=== PATIENT | female | born 2000 | race Caucasian/White ===

== ENCOUNTER 2024-07-24 11:12 | Emergency (ER) | payer BC, SELFPAY ==
[2024-07-24 11:20] VITALS: BP 109/66; PULSE 70; TEMP 36.5; O2SAT 100; BMI 24.6
--- NOTE | 2024-07-24 11:30 | US_ITS ---
[address] [address] Patient Name: RONALDO SANCHEZ MRN: [id number] date: 2000 Sex: F Assigned Patient Location: ER Current Patient Location: ER Accession/Order Number: [id number] Exam Date: 07/24/2024 11:31 Report Date: 07/24/2024 12:40 At the request of: ANGELITA DOVE Procedure: US OB transvaginal EXAMINATION: US OB transvaginal HISTORY: cramping, bleeding COMPARISON: No relevant comparison available. FINDINGS: The gestational sac measures 6.2 mm, irregularly-shaped with fluid around the amniotic brain CRL: 3.73 cm, 10 weeks 4 days Yolk sac: 5.3 mm Heart rate: Not observed Cervix: 4.1 cm, fluid within the endocervical canal measuring up to 3.1 mm The uterus is normal, anteverted The ovaries are not visualized Clinical age: Unknown Ultrasound age: 10 weeks 4 days Ultrasound LUZ ELENA: 02/15/2025 US/US OB transvaginal IMPRESSION: No cardiac activity observed consistent with demise Electronically authenticated by: SAKINA HERNANDEZ Date: 07/24/2024 12:40
[2024-07-24 11:41] LABS: Bilirubin Urine NEGATIVE (NEGATIVE); Blood Urine MODERATE (NEGATIVE); Clarity Urine CLEAR (CLEAR); Color Urine LT. YELLOW (YELLOW); Glucose Urine UA NEGATIVE (NEGATIVE); Ketones Urine NEGATIVE (NEGATIVE); Leukocyte Esterase Urine NEGATIVE (NEGATIVE); Nitrite Urine NEGATIVE (NEGATIVE); Protein Urine NEGATIVE (NEG/TRACE); Specific Gravity Urine 1.025 (1.005-1.025); Urobilinogen Urine 0.2 EU/dL (0.2-1.0); pH Urine 6.5 (5.0-9.0)
[2024-07-24 11:44] LABS: HCG Qualitative Urine* POSITIVE (NEGATIVE)
[2024-07-24 11:45] LABS: Internal Control Within Normal Limits
--- NOTE | 2024-07-24 11:45 | ED_ITS ---
HPI HPI - General Adult General Chief complaint: Urogenital-Female Stated complaint: BLOOD IN URINE Time Seen by Provider: 07/24/24 11:27 Source: patient and family Mode of arrival: walk-in Limitations: no limitations History of Present Illness HPI narrative: Patient presented to the emergency department for evaluation of vaginal bleeding. Patient states that she is currently approximately 6 weeks , based on when they started having, states she has not had a period in approximately 3 months, she has PCOS. Last menstrual period was in March. Has irregular periods. States that she has had multiple tests that became positive at home. Patient states that starting last night she noted some pelvic discomfort, show Sonali Little bit of cramping this morning. States that on her underwear yesterday there was some brown discharge, and this morning it was more bright, showed a bright spot of red in the toilet bowl, a small little pool, and she noted some blood on her underwear today and then again in the bathroom when she went to go urinate. Is having mild cramping intermittently, not current. G1, P0. Related Data Previous Rx's ?Medication ?Instructions ?Recorded cephalexin 500 mg capsule 500 mg PO Q8H 7 days #21 caps 07/24/24 Allergies Allergy/AdvReac Type Severity Reaction Status Date / Time No Known Drug Allergies Allergy Verified 07/24/24 11:23 Opioid HPI Opioid Management Most Recent Opioid Data: No Data to Display Review of Systems ROS Narrative Negative unless otherwise stated in the HPI PFSH PFSH Social History Little interest or pleasure in doing things: not at all Feeling down, depressed, or hopeless: not at all Exam Narrative Exam Narrative: General: NAD, AAOx3, no distress Respiratory: respiratory effort normal, speaks in full sentences, no tripod position, no accessory muscle use. Lungs clear to auscultation without rhonchi, wheezes, rales Cardiac: Regular rate and rhythm, no edema, regular s1/s2, no m/g/r Abdomen: Soft, ND/NT. No evidence of fluid wave. No pulsatile masses on exam, rebound tenderness, Mcbride sign or pain over Mcburney's point. Constitutional Vital Signs, click to edit/add: Last Vital Signs Temp 98.1 F 07/24/24 13:08 Pulse 73 07/24/24 13:08 Resp 16 07/24/24 13:08 BP 102/66 07/24/24 13:08 Pulse Ox 99 07/24/24 13:08 O2 Del Method Room Air 07/24/24 13:08 Course Vital Signs Vital signs: Vital Signs Temperature 97.7 F 07/24/24 11:20 Pulse Rate 70 07/24/24 11:20 Respiratory Rate 16 07/24/24 11:20 Blood Pressure 109/66 07/24/24 11:20 Pulse Oximetry 100 07/24/24 11:20 Oxygen Delivery Method Room Air 07/24/24 11:20 Temperature 98.1 F 07/24/24 13:08 Pulse Rate 73 07/24/24 13:08 Respiratory Rate 16 07/24/24 13:08 Blood Pressure 102/66 07/24/24 13:08 Pulse Oximetry 99 07/24/24 13:08 Oxygen Delivery Method Room Air 07/24/24 13:08 Medical Decision Making MDM Narrative Medical decision making narrative: MDM Patient with history as above presented with vaginal bleeding, cramping. History obtained from patient. Patient was nontoxic, stable. Ambulatory. Exam as above. EKG reviewed. Labs reviewed. Independently reviewed imaging. Reviewed external records. Differential diagnosis considered. Overall presentation is consistent with threatened miscarriage 1412 patient was seen and evaluated for above-stated complaint. Labs show no specific abnormalities. Ultrasound was done showing 10-week 2 days, no heart tones. Likely threatened miscarriage incomplete miscarriage. Has OB to follow-up with, appointment is not until the . Advanced guidance has been given. Vss, pex is benign at this time. Pt to fu with pcp 1-2 days for reeval, rter should sx worsen, persist or become worrysome in any way. All incidental laboratory studies, EKG, radiologic findings have been noted and discussed with patient. Patient was reevaluated with a benign exam at this time. Pt expressed understanding and agreement with plan of care at this time. Will fu as planned. Pt stable for discharge. Lab Data Labs: Lab Results 07/24/24 07/24/24 Range/Units 11:31 11:44 WBC 6.0 (4.0-11.0) 10^3/uL RBC 4.01 L (4.20-5.40) 10^6/uL Hgb 12.5 (12.0-16.0) g/dL Hct 37.2 (36.0-48.0) % MCV 92.8 (81.0-99.0) fL MCH 31.2 (26.7-34.0) pg MCHC 33.6 (29.9-35.2) g/dL RDW 12.8 (11.0-15.0) % Plt Count 238 (150-450) 10^3/uL MPV 10.3 (9.5-13.5) fL Neut % (Auto) 70.2 (43.0-75.0) % Lymph % (Auto) 22.2 (20.5-60.0) % [place] % (Auto) 5.5 (1.7-12.0) % Eos % (Auto) 1.8 (0.9-7.0) % Baso % (Auto) 0.3 (0.2-2.0) % Neut # (Auto) 4.2 (1.4-6.5) 10^3/uL Lymph # (Auto) 1.3 (1.2-3.8) 10^3/uL [place] # (Auto) 0.3 (0.3-0.8) 10^3/uL Eos # (Auto) 0.1 (0.0-0.7) 10^3/uL Baso # (Auto) 0.0 (0.0-0.1) 10^3/uL Abs Immat Gran (auto) 0.00 (0.00-0.03) 10^3/uL Imm/Tot Granulo (auto) 0.0 (0.0-0.5) % Sodium 135 L (136-145) mmol/L Potassium 3.7 (3.5-5.1) mmol/L Chloride 100 (98-107) mmol/L Carbon Dioxide 24.0 (21.0-32.0) mmol/L Anion Gap 14.7 BUN 8.0 (7.0-18.0) mg/dL Creatinine 0.68 (0.55-1.02) mg/dL Est GFR ( Amer) >60 (>=60 mL/min/1.73m^2) Est GFR (Non-Af Amer) >60 (>=60 mL/min/1.73m^2) BUN/Creatinine Ratio 11.8 Glucose 87 (74-106) mg/dL Calcium 9.3 (8.5-10.1) mg/dL HCG, Quant 4047 mIU/mL Urine Color Lt. yellow (YELLOW) Urine Clarity Clear (CLEAR) Urine pH 6.5 (5.0-9.0) Ur Specific [place] 1.025 (1.005-1.025) Urine Protein Negative (NEG/TRACE) mg/dL Urine Glucose (UA) Negative (NEGATIVE) mg/dL Urine Ketones Negative (NEGATIVE) mg/dL Urine Occult Blood Moderate A (NEGATIVE) Urine Nitrite Negative (NEGATIVE) Urine Bilirubin Negative (NEGATIVE) Urine Urobilinogen 0.2 (0.2-1.0) EU/dL Ur Leukocyte Esterase Negative (NEGATIVE) Urine RBC 2-5 A (0-2) #/HPF Urine WBC 2-5 A (NONE SEEN) #/HPF Ur Squamous Epith Cells Few A (NONE/RARE) #/LPF Urine Crystals None seen (None Seen) #/HPF Urine Bacteria Small A (NONE SEEN) #/HPF Urine Casts None seen (NONE SEEN) #/LPF Urine Mucus Moderate A (NONE SEEN) Ur Culture Indicated? Yes Urine HCG, Qual Positive A (NEGATIVE) Blood Type A Positive Antibody Screen Negative Discharge Plan Discharge Chief Complaint: Urogenital-Female Clinical Impression: Threatened miscarriage in early Patient Disposition: Home, Self-Care Time of Disposition Decision: 14:10 Prescriptions / Home Meds: New cephalexin 500 mg capsule 500 mg PO Q8H 7 Days Qty: 21 0RF Print Language: Scottish Instructions: Threatened Miscarriage (ED) Additional Instructions: Call your OB office today Referrals: Hamilton Monaco MD [Primary Care Provider] - 1 week
[2024-07-24 11:46] LABS: Urine Microscopic Indicated YES
[2024-07-24 11:49] LABS: Basophils Percent Auto 0.3 % (0.2-2.0); Eosinophils Absolute Auto 0.1 10^3/uL (0.0-0.7); Eosinophils Percent Auto 1.8 % (0.9-7.0); Hematocrit 37.2 % (36.0-48.0); Hemoglobin 12.5 g/dL (12.0-16.0); Lymphocytes Absolute Auto 1.3 10^3/uL (1.2-3.8); Lymphocytes Percent Auto 22.2 % (20.5-60.0); Mean Corpuscular HGB Conc 33.6 g/dL (29.9-35.2); Mean Corpuscular Hemoglobin 31.2 pg (26.7-34.0); Mean Corpuscular Volume 92.8 fL (81.0-99.0); Mean Platelet Volume 10.3 fL (9.5-13.5); Monocytes Absolute Auto 0.3 10^3/uL (0.3-0.8); Monocytes Percent Auto 5.5 % (1.7-12.0); Neutrophils Absolute Auto 4.2 10^3/uL (1.4-6.5); Neutrophils Percent Auto 70.2 % (43.0-75.0); Platelet Count 238 10^3/uL (150-450); Red Blood Count 4.01 10^6/uL (4.20-5.40); Red Cell Distribution Width 12.8 % (11.0-15.0)
[2024-07-24 11:59] LABS: Bacteria Urine SMALL #/HPF (NONE SEEN); Crystals Seen? None Seen #/HPF (None Seen); Mucus Urine MODERATE (NONE SEEN); Squamous Epithelial Cell Urine FEW #/LPF (NONE/RARE)
[2024-07-24 12:00] LABS: Cast Seen? NONE SEEN #/LPF (NONE SEEN); Urine Culture Indicated YES
[2024-07-24 12:33] LABS: Anion Gap 14.7; BUN Creatinine Ratio 11.8; Calcium 9.3 mg/dL (8.5-10.1); Chloride 100 mmol/L (98-107); Estimated GFR (African America >60 (>=60 mL/min/1.73m^2); Estimated GFR (Non-African Ame >60 (>=60 mL/min/1.73m^2); Glucose 87 mg/dL (74-106); Potassium 3.7 mmol/L (3.5-5.1); Sodium 135 mmol/L (136-145)
[2024-07-24 12:36] LABS: HCG Quantitative 4047 mIU/mL
[2024-07-24 13:08] VITALS: BP 102/66; PULSE 73; TEMP 36.7; O2SAT 99
== END 2024-07-24 14:26 | disposition home or self-care (01) ==
PROVIDERS: Emergency Provider Emergency Medicine; PCP Family Medicine
DX: O20.0 Threatened abortion (principal); O99.281 Endocrine, nutritional and metabolic diseases complicating pregnancy, first trimester; E28.2 Polycystic ovarian syndrome; Z3A.01 Less than 8 weeks gestation of pregnancy
CPT/HCPCS: 36415; 76817; 80048; 81001; 84702; 84703; 85025; 86850; 86900; 86901; 87086; 99284

== ENCOUNTER 2024-07-26 01:07 | Emergency (ER) | payer BC, SELFPAY ==
[2024-07-26 01:12] VITALS: BP 130/79; PULSE 85; TEMP 36.8; O2SAT 99; BMI 24.6
--- NOTE | 2024-07-26 01:16 | ED_ITS ---
HPI - Female Genitourinary General Chief complaint: OB/Uterine Contractions Stated complaint: miscarriage 10 weeks Time Seen by Provider: 07/26/24 01:13 Source: patient Mode of arrival: walk-in Limitations: no limitations History of Present Illness HPI Narrative: This 23-year-old female G1, P0 who is approximately 10 weeks and had an ultrasound done on 07/24/2024 that showed demise with a 10-week gestational fetus with no heart rate presents for evaluation after she passed the fetus at home and is having abdominal cramping and vaginal bleeding. She states that approximately 1 hour prior to arrival while she was sleeping she woke up with some lower abdominal cramping. She went to the bathroom to change her pad at which time the fetus was present on her pad. Since that time she has had moderate vaginal bleeding. Her notes that she bled through her underwear while sitting in the lobby waiting to come back. She denies any chest pain or shortness of breath. She denies any dizziness. She has not had a fever. She has a small fetus, consistent with a 10-week gestation in a Ziploc bag Her SENIOR QA ENGINEER is Dr. Joya Her blood type is A positive. Related Data Previous Rx's ?Medication ?Instructions ?Recorded cephalexin 500 mg capsule 500 mg PO Q8H 7 days #21 caps 07/24/24 Allergies Allergy/AdvReac Type Severity Reaction Status Date / Time No Known Drug Allergies Allergy Verified 07/26/24 01:14 Review of Systems ROS Status of ROS 10 or more systems reviewed and unremark able except as noted in history and below PFSH PFSH Social History Little interest or pleasure in doing things: not at all Feeling down, depressed, or hopeless: not at all Exam Narrative Exam Narrative: Vital signs and Nursing Notes reviewed: Patient is afebrile with a normal pulse, normal blood pressure, she is not hypoxic with pulse ox of 99% on room air General: Tearful alert female, no respiratory distress HEENT: Normocephalic atraumatic, mucous membranes are moist and pink, eyes are clear, normal conjunctiva, vision is grossly intact Chest: Lungs are clear to auscultation with good air entry, there is no wheezing rhonchi or rales appreciated no accessory muscle use, patient is speaking in complete sentences-no chest wall tenderness to palpation CVS: Regular rate and rhythm S1-S2, no murmurs rubs or gallops, pulses are brisk and equal bilaterally ABD: Soft, flat, mild lower abdominal tenderness with no rebound guarding or rigidity : There is a moderate size clot at the vaginal introitus. Pelvic exam was performed with RN at bedside. The gestational sac was gently removed with Alison forceps. It appears that I was able to remove the entire gestational sac intact. Pelvic exam was performed again after the gestational sac was removed and there is mild bleeding but no excessive hemorrhage Extremities: Moving all extremities, no lower extremity tenderness or swelling noted, negative Homans' sign, pulses are brisk and equal bilaterally Skin: Normal in appearance without rash,pallor, petechiae or purpura Neuro: No focal deficits Constitutional Vital Signs, click to edit/add: Last Vital Signs Temp 98.3 F 07/26/24 01:12 Pulse 85 07/26/24 01:12 Resp 18 07/26/24 01:12 BP 130/79 07/26/24 01:12 Pulse Ox 99 07/26/24 01:12 O2 Del Method Room Air 07/26/24 01:12 Course Vital Signs Vital signs: Vital Signs Temperature 98.3 F 07/26/24 01:12 Pulse Rate 85 07/26/24 01:12 Respiratory Rate 18 07/26/24 01:12 Blood Pressure 130/79 07/26/24 01:12 Pulse Oximetry 99 07/26/24 01:12 Oxygen Delivery Method Room Air 07/26/24 01:12 Temperature 98.3 F 07/26/24 01:12 Pulse Rate 85 07/26/24 01:12 Respiratory Rate 18 07/26/24 01:12 Blood Pressure 130/79 07/26/24 01:12 Pulse Oximetry 99 07/26/24 01:12 Oxygen Delivery Method Room Air 07/26/24 01:12 MDM - Female Genitourinary MDM Narrative Medical decision making narrative: This 23-year-old female presents for evaluation after she passed a 10-week fetus at home. She was seen here 2 days ago after having some abdominal cramping and vaginal bleeding and an ultrasound was performed that showed a 10-week fetus with no heart tones consistent with demise. She was sent home and has a follow-up later today with her SENIOR QA ENGINEER however during the night she started having some abdominal cramping and vaginal bleeding and passed the fetus at home. She brought the fetus to the emergency department with her. It was easily identifiable as a fetus. A pelvic exam was performed as she was having vaginal bleeding. There was a moderate size clot at the vaginal introitus and the gestational sac was gently removed with jesse forceps. Repeat pelvic exam after removal of the gestational sac did not reveal any excessive bleeding but some mild bleeding. Routine labs were ordered. She has a normal white count and hemoglobin is stable from 2 days ago. Electrolytes are normal. The fetus and gestational sac and large blood clot was sent to the lab. The patient does not wish to have genetic testing performed. She was reevaluated after being treated with morphine and Zofran and remains hemodynamically stable. She had some burning epigastric discomfort and was given a dose of toradol and some water which resolved her symptoms. She has not had any recurrent heavy vaginal bleeding. She was encouraged to keep her appointment with Dr Joya later today. Medical Records Attestation: I reviewed the patient's medical records. Medical records narrative: [place] [address] Ultrasound Report Signed Patient: RONALDO SANCHEZ MR#: [id number] : 2000 Acct:[id number] Age/Sex: 23 / F ADM Date: 07/24/24 Loc: ER Attending Dr: Ordering Physician: Angelita Aragon M.D. Date of Service: 07/24/24 Procedure(s): US OB transvaginal Accession Number(s): [id number] cc: Angelita Aragon M.D.; Hamilton Monaco M.D.~ [facility] [place] [id number] Patient Name: RONALDO SANCHEZ MRN: [id number] date: 2000 Sex: F Assigned Patient Location: ER Current Patient Location: ER Accession/Order Number: [id number] Exam Date: 07/24/2024 11:31 Report Date: 07/24/2024 12:40 At the request of: ANGELITA ARAGON Procedure: US OB transvaginal EXAMINATION: US OB transvaginal HISTORY: cramping, bleeding COMPARISON: No relevant comparison available. FINDINGS: The gestational sac measures 6.2 mm, irregularly-shaped with fluid around the amniotic brain CRL: 3.73 cm, 10 weeks 4 days Yolk sac: 5.3 mm Heart rate: Not observed Cervix: 4.1 cm, fluid within the endocervical canal measuring up to 3.1 mm The uterus is normal, anteverted The ovaries are not visualized Clinical age: Unknown Ultrasound age: 10 weeks 4 days Ultrasound LUZ ELENA: 02/15/2025 US/US OB transvaginal IMPRESSION: No cardiac activity observed consistent with demise Electronically authenticated by: SAKINA HERNANDEZ Date: 07/24/2024 12:40 Lab Data Labs: Lab Results 07/26/24 Range/Units 01:30 WBC 7.7 (4.0-11.0) 10^3/uL RBC 4.05 L (4.20-5.40) 10^6/uL Hgb 12.8 (12.0-16.0) g/dL Hct 37.5 (36.0-48.0) % MCV 92.6 (81.0-99.0) fL MCH 31.6 (26.7-34.0) pg MCHC 34.1 (29.9-35.2) g/dL RDW 12.7 (11.0-15.0) % Plt Count 231 (150-450) 10^3/uL MPV 10.2 (9.5-13.5) fL Neut % (Auto) 66.5 (43.0-75.0) % Lymph % (Auto) 24.4 (20.5-60.0) % [place] % (Auto) 6.1 (1.7-12.0) % Eos % (Auto) 2.6 (0.9-7.0) % Baso % (Auto) 0.3 (0.2-2.0) % Neut # (Auto) 5.1 (1.4-6.5) 10^3/uL Lymph # (Auto) 1.9 (1.2-3.8) 10^3/uL [place] # (Auto) 0.5 (0.3-0.8) 10^3/uL Eos # (Auto) 0.2 (0.0-0.7) 10^3/uL Baso # (Auto) 0.0 (0.0-0.1) 10^3/uL Abs Immat Gran (auto) 0.01 (0.00-0.03) 10^3/uL Imm/Tot Granulo (auto) 0.1 (0.0-0.5) % PT 10.2 (9.0-11.6) sec INR 0.96 Sodium 135 L (136-145) mmol/L Potassium 3.6 (3.5-5.1) mmol/L Chloride 101 (98-107) mmol/L Carbon Dioxide 20.0 L (21.0-32.0) mmol/L Anion Gap 17.6 BUN 8.0 (7.0-18.0) mg/dL Creatinine 0.69 (0.55-1.02) mg/dL Est GFR ( Amer) >60 (>=60 mL/min/1.73m^2) Est GFR (Non-Af Amer) >60 (>=60 mL/min/1.73m^2) BUN/Creatinine Ratio 11.6 Glucose 95 (74-106) mg/dL Calcium 9.6 (8.5-10.1) mg/dL Total Bilirubin 0.7 (0.2-1.0) mg/dL AST 15 (15-37) U/L ALT 11 L (14-59) U/L Alkaline Phosphatase 76 (46-116) U/L Total Protein 7.2 (6.4-8.2) g/dL Albumin 3.4 (3.4-5.0) g/dL Globulin 3.8 g/dL Albumin/Globulin Ratio 0.9 Discharge Plan Discharge Chief Complaint: OB/Uterine Contractions Clinical Impression: Complete miscarriage Patient Disposition: Home, Self-Care Prescriptions / Home Meds: No Action cephalexin 500 mg capsule 500 mg PO Q8H 7 Days Qty: 21 0RF Print Language: [place] Citizen Referrals: Hamilton Monaco MD [Primary Care Provider] - 1 week
[2024-07-26] MEDS: ONDANSETRON PF 4 MG/2 ML VIAL IV (01:37)
[2024-07-26 01:38] LABS: Basophils Percent Auto 0.3 % (0.2-2.0); Eosinophils Absolute Auto 0.2 10^3/uL (0.0-0.7); Eosinophils Percent Auto 2.6 % (0.9-7.0); Hematocrit 37.5 % (36.0-48.0); Hemoglobin 12.8 g/dL (12.0-16.0); Immature Granulocytes Abs Auto 0.01 10^3/uL (0.00-0.03); Immature Granulocytes Pct Auto 0.1 % (0.0-0.5); Lymphocytes Absolute Auto 1.9 10^3/uL (1.2-3.8); Lymphocytes Percent Auto 24.4 % (20.5-60.0); Mean Corpuscular HGB Conc 34.1 g/dL (29.9-35.2); Mean Corpuscular Hemoglobin 31.6 pg (26.7-34.0); Mean Corpuscular Volume 92.6 fL (81.0-99.0); Mean Platelet Volume 10.2 fL (9.5-13.5); Monocytes Absolute Auto 0.5 10^3/uL (0.3-0.8); Monocytes Percent Auto 6.1 % (1.7-12.0); Neutrophils Absolute Auto 5.1 10^3/uL (1.4-6.5); Neutrophils Percent Auto 66.5 % (43.0-75.0); Platelet Count 231 10^3/uL (150-450); Red Blood Count 4.05 10^6/uL (4.20-5.40); Red Cell Distribution Width 12.7 % (11.0-15.0); White Blood Count 7.7 10^3/uL (4.0-11.0)
[2024-07-26] MEDS: MORPHINE SULFATE 4 MG/ML VIAL IV (01:40)
[2024-07-26 01:51] LABS: Alanine Aminotransferase 11 U/L (14-59); Albumin Globulin Ratio 0.9; Albumin Level 3.4 g/dL (3.4-5.0); Alkaline Phosphatase 76 U/L (46-116); Anion Gap 17.6; Aspartate Amino Transferase 15 U/L (15-37); BUN Creatinine Ratio 11.6; Bilirubin Total 0.7 mg/dL (0.2-1.0); Calcium 9.6 mg/dL (8.5-10.1); Chloride 101 mmol/L (98-107); Estimated GFR (African America >60 (>=60 mL/min/1.73m^2); Estimated GFR (Non-African Ame >60 (>=60 mL/min/1.73m^2); Globulin 3.8 g/dL; Glucose 95 mg/dL (74-106); INR 0.96; Potassium 3.6 mmol/L (3.5-5.1); Prothrombin Time 10.2 sec (9.0-11.6); Sodium 135 mmol/L (136-145); Total Protein 7.2 g/dL (6.4-8.2)
[2024-07-26] MEDS: KETOROLAC TROMETHAMINE 30 MG/ML VIAL IVP (03:02)
[2024-07-26 03:37] VITALS: BP 128/72; PULSE 80; O2SAT 100
== END 2024-07-26 03:37 | disposition home or self-care (01) ==
PROVIDERS: Emergency Provider Emergency Medicine; PCP Family Medicine
DX: O03.9 Complete or unspecified spontaneous abortion without complication (principal)
CPT/HCPCS: 36415; 80053; 85025; 85610; 96374; 96375; 99284; J1885; J2270; J2405

== ENCOUNTER 2024-07-31 12:55 | Outpatient (OUT) | payer BC, SELFPAY ==
[2024-07-31 13:38] LABS: HCG Quantitative 176 mIU/mL
== END 2024-07-31 12:56 | disposition home or self-care (01) ==
LOC: LAB 12:56
PROVIDERS: PCP Family Medicine; Visit Provider Physician Assistant
DX: O36.80X0 Pregnancy with inconclusive fetal viability, not applicable or unspecified (principal)
CPT/HCPCS: 36415; 84702

== ENCOUNTER 2024-08-02 14:33 | Outpatient (OUT) | payer BC, SELFPAY ==
--- NOTE | 2024-08-02 14:35 | US_ITS ---
The [address] [address] Patient Name: RONALDO SANCHEZ MRN: [id number] date: 2000 Sex: F Assigned Patient Location: [facility] Current Patient Location: Accession/Order Number: [id number] Exam Date: 08/02/2024 14:36 Report Date: 08/04/2024 07:21 At the request of: PRINCE ISABEL Procedure: US pelvis transvaginal EXAMINATION: US pelvis transvaginal HISTORY: POST MISCARRIAGE COMPARISON: No relevant comparison available. FINDINGS: The uterus is prominent in size measuring 11.1 x 4.7 x 7.0 cm. No focal myometrial mass. The uterus is anteverted, anteflexed. The endometrium measures 5 mm, normal. Noted in the cervix is a 9.4 x 3.3 x 6.6 mm area of soft tissue echotexture, indeterminate The right ovary is normal measuring 2.5 x 1.8 x 3.3 cm. Normal color and Doppler flow The left ovary is normal measuring 3.5 x 0.7 x 1.8 cm. Normal color and Doppler flow No free fluid US/US pelvis transvaginal IMPRESSION: 9.4 mm soft tissue lesion in the cervix without color flow, nonspecific Electronically authenticated by: SAKINA HERNANDEZ Date: 08/04/2024 07:21
--- OUTSIDE RECORDS SUMMARY | 2024-08-02 14:36 | XMS_ITS | CCD ---
Author Organization [facility] Care Team Providers Care A&P Technician Name Role Phone Ventura, Natasha Unavailable MD Hamilton Motta Primary Care Provider [phone] ANASTACIO Ventura Attending Provider [phone] PAY ., DR DURAND Admitting Unavailable PAY ., DR DURAND Consulting Unavailable PAY ., DR DURAND Attending Unavailable ÁNGELA, DR HAMILTON Nicholson Primary Care Unavailable KAYCE ., CED Consulting Unavailable Hamilton Motta MD Primary Care Provider [phone] DO Sarah Choi Attending Provider Sarah Choi Attending Unavailable Steph, Sarah Lynch Admitting Unavailable KHRIS KIM Attending Unavailable AIDE ISABEL Attending Unavailable HAMILTON MOTTA Attending Unavailable Medications Current Medications Medication Drug Class(es) Dates Sig (Normalized) Sig (Original) azithromycin 250 mg oral tablet (3 sources) Macrolide Antimicrobial Start: 09-29-2023 End: 07-26-2024 azithromycin (Zithromax Z-Dayton) 250 MG tablet Indications: Dysuria Take 2 tablets (500 mg) on Day 1, followed by 1 tablet (250 mg) once daily on Days 2 through 5. 6 tablet 09/29/2023 07/26/2024 Discontinued cephalexin 500 mg oral capsule (2 sources) Cephalosporin Antibacterial Start: 07-24-2024 take 1 capsule by mouth every eight hours cephalexin (Keflex) 500 MG capsule Take 500 mg by mouth every 8 (eight) hours 07/24/2024 Active Ethinyl Estradiol / norgestimate (5 sources) Progestin, Estrogen Start: 02-22-2024 End: 07-26-2024 take 1 tablet by mouth once daily norgestimate-ethin yl estradiol (Tri-Linyah) 0.18/0.215/0.25 MG-35 MCG tablet Indications: Family planning Take 1 tablet by mouth Daily 28 tablet 5 02/22/2024 07/26/2024 Discontinued Start: 02-22-2024 End: 02-21-2025 take 1 tablet by mouth once daily norgestimate-ethinyl estradiol (Tri-Linyah) 0.18/0.215/0.25 MG-35 MCG tablet Indications: Family planning Take 1 tablet by mouth Daily 28 tablet 5 02/22/2024 02/21/2025 Active take 1 tablet by kannan once daily Tri-Linyah 0.18/0.215/0.25 MG-35 MCG TAKE 1 TABLET BY MOUTH DAILY Oral for 28 Days Active nitrofurantoin, macrocrystals 25 mg / nitrofurantoin, monohydrate 75 mg oral capsule (3 sources) Nitrofuran Antibacterial Start: 02-14-2023 take 1 capsule by mouth every twelve hours Macrobid 100 MG 1 capsule with food Orally every 12 hrs for 5 days February, Active Problems Problem Classification Problem Date Documented Da te Episodic/Chronic Genitourinary symptoms and ill-defined conditions (8 sources) Dysuria; Translations: [Dysuria] Onset: 02-19-2023 Episodic Other nervous system disorders (2 sources) Chronic pain; Translations: [Other chronic pain] Chronic Spontaneous (2 sources) Miscarriage; Translations: [Complete or unspecified spontaneous without complication] 07-26-2024 Episodic Urinary tract infections (1 source) Acute cystitis with hematuria Episodic Results Test Name Value Interpretation Reference Range Facil itelliott Arnoldo 07-26-2024 L Specimen: [id number] Received: 07/26/24 Status: MORGAN Londnoo Num: [id number] Spec Type: Surgical Subm Dr: Sarah Choi DO Tissues: A Products of Conception - Spontaneous or Missed (POD) Procedures: HE/6, Gross/Micro L4 Age/ Patient Sex Location Account Attending Physician Natasha Sanchez 23/F [place] [id number] Sarah Choi DO SPEC NUM: [id number] RECD: 07/26/24 STATUS: MORGAN LONDONO NUM: [id number] KIMBERLYN: 07/26/24- SUBM DR: Sarah Choi DO ENTERED: 07/26/24-1320 [facility] DR: [place],Lab SPEC TYPE: Surgical DEPT: HOA MCKEON ENTERED BY: [id number] RECV BY: [id number] ORDERED: HE, Gross/Micro L4 ORDERED: , Gross/Micro L4 Pathological Diagnosis Tissue labeled as products of conception: -Immature late first trimester placenta with severe degeneration of the decidual layer of the membrane and basal plate, including patchy fibrinoid, occasional necrotizing, and mild inflammatory type degenerations with patchy superimposed chronic deciduitis and the occasionally admixed plasma cells, consistent with degenerated POC and the miscarriage -Focal disruption of the disc with a large hemorrhagic clot with associated foci of PMN response of surrounding parenchyma, consistent with focal placental abruption, likely per cause of the IUFD in this case -Incidental slightly macerated male fetus baby for gross only examination Clinical Information Miscarriage approximate 10 weeks Gross Description The specimen is received in formalin with the patient's name and POD the specimen consists of a 4.0 g male fetus. The attached skin is wade-brown and smooth. The ears and eyelids are not developed. The lips and nares are not fully developed. There is a tongue and hard palate. The internal organs are macerated. The anus is not patent. Intercanthus 0.5 cm Outer canthus 1.0 cm Specimen: [id number] Received: 07/26/24 Status: MORGAN Bry Num: [id number] Spec Type: Surgical Subm Dr: Sarah Choi DO Tissues: A Products of Conception - Spontaneous or Missed (POD) Procedures: , Gross/Micro L4 Patient: GriffinNatasha [id number] (Continued) Specimen: [id number] Received: 07/26/24 (Continued) Gross Description (Continued) Signed (signature on file) Kerline Stevens MD 07/29/24 1152 Specimen: [id number] Received: 07/26/24 Status: MORGAN Londono Num: [id number] Spec Type: Surgical Subm Dr: Sarah Choi DO Tissues: A Products of Conception - Spontaneous or Missed (POD) Procedures: AFSANEH/Jose Guadalupe Gilbert/Juan L4 Patient: GriffinNatasha [id number] (Continued) Specimen: [id number] Received: 07/26/24 (Continued) Gross Description (Continued) Head circumference 4.1 cm Chest circumference 3.7 cm Abdomen circumference 4.0 cm Attached umbilical cord 3.5 cm in length with a diameter of 0.2 cm Right hand 0.3 cm Left hand 0.4 cm Right foot 0.4 cm Left foot 0.3 cm Cactus to rump 5.5 cm Cactus to heel 6.5 cm Received in the same container is a 65 g 11.0 x 8.0 x 1.5 cm ovoid placenta. The surface is pink-wade with underdeveloped vascular structures. The umbilical cord and insertion point is not identified. The membranes are wade-brown, thickened and inserted at the margin. The maternal surface is wade-pink with underdeveloped,cotyl edons. Greenhouse Grower sections are as follows: A1 membranes A2-A5 full-thickness sections A6 hemorrhagic region DM Microscopic Description Microscopic examinations are performed supporting the above interpretation CPT Codes 29238 [id number] Specimen: [id number] Received: 07/26/24 Status: MORGAN Londono Num: [id number] Spec Type: Surgical Subm Dr: Sarah Lynch Marker DO Tissues: A Products of Conception - Spontaneous or Missed (POD) Procedures: HE/6, Gross/Micro L4 Patient: Natasha Sanchez [id number] (Continued) Signed (signature on file) Kerline Paula (more content not included)... Normal [facility] URINE CULTURE, ROUTINEon Bacteria identified Cx Nom (U) Urine Culture, Routine [facility] Bacteria identified Cx Nom (U) Mixed urogenital ivania [facility] Bacteria identified Cx Nom (U) 50,000-100,000 colony forming units per mL [facility] Bacteria identified Cx Nom (U) Performed at: [facility] Bacteria identified Cx Nom (U) [address], [place] [id number] [facility] Bacteria identified Cx Nom (U) Isolation Washer: Junaid Bullard PhD, Phone: [phone] [facility] ER URINE PROFILEon 3 Bilirubin Ql (U) Negative Normal NEGATIVE The [facility] Comment on above: Performed By: #### GILL BLANCO #### [facility] [address] [place] [address] Dr. Honorio Stevens Clarity (U) CLEAR Normal CLEAR [facility] Comment on above: Performed By: #### E RUR, UMICRO #### [facility] [address] [place] [address] Dr. Honorio Stevens Color (U) DK. YELLOW Normal YELLOW [facility] Comment on above: Performed By: #### Yevgeniy PRITCHETT UMICRO #### [facility] [address] [place] [address] Dr. Honorio MCKEON A micrscopic examination will be performed if indicated. Normal [facility] Comment on above: Performed By: #### Yevgeniy PRITCHETT UMICRO #### [facility] [address] [place] [address] Dr. Honorio Stevens Glucose Ql (U) Negative Normal NEGATIVE The [facility] Comment on above: Performed By: #### Yevgeniy PRITCHETT UMICRO #### [facility] [address] [place] [address] Dr. Honorio Stevens Hemoglobin Ql (U) SMALL Abnormal NEGATIVE The [facility] Comment on above: Performed By: #### ERIC BLANCOICRO #### [facility] [address] [place] [address] Dr. Honorio Stevens Ketones Ql (U) Negative Normal NEGATIVE [facility] Comment on above: Performed By: #### JADIEL BLANCORO #### [facility] [address] [place] [address] Dr. Honorio Stevens LEUKOCYTES Negative Normal NEGATIVE [facility] Comment on above: Performed By: #### ERIC BLANCOICRO #### [facility] [address] [place] [address] Dr. Honorio Stevens Nitrite Ql (U) Negative Normal NEGATIVE The [facility] Comment on above: Performed By: #### Yevgeniy PRITCHETT UMICRO #### [facility] [address] [place] [address] Dr. Honorio Stevens pH (U) 6.5 [pH] Normal 5-9 [facility] Comment on above: Performed By: #### ERIC BLANCOICRO #### [facility] [address] [place] [address] Dr. Honorio Stevens SPEC GRAVITY 1.020 Normal 1.005-<=1.025 The [facility] Comment on above: Performed By: #### E RUR UMICRO #### [facility] [address] [place] [address] Dr. Honorio Stevens UA PROTEIN Negative Normal NEGATIVE/ TRACE [facility] Comment on above: Performed By: #### E RUR, UMICRO #### [facility] [address] [place] [address] Dr. Honorio Stevens UR MICRO IND INDICATED Normal [facility] Comment on above: Performed By: #### E RUR, UMICRO #### [facility] [address] [place] [address] Dr. Honorio Stevens Urobilinogen Qn (U) 0.2 {Jamaal'U}/dL Normal 0.2 - 1.0 [facility] Comment on above: Performed By: #### E RUR UMICRO #### [facility] [address] [place] [address] Dr. Honorio Stevens URon 02-19-2023 , QUAL Negative Normal NEGATIVE [facility] Comment on above: Performed By: #### P REGU #### [facility] [address] [place] [address] Dr. Honorio Stevens URINE MICROSCOPIC ONLYon BACTERIA NONE SEEN Normal NONE SEEN [facility] Comment on above: Performed By: #### E RUR UMICRO #### [facility] [address] [place] [address] Dr. Honorio Stevens Bacteria identified Cx Nom (U) NOT INDICATED Normal [facility] Comment on above: Performed By: #### E RUR, UMICRO #### [facility] [address] [place] [address] Dr. Honorio Stevens CAST SEEN Abnormal NONE SEEN [facility] Comment on above: Performed By: #### E RUR, UMICRO #### [facility] [address] [place] [address] Dr. Honorio Stevens Crystals LM Nom (Urine sed) NONE SEEN Normal NONE SEEN [facility] Comment on above: Performed By: #### E RUR, UMICRO #### [facility] [address] [address] [address] Honorio Stevens Epithelial cells LM Ql (Urine sed) FEW Abnormal NONE SEEN /RARE [facility] Comment on above: Performed By: #### E RUR, UMICRO #### [facility] [address] [address] [address] Honorio Stevens HYALINE CAST RARE Normal [facility] Comment on above: Performed By: #### E RUR, UMICRO #### [facility] [address] [address] [address] Honorio Stevens MUCOUS TRACE Abnormal NONE SEEN [facility] Comment on above: Performed By: #### E RUR, UMICRO #### [facility] [address] [place] [address] Dr. Honorio Stevens RBC 0-2 Normal 0-2 [facility] Comment on above: Performed By: #### E PRASHANTR, UMICRO #### [facility] [address] [address] [address] Honorio Stevens WBC NONE SEEN Normal NONE SEEN [facility] Comment on above: Performed By: #### E PRASHANTR, UMICRO #### [facility] [address] [place] [address] Dr. Honorio Stevens Urinalysis - AUTOMATEDon Appearance (U) clear [facility]iew Other Bilirubin Ql (U) Negative [employer] [facility] [employer] Other Color (U) orange [employer] Other Glucose Ql (U) Negative behaview Other Hemoglobin Ql (U) Negative [employer] [facility] [employer] Other Ketones Ql (U) Negative [facility]iew Other Leukocyte esterase Test strip Ql (U) trace [employer] Other Nitrite Ql (U) Positive [facility]iew Other pH (U) 8.5 [pH] [facility] [employer] Other Protein Ql (U) Negative [facility] [employer] Other Specific gravity (U) [Rel density] 1.020 [place] [employer] Other Urobilinogen (U) [Mass/Vol] 1.0 mg/dL [place] [employer] Other Urinalysis - AUTOMATED [facility] [employer] Other Vital Signs Date Time Vital Sign Value Performing Clinician Facility 07-26-2024 11:09-040 Body height 154.9 cm Aide HODGES Work Phone: [facility] 07-26-2024 11:09-0400 Body mass index (BMI) [Ratio] 24.75 kg/m2 Aide HODGES Work Phone: [facility] 07-26-2024 11:09-0400 Body weight 59.42 kg Aide HODGES Work Phone: [facility] 07-26-2024 11:09-0400 Diastolic blood pressure 72 mm[Hg] Aide HODGES Work Phone: [facility] 07-26-2024 11:09-0400 Systolic blood pressure 116 mm[Hg] Aide HODGES Work Phone: [facility] 02-14-2023 12:50-0400 Body height 154.94 cm Natasha Ventura Other [place] [employer] Other Encounters Encounter Date Encounter Type Care Provider Facility Start: 07-31-2024 End: 07-31-2024 ambulatory HAMILTON MOTTA Not Available Start: 07-26-2024 End: 07-26-2024 Office outpatient visit 15 minutes Aide HODGES Work Phone: [facility] Comment on above: Miscarriage Start: 07-26-2024 End: 07-26-2024 ambulatory AIDE ISABEL Not Available Start: 07-26-2024 End: 07-26-[address] [facility] Work Phone: Start: 07-26-2024 End: 07-26-2024 Departed Referred DO Sarah Choi Work Phone: [facility] Start: 07-24-2024 End: 07-25-2024 [facility] Result Encounter Generic External Data Provider [facility] External [facility] Unsolicited Start: 07-24-2024 End: 07-25-2024 [facility] Result Encounter Generic External Data Provider [facility] External [facility] Unsolicited Start: 09-27-2023 End: 09-27-2023 ambulatory KHRIS KIM Not Available Start: 02-19-2023 End: 02-19-[address] KIZZY LAINEZ . Facility: Start: 02-18-2023 End: 02-18-2023 ambulatory Natasha Ventura Other [employer] Other Start: 02-18-2023 Telephone encounter Natasha Ventura [facility] [address] Start: 02-14-2023 Office outpatient vi sit 15 minutes Natasha Ventura [facility] Start: 02-14-2023 End: 02-14-2023 ambulatory MD Hamilton Motta Work Phone: [employer] Other Start: 02-14-2023 End: 02-14-2023 Departed Referred MD Hamilton Motta Work Phone: [facility] [place] Work Phone: Procedures Date Procedure Procedure Detail Performing Clinician Start: 07-24-2024 Bacteria identified in Urine by Culture Generic External Data Provider Plan of Treatment Date Care Activity Detail Author Start: 07-26-2024 End: 07-26-2025 US for US PELVIS-TRANSVAG IF INDICATED Imaging Routine Miscarriage Expected: 07/26/2024 (Approximate), Expires: 07/26/2025 [facility] Work Phone: Comment on above: Expected: 07/26/2024 (Approximate), Expires: 07/26/2025 Start: 07-26-2024 End: 07-26-2024 Patient encounter procedure 07/26/2024 11:10 AM EDT Office Visit [facility] [address] [place] [address] Aide Isabel PA [address] [place] [address] [facility] Start: 06-18-2024 Influenza vaccination Influenza Vacc ine (#1) [facility] Start: 02-14-2023 Bacteria identified in Urine by Culture Urine Culture [facility] Payers Date Payer Category Payer Self-pay [id number] 2020 Unknown BCBS BCBS [id number] [id number] 2020-Present [phone] [address] [place] [address] [id number] 2000 Unknown [id number] 2000 Unknown [id number] 2000 Unknown [id number] 2000 Unknown [id number] 1959 [facility] [id number] Medicaid [place] [employer] [id number] 101 [id number] Unknown [id number] Social History Date Type Detail Facility Unknown if ever smoked [employer] Other Start: 09-27-2023 Sex Assigned At N [employer] Other Start: 2000 Sex Assigned At Female F [facility] Start: 04-30-2023 Tobacco smoking stat NHIS Never smoked tobacco [facility] Start: 04-30-2023 Tobacco use and exposure Smokeless tobacco non-user [facility] Start: 09-27-2023 End: 07-26-2024 Alcoholic beverage intake Lifetime non-drinker (finding) [facility] Start: 09-27-2023 History of [address] function [facility] Start: 2000 Sex assigned at Not on file N [facility] History of Present illness Narrative 07-26-2024 TRACIE Parry - 07/26/2024 11:10 AM EDT Note Date & Type Note Facility 07-26-2024 History of Presen t illness Narrative Reason for Appointment: Patient ID: Natasha Sanchez is a 23 y.o. female who presents for Miscarriage Patient presents today for miscarriage. MEDICATIONS Current Outpatient Medications Medication Instructions cephalexin (KEFLEX) 500 mg, Oral, Every 8 hours ALLERGIES No Known Allergies PROBLEMS Active Ambulatory Problems Diagnosis Date Noted No Active Ambulatory Problems Resolved Ambulatory Problems Diagnosis Date Noted No Resolved Ambulatory Problems No Additional Past Medical History HISTORY PAST MEDICAL HISTORY SOCIAL HISTORY History reviewed. No pertinent past medical history. Social History Tobacco Use Smoking status: Never Smokeless tobacco: Never Substance Use Topics Alcohol use: Never Drug use: Not on file FAMILY HISTORY No family history on file. SURGICAL HISTORY History reviewed. No pertinent surgical history. REVIEW OF SYSTEMS Review of Systems: Review of Systems Constitutional: Negative. HENT: Negative. Eyes: Negative. Respiratory: Negative. Cardiovascular: Negative. Gastrointestinal: Negative. Genitourinary: Negative. Musculoskeletal: Negative. Skin: Negative. Neurological: Negative. All other systems reviewed and are negative. Hematological: Negative. Endocrine: Negative. Allergic/Immunologic: Negative. OBJECTIVE Objective: Physical Exam Constitutional: Appearance: Normal appearance. She is normal weight. HENT: Head: Normocephalic. Cardiovascular: Rate and Rhythm: Normal rate. Pulses: Normal pulses. Pulmonary: Effort: Pulmonary effort is normal. Breath sounds: Normal breath sounds. Abdominal: Palpations: Abdomen is soft. Musculoskeletal: General: Normal range of motion. Neurological: General: No focal deficit present. Mental Status: She is alert and oriented to person, place, and time. Psychiatric: Mood and Affect: Mood normal. Behavior: Behavior normal. Thought Content: Thought content normal. Judgment: Judgment normal. Vitals and nursing note reviewed. Vitals: There is no height or weight on file to calculate BMI. BP: No LMP recorded. ASSESSMENT & PLAN ICD-10-CM 1. Miscarriage O03.9 Patient presents today to follow up after a recent miscarriage. I have discussed HCG lab levels and miscarriage with patient in detail. Patient was given an additional standing QUANT level lab order to have obtained and will continue to have labs drawn until value reads less than 5. She was also given an order for ultrasound. Patient has been advised to wait a full cycle until trying to conceive again, patient voiced understanding, and will call when so office can call in progesterone suppositories. Follow Up: Via telehealth with DR Joya. Documented by Kirsten Rader on behalf of: TRACIE Parry documented in this encounter [facility] Evaluation note 02-14-2023 Note Date & Type Note Facility 02-14-2023 Evaluation note Encounter Date Diagnosis Assessment Notes Jan, Dysuria (ICD-10 - R30.0) Jan, Acute cystitis with hematuria (ICD-10 - N30.01) Discussed diagnosis and dipstick findings with patient. Will treat patient for UTI. Instructed patient to take antibiotic as prescribed, take with food, complete entire course of therapy even if feeling better. Allergies and recent antibiotic use were reviewed with patient. Advised patient culture was sent today and we will call with her results in 2-5 days. Patient instructed to push fluids. May take Pyridium for discomfort as prescribed. Patient symptoms should improve in the next 48 hours, if symptoms persist follow up with PCP or UC. Immediate eval by ER if back or flank pain, fever, chills, N/V, or any other concerning symptoms arise. Patient verbalizes understanding and is agreeable to treatment plan. [employer] Other Evaluation note Note Date & Type Note Facility Evaluation note No assessment information availa [facility] Work Phone: Evaluation note Note Date & Type Note Facility Evaluation note No Information [facility] [employer] Other Evaluation note Note Date & Type Note Facility Evaluation note Diagnosis Miscarriage Unspecified spontaneous without mention of complication documented in this encounter [facility] Advance Directives No Advanced Directives Records Found Advance Directive Response Recorded Date/ Time Advance Directives No November 04, 2020 9:01pm Summary Purpose Family History No Family History Records FoundNo Family History Records FoundNo Family History Records Found Additional Source Comments REASON FOR VISIT (unrecogniz ed section and content) Reason Comments Miscarriage Care Teams (unrecognized sec tion and content) Team Status: Active Member Role Status Dates Hamilton Motta MD Primary Care Provider Active Team Status: Inactive Member Role Status Dates Hamilton Motta MD Primary Care Provider Active Natasha Ventura APRN Attending Provider Active A&P Technician Relationship Specialty Start Date End Date Hamilton Motta MD [address] [place] [address] PCP - General Family Medicine 06/28/24 Team Status: Inactive Member Role Status Dates Sarah Choi DO Attending Provider Active Start: July 26, 2024 End: July 26, 2024 A&P Technician Relationship Specialty Start Date End Date Hamilton Motta MD [address] [place] [id number] PCP - General Family Medicine 06/28/24 Goals (unrecognized section and content) Goals may be documented in a n alternate section INFORMATION SOURCE (unrecogn ized section and content) DATE CREATED AUTHOR 02/25/2023 [facility] pital DATE CREATED AUTHOR AUTHOR'S ORGANIZ ATION 07/31/[address] [facility] DATE CREATED AUTHOR AUTHOR'S ORGANIZ ATION 08/02/2024 [facility] d[facility] Specialists EPIC FOR RECORDS PERTAINING TO PATIENTS WHO ARE OR HAVE BEEN ENROLLED IN A CHEMICAL DEPENDENCY/SUBSTANCEABUSE PROGRAM, SOME INFORMATION MAY BE OMITTED. This clinical summary was aggregated from multiple sources. Caution should be exercised in using it in the provision of clinical care. This summary normalizes information from multiple sources, and as a consequence, information in this document may materially change the coding, format and clinical context of patient data. In addition, data may be omitted in some cases. CLINICAL DECISIONS SHOULD BE BASED ON THE PRIMARY CLINICAL RECORDS. [employer] [facility]. provides no warranty or guarantee of the accuracy or completeness of information in this document.
== END 2024-08-02 14:34 | disposition home or self-care (01) ==
LOC: NOMS 14:34
PROVIDERS: PCP Family Medicine; Visit Provider Physician Assistant
DX: O03.9 Complete or unspecified spontaneous abortion without complication (principal)
CPT/HCPCS: 76830

== ENCOUNTER 2024-08-22 08:16 | Outpatient (OUT) | payer BC, SELFPAY ==
[2024-08-22 11:22] LABS: HCG Quantitative 9 mIU/mL
== END 2024-08-22 08:17 | disposition home or self-care (01) ==
LOC: LAB 08:18
PROVIDERS: PCP Family Medicine; Visit Provider Physician Assistant
DX: O36.80X0 Pregnancy with inconclusive fetal viability, not applicable or unspecified (principal)
CPT/HCPCS: 36415; 84702

== ENCOUNTER 2025-05-14 14:48 | Outpatient (RCR) | payer BC, SELFPAY | END 2025-05-17 17:06 | disposition home or self-care (01) | LOC: LAB 14:48 | PROVIDERS: PCP Family Medicine; Visit Provider Obstetrics & Gynecology | DX: Z51.81 Encounter for therapeutic drug level monitoring (principal); Z32.01 Encounter for pregnancy test, result positive | CPT/HCPCS: 36415; 84702 ==

== ENCOUNTER 2025-06-27 16:18 | Outpatient (OUT) | payer BC, SELFPAY ==
--- OUTSIDE RECORDS SUMMARY | 2025-06-27 16:25 | XMS_ITS | Encounter Summary ---
Author Organization [facility] Address [address] [place] [address] Care Team Providers Care Clinical Studies Specialist Name Role Phone Hamilton Monaco MD Primary Care Provider Hamilton Monaco MD Primary Care Provider Hamilton Monaco MD Unavailable Miguel Olivera DO Unavailable [phone] Hamilton Monaco MD Unavailable Encounter Details Date Type Department Care Team (Late st Contact Info) Description 08/02/2024 Abstract [facility] [address] [place] [id number] Dimas Joya DO [address] [place] [address] Social History Tobacco Use Types Packs/Day Years Used Date Smoking Tobacco: Never Smokeless Tobacco: Never Alcohol Use Standard Drinks/Week Comments Never 0 (1 standard drink = 0.6 oz pur e alcohol) Comments No Sex and Gender Information Value Date Recorded Sex Assigned at Not on file Legal Sex Female 6:17 PM EDT Gender Identity Not on file Sexual Orientation Not on file documented as of this encounter Plan of Treatment Upcoming Encounters Date Type Department Care Team (Late st Contact Info) Description 07/02/2025 2:20 PM EDT Routine [facility] [address] [place] [phone] Dimas Joya DO [address] [facility] [place] [address] documented as of this encounter Visit Diagnoses Not on filedocumented in this encounter Care Teams Clinical Studies Specialist Relationship Specialty Start Date End Date Hamilton Monaco MD PCP - General Family Medicine 06/28/24 10/18/24 Hamilton Monaco MD PCP - General Family Medicine 10/19/24 Miguel Olivera DO [address] [facility] [address] [place] [address] PCP - [place] [employer] 06/18/2309/16 Hamilton Monaco MD [address] [place] [address] PCP - [employer] 09/17/24 Hamilton Monaco MD Family Medicine 10/19/24 documented as of this encounter
--- OUTSIDE RECORDS SUMMARY | 2025-06-27 16:25 | XMS_ITS | Encounter Summary ---
Author Organization [facility] Address [address] [place] [address] Care Team Providers Care Sand Bobber Name Role Phone Hamilton Monaco MD Primary Care Provider [phone] Hamilton Monaco MD Primary Care Provider [phone] Hamilton Monaco MD Unavailable Miguel Olivera DO Unavailable [phone] Hamilton Monaco MD Unavailable Encounter Details Date Type Department Care Team (Late st Contact Info) Description 08/04/2024 Clinisync Result Encounter [facility] External Department Unsolicited Provider, Generic External Data Social History Tobacco Use Types Packs/Day Years [...] Info) Description 07/02/2025 2:20 PM EDT Routine [facility] [address] [address] Dimas Joya DO [address] [place], [place] [id number] documented as of this encounter Procedures Procedure Name Priority Date/Time Associated Diagnosis Comments US PELVIS TRANSVAGINAL 08/04/2024 7:21 AM EDT documented in this encounter Results * US PELVIS TRANSVAGINAL (08/04/2024 7:21 AM EDT) Anatomical Region Laterality Modality Other 08/04/2024 7:21 AM EDT Narrative 08/04/2024 7:23 [place] [address] Ultrasound Report Signed Patient: NATASHA SANCHEZ MR#: [id number] : 2000 Acct:[id number] Age/Sex: 23 / F ADM Date: 08/02/24 Loc: [facility] Attending Dr: Aide Isabel Ordering Physician: Aide Isabel Date of Service: 08/02/24 Procedure(s): US pelvis transvaginal Accession Number(s): [id number] cc: Aide Isabel; Hamilton Monaco M.D. The [address] [address] Patient Name: NATASHA SANCHEZ MRN: [id number] date: 2000 Sex: F Assigned Patient Location: [facility] Current Patient Location: Accession/Order Number: [id number] Exam Date: 08/02/2024 14:36 Report Date: 08/04/2024 07:21 At the request of: AIDE ISABEL Procedure: US pelvis transvaginal EXAMINATION: US pelvis transvaginal HISTORY: POST MISCARRIAGE COMPARISON: No relevant comparison available. FINDINGS: The uterus is prominent in size measuring 11.1 x 4.7 x 7.0 cm. No focal myometrial mass. The uterus is anteverted, anteflexed. The endometrium measures 5 mm, normal. Noted in the cervix is a 9.4 x 3.3 x 6.6 mm area of soft tissue echotexture, indeterminate The right ovary is normal measuring 2.5 x 1.8 x 3.3 cm. Normal color and Doppler flow The left ovary is normal measuring 3.5 x 0.7 x 1.8 cm. Normal color and Doppler flow No free fluid US/US pelvis transvaginal IMPRESSION: 9.4 mm soft tissue lesion in the cervix without color flow, nonspecific Electronically authenticated by: SAKINA HERNANDEZ Date: 08/04/2024 07:21 Dictated By: Sakina Hernandez M.D. Signed By: 08/04/2423 DD/ 0 TD/TT: Vice President Financial: Procedure Note Radiology, Radiologist, MD - 08/04/2024 [place] [address] Ultrasound Report Signed Patient: NATASHA SANCHEZ RMR#: [id number] : 2000Acct:[id number] Age/Sex: 23 / FADM Date: 08/02/24 Loc: [facility] Attending Dr: Aide Isabel Ordering Physician: Aide Isabel Date of Service: 08/02/24 Procedure(s): US pelvis transvaginal Accession Number(s): [id number] cc: Aide Isabel; Hamilton Monaco M.D. The [place] [id number] Patient Name: NATASHA SANCHEZ MRN: [id number] date: 2000 Sex: F Assigned Patient Location: [facility] Current Patient Location: Accession/Order Number: [id number] Exam Date: 08/02/2024 14:36 Report Date: 08/04/2024 07:21 At the request of: AIDE ISABEL Procedure: US pelvis transvaginal EXAMINATION: US pelvis transvaginal HISTORY: POST MISCARRIAGE COMPARISON: No relevant comparison available. FINDINGS: The uterus is prominent in size measuring 11.1 x 4.7 x 7.0 cm. No focal myometrial mass. The uterus is anteverted, anteflexed. The endometrium measures 5 mm, normal. Noted in the cervix is a 9.4 x 3.3x 6.6 mm area of soft tissue echotexture, indeterminate The right ovary is normal measuring 2.5 x 1.8 x 3.3 cm. Normal color and Doppler flow The left ovary is normal measuring 3.5 x 0.7 x 1.8 cm. Normal color and Doppler flow No free fluid US/US pelvis transvaginal IMPRESSION: 9.4 mm soft tissue lesion in the cervix without color flow, nonspecific Electronically authenticated by: SAKINA HERNANDEZ Date: 08/04/2024 07:21 Dictated By: Sakina Hernandez M.D. Signed By:08/04/24722 DD/ 0 TD/TT: Vice President Financial: us Generic External Data Provider [facility] Final Result documented in this encounter Visit Diagnoses Not on filedocumented in this encounter Care Teams Sand Bobber Relationship Specialty Start Date End Date Hamilton Monaco MD PCP - General Family Medicine 06/28/24 10/18/24 Hamilton Monaco MD PCP - General Family Medicine 10/19/24 Miguel Olivera DO [address] [place] [address] PCP - [place] [employer] 06/18/2309/16 Hamilton Monaco MD [address] [place] [address] PCP - [place] [employer] 09/17/24 Hamilton Monaco MD Family Medicine 10/19/24 documented as of this encounter
--- OUTSIDE RECORDS SUMMARY | 2025-06-27 16:25 | XMS_ITS | Clinical Summary ---
Author Organization [facility] Healthcare Address [address] [place] [address] Care Team Providers Care Finishing Range Feeder Name Role Phone Hamilton Monaco MD Primary Care Provider [phone] Hamiltno Monaco MD Unavailable Allergies No known active allergies Medications Zafemy 150-35 MCG/24HR 09/28/20 24 Active cephalexin (Keflex) 500 MG capsule Take 500 mg by mouth every 8 (eight) hours 07/24/20 24 025 Discontinu ed(Therapy completed) Progesterone 200 MG suppositoryIndi cations:History of miscarriage Insert 200 mg into the vagina at bedtime Insert suppository vaginally every night at bedtime until 12 weeks gestation 30 suppository 3 05/14/20 25 025 cefuroxime (Ceftin) 250 MG tabletIndicatio ns:Acute bronchitis, unspecified organism 1 po bid until all taken. 14 tablet 10/19/19 25 025 Discontinu ed(Therapy completed) Active Problems Problem Noted Date Diagnosed Date H/O one miscarriage 08/02/2024 Miscarriage ([facility] 07/31/2024 Assessment & Plan (07/31/2024 3:13 PM EDT): Recent miscarriage and labs improving. Follow with OB. Feels like handling well and monitor for depression. Encounter for female family planning counseling 07/31/2024 Assessment & Plan (07/31/2024 3:13 PM EDT): Start patches. Estimated Date of Delivery Comme nts Yes 01/20/2026 Based on Ultraso und Encounters Date Type Department Care Team Description 05/31/2025 2:00 PM EDT [place] [address] GA: [id number] 05/31/2025 1:30 PM EDT Ancillary Procedure [facility] [place] [facility] [address] [place] [address] Missed menses; Positive urine test ([facility]) 05/16/2025 Clinisync Result Encounter [facility] External Department Unsolicited Provider, Generic External Data 05/15/2025 Telephone [facility] [place] [facility] [address] [place] [address] Dimas Joya DO 05/14/2025 Clinisync Result Encounter [facility] External Department Unsolicited Dimas Joya DO 05/14/2025 Telephone [facility] [place] [facility] [address] [place] [address] [place] [address] Dimas Joya DO from Last 3 Months Social History Tobacco Use Types Packs/Day Years Used Date Smoking Tobacco: Never Smokeless Tobacco: Never Tobacco Cessation:Counseling Given: Not Answered Alcohol Use Standard Drinks/Week Comments Never 0 (1 standard drink = 0.6 oz pur e alcohol) Estimated Date of Delivery Comme nts Yes 01/20/2026 Based on Ultraso und Sex and Gender Information Value Date Recorded Sex Assigned at Not on file Legal Sex Female 6:17 PM EDT Gender Identity Not on file Sexual Orientation Not on file Last Filed Vital Signs Vital Sign Reading Time Taken Comments Blood Pressure 110/70 05/31/2025 2:46 PM EDT Pulse 86 01/29/2025 6:29 PM EDT Temperature 36.7 C (98 F) 01/29/2025 6:29 PM EDT Respiratory Rate 20 07/31/2024 2:17 PM EDT Oxygen Saturation 99% 01/29/2025 6:29 PM EDT Inhaled Oxygen Concentration - - Weight 61.7 kg (136 lb) 05/31/2025 2:46 PM EDT Height 154.9 cm (5' 1 ) 07/31/2024 2:17 PM EDT Body Mass Index 25.7 07/31/2024 2:17 PM EDT Plan of Treatment Upcoming Encounters Date Type Department Care Team (Late st Contact Info) Description 07/02/2025 2:20 PM EDT Routine [facility] [address] [place] [address] ToanDimas sue DO [address] [facility] [place] [address] Health Maintenance Due Date Last Done Comments Influenza Vaccine (#1) 2025 Procedures Procedure Name Priority Date/Time Associated Diagnosis Comments POCT URINALYSIS DIPSTICK Routine 05/31/2025 2:46 PM EDT Missed menses Amenorrhea POCT , URINE Routine 05/31/2025 2:46 PM EDT Missed menses Amenorrhea OB TRANSVAGINAL Routine 05/31/2025 2: 02 PM EDT Missed menses Positive urine test ([facility]) [facility] PREG QUANT HCG Routine 05/16/2025 7: 12 AM EDT [facility] PREG QUANT HCG Routine 05/14/2025 3: 10 PM EDT from Last 3 Months Results * (ABNORMAL) POCT , urine manually resulted (05/31/2025 2:46 PM EDT) Preg Test, Ur Positive Negative Urine 05/31/2025 2:46 PM EDT us Dimas Joya DO POINT OF CARE TEST ENTER/EDIT OR DERABLES Final Result * (ABNORMAL) POCT urinalysis dipstick manually resulted (05/31/2025 2:46 PM EDT) Color, UA Yellow Clarity, UA Clear Glucose, UA Negative Negative - 2000(110) ++++ mg/dL Bilirubin, UA Negative Negative - 4(70) +++ mg/dL Ketones, UA Positive Negative - 160(16) ++++ mg/dL Spec Grav, UA 1.020 1 - 1.03 Blood, UA Negative Negative - 50 Murray/mcL pH, UA 6.0 5 - 9 Protein, UA Negative Negative - 2000(20) ++++ mg/dL Urobilinogen, UA 1.0 0.2 - 12 mg/dL Leukocytes, UA Negative Negative - 500+++ Bharat/mcL Nitrite, UA Negative Negative - Positive Urine 05/31/2025 2:46 PM EDT us Dimas Joya DO POINT OF CARE TEST ENTER/EDIT OR DERABLES Final Result * US OB transvaginal (05/31/2025 2:02 PM EDT) Anatomical Region Laterality Modality Body Ultrasound 06/04/2025 2:13 PM EDT Impressions 06/05/2025 8:34 AM EDT 1. Findings consistent with a live intrauterine gestation, current sonographic age of 6 weeks and 4 days resulting in an estimated date of delivery of January 20, 2026. 2. Probable intramural, fundal fibroid. TRANSCRIBED BY: ELECTRONICALLY SIGNED BY: Stephon Somers MD Narrative 06/05/2025 8:34 AM EDT FINDINGS: A single intrauterine gestational sac is present. No subchorionic hemorrhage. A single pole is present. Normal heart rate at 123 beats per minute. Yolk sac also is seen. Current sonographic age is 6 weeks and 4 days based on the crown-rump length measurement of 7mm. Based on this age, current estimated date of delivery is January 20, 2026. No pelvic fluid or adnexal mass present. Cervical length is 3.9cm. Hypoechogenic area posterior fundus 1.6 x 3.3 x 2.8 cm, probable intramural fibroid. Right ovarian hypoechogenic 1.5 x 2.2 cm structure, probable complex cyst. No pelvic fluid. Procedure Note Stephon Somers MD - 06/05/2025 FINDINGS: A single intrauterine gestational sac is present. No subchorionichemorrhage. A single pole is present. Normal heart rate at123 beats per minute. Yolk sac also is seen. Current sonographic age is6 weeks and 4 days based on the crown-rump length measurement of 7mm.Based on this age, current estimated date of delivery is January 20, 2026.No pelvic fluid or adnexal mass present. Cervical length is 3.9cm. Hypoechogenic area posterior fundus 1.6 x 3.3 x 2.8 cm, probableintramural fibroid. Right ovarian hypoechogenic 1.5 x 2.2 cm structure,probable complex cyst. No pelvic fluid. IMPRESSION: 1. Findings consistent with a live intrauterine gestation, currentsonographic age of 6 weeks and 4 days resulting in an estimated date ofdelivery of January 20, 2026. 2. Probable intramural, fundal fibroid. TRANSCRIBED BY: ELECTRONICALLY SIGNED BY: Stephon Somers MD us Dimas Toan DO IMG OB US PROCEDURES Final Resul t * [facility] PREG QUANT HCG (05/16/2025 7:12 AM EDT) Only the most recent of2 resultswithin the time period is included. HCG QUANTITATIVE 917 mIU/mL [facility] Comment: 5-50 0.2-1 WEEK 50-500 1-2 WEEKS 100-5,000 2-3 WEEKS 500-10,000 3-4 WEEKS 1,000-50,000 4-5 WEEKS 10,000-100,000 5-6 WEEKS 15,000-200,000 6-8 WEEKS 10,000-100,000 2-3 MONTHS 05/16/2025 7:12 AM EDT 05/16/2025 7:12 AM EDT Narrative [facility] - 05/16/2025 7:48 AM EDT us Dimas Toan DO [facility] Final Result [facility] from Last 3 Months Insurance [employer] Care Teams Finishing Range Feeder Relationship Specialty Start Date End Date Hamilton Monaco MD PCP - General Family Medicine 10/19/24 Hamilton Monaco MD Family Medicine 10/19/24
--- OUTSIDE RECORDS SUMMARY | 2025-06-27 16:25 | XMS_ITS | Encounter Summary ---
Author Organization [facility] Address [address] [place] [address] Care Team Providers Care Senior Applications Architect Name Role Phone Hamilton Monaco MD Primary Care Provider Hamilton Monaco MD Primary Care Provider Hamilton Monaco MD Unavailable Miguel Olivera DO Unavailable [phone] Hamilton Monaco MD Unavailable Encounter Details Date Type Department Care Team (Late st Contact Info) Description 07/26/2024 Orders Only [facility] [address] [place] [address] Hamilton Monaco MD [address] [place] [id number] Social History Tobacco Use Types Packs/Day Years [...] 07/02/2025 2:20 PM EDT Routine [facility] [place] [facility] [address] [place] [address] Dimas Joya, [address] [facility] [place] [address] documented as of this encounter Procedures Procedure Name Priority Date/Time Associated Diagnosis Comments US OB TRANSVAGINAL Routine 07/24/2024 10:27 AM EDT documented in this encounter Results * US OB transvaginal (07/24/2024 10:27 AM EDT) Anatomical Region Laterality Modality Body Ultrasound us Hamilton Monaco MD IMG OB US PROCEDURES Final Resul t documented in this encounter Visit Diagnoses Not on filedocumented in this encounter Care Teams Senior Applications Architect Relationship Specialty Start Date End Date Hamilton Monaco MD PCP - General Family Medicine 06/28/24 10/18/24 Hamilton Monaco MD PCP - General Family Medicine 10/19/24 Miguel Olivera DO [address] [facility] [address] [place] [address] PCP - [place] [employer] 06/18/2309/16 Hamilton Monaco MD [address] [place] [address] PCP - [place] [employer] 09/17/24 Hamilton Monaco MD Family Medicine 10/19/24 documented as of this encounter
[2025-06-27 17:04] LABS: Hematocrit 36.9 % (36.0-48.0); Hemoglobin 12.7 g/dL (12.0-16.0); Immature Granulocytes Abs Auto 0.00 10^3/uL (0.00-0.03); Immature Granulocytes Pct Auto 0.0 % (0.0-0.5); Lymphocytes Absolute Auto 1.4 10^3/uL (1.2-3.8); Mean Corpuscular HGB Conc 34.4 g/dL (29.9-35.2); Mean Corpuscular Hemoglobin 31.4 pg (26.7-34.0); Mean Corpuscular Volume 91.1 fL (81.0-99.0); Platelet Count 237 10^3/uL (150-450); Red Blood Count 4.05 10^6/uL (4.20-5.40); White Blood Count 5.8 10^3/uL (4.0-11.0)
--- OUTSIDE RECORDS SUMMARY | 2025-06-27 17:25 | XMS_ITS | CCD ---
Author Organization [facility] Care Team Providers Care [place] Name Role Phone Natasha Ventura Unavailable MD Hamilton Motta Primary Care Provider [phone] ANASTACIO Ventura Attending Provider [phone] PAY ., DR DURAND Admitting Unavailable PAY ., DR DURAND Consulting Unavailable PAY ., DR DURAND Attending Unavailable ÁNGELA, DR HAMILTON Nicholson Primary Care Unavailable KAYCE ., CED Consulting Unavailable Hamilton Motta MD Primary Care Provider [phone] DO Sarah Choi Attending Provider Sarah Choi Attending Unavailable Sarah hCoi Admitting Unavailable Hamilton Motta MD Primary Care Provider [phone] Hamilton Motta MD Unavailable Miguel Olivera DO Unavailable [phone] Hamilton Motta MD Unavailable ELIZABETH STROUD Attending Unavailable AIDE ISABEL Attending Unavailable HAMILTON MOTTA Attending Unavailable RYAN TRUONG Attending Unavailable Medications Current Medications Medication Drug Class(es) Dates Sig (Normalized) Sig (Original) azithromycin 250 mg oral tablet (3 sources) Macrolide Antimicrobial Start: 09-29-2023 End: 07-26-2024 azithromycin (Zithromax Z-Dayton) 250 MG tablet Indications: Dysuria Take 2 tablets (500 mg) on Day 1, followed by 1 tablet (250 mg) once daily on Days 2 through 5. 6 tablet 09/29/2023 07/26/2024 Discontinued Ethinyl Estradiol / norgestimate (5 sources) Progestin, [...] 02/22/2024 02/21/2025 Active take 1 tablet by [facility] once daily Tri-Linyah 0.18/0.215/0.25 MG-35 MCG TAKE 1 TABLET BY MOUTH DAILY Oral for 28 Days Active methylPREDNISolone (2 sources) Corticosteroid Start: 01-29-2025 End: 02-05-2025 methylPREDNISolone (Medrol Dospak) 4 MG tablets Indications: Posterior left knee pain , Tendinitis of left knee Follow schedule on package instructions 21 tablet 01/29/2025 02/05/2025 Active nitrofurantoin, macrocrystals 25 mg / nitrofurantoin, monohydrate 75 mg oral capsule (3 sources) Nitrofuran Antibacterial Start: 02-14-2023 take 1 capsule by mouth every twelve hours Macrobid 100 MG 1 capsule with food Orally every 12 hrs for 5 days February, Active Progesterone 200 MG suppository (3 sources) Start: 05-14-2025 End: 06-13-2025 Progesterone 200 MG suppository Indications: History of miscarriage Insert 200 mg into the vagina at bedtime Insert suppository vaginally every night at bedtime until 12 weeks gestation 30 suppository 3 05/14/2025 06/13/2025 Active Zafemy 150-35 MCG/24HR (7 sources) Start: 09-28-2024 Zafemy 150-35 MCG/24HR 09/28/2024 Active Start: 09-28-2024 Zafemy 150-35 MCG/24HR APPLY 1 patch EVERY WEEK FOR 3 WEEKS, then remove for 1 WEEK 09/28/2024 Active Completed/Discontinued Medications Medication Drug Class(es) Dates Sig (Normalized) Sig (Original) cefuroxime 250 mg oral tablet (7 sources) Cephalosporin Antibacterial Start: 10-19-2024 End: 05-31-2025 take 1 tablet by mouth twice daily cefuroxime (Ceftin) 250 MG tablet Indications: Acute bronchitis, unspecified organism 1 po bid until all taken. 14 tablet 10/19/2024 05/31/2025 Discontinued (Therapy completed) cephalexin 500 mg oral capsule (11 sources) Cephalosporin Antibacterial Start: 07-24-2024 End: 05-31-2025 take 1 capsule by mouth every eight hours cephalexin (Keflex) 500 MG capsule Take 500 mg by mouth every 8 (eight) hours 07/24/2024 05/31/2025 Discontinued (Therapy completed) 168 hr ethinyl estradiol 0.30627 mg/hr / norelgestromin 0.12688 mg/hr transdermal system (8 sources) Progestin, Estrogen Start: 07-31-2024 End: 07-31-2025 apply 1 dose transdermal route every week norelgestromin-et hinyl estradiol (Xulane) 150-35 MCG/24HR Indications: Encounter for female family planning counseling Apply 1 patch each week for 3 weeks, then remove for 1 week. 3 patch 12 07/31/2024 05/23/2025 Discontinued (Therapy completed) Problems Active Problems Problem Classification Problem Date Documented Date Episodic/Chronic Acute bronchitis (2 sources) Acute bronchitis; Translations: [Acute bronchitis, unspecified] 10-19-2024 Episodic Genitourinary symptoms and ill-defined conditions (8 sources) Dysuria; Translations: [Dysuria] Onset: 02-19-2023 Episodic Menstrual disorders (2 sources) Missed period; Translations: [Irregular menstruation, unspecified] 05-23-2025 Chronic Other connective tissue disease (2 sources) Tendinitis of left knee; Translations: [Other specified enthesopathies of left lower limb, excluding foot] 01-29-2025 Episodic Other nervous system disorders (2 sources) Chronic pain; Translations: [Other chronic pain] Chronic Other non-traumatic joint disorders (2 sources) Pain in left knee; Translations: [Pain in joint, lower leg] 01-29-2025 Episodic Other and delivery including normal (3 sources) Urine test positive; Translations: [Encounter for test, result positive] 05-23-2025 Episodic Residual codes; unclassified (1 source) Gestation period, 6 weeks; Translations: [Less than 8 weeks gestation of ] 05-31-2025 Episodic Urinary tract infections (1 source) Acute cystitis with hematuria Episodic Past or Other Problems Problem Classification Problem Date Documented Date Episodic/Chronic Contraceptive and procreative management (12 sources) Patient encounter status; Translations: [Encounter for other general counseling and advice on contraception] Onset: 07-31-2024 07-31-2024 Episodic Residual codes; unclassified (1 source) H/O: miscarriage; Translations: [Personal history of other complications of , childbirth and the puerperium] Onset: 08-02-2024 05-23-2025 Episodic Spontaneous (14 sources) Miscarriage; Translations: [Complete or unspecified spontaneous without complication] Onset: 07-31-2024 07-26-2024 Episodic Results Test Name Value Interpretation Reference Range Facility HCG ( test) Ql (U)o n 05-31-2025 Interpretation and review of laboratory results Abnormal [facility] Healthcare Preg Test, Ur Positive Negative [facility] TRANSV[facility]AL[facility] 025 US OB TRANSVAGINAL FINDINGS: A single intrauterine gestational sac is [...] structure, probable complex cyst. No pelvic fluid. IMPRESSION: 1. Findings consistent with a live intrauterine gestation, current sonographic age of 6 weeks and 4 days resulting in an estimated date of delivery of January 20, 2026. 2. Probable intramural, fundal fibroid. TRANSCRIBED BY: ELECTRONICALLY SIGNED BY: Stephon Somers MD Normal Not Available Comment on above: Order Comment: US OB TRANSVAGINAL No LMP recorded. Urinalysis macro (dipstick) panel (U)on 05-31-2025 Bilirubin, UA Negative Negative - 4(70) +++ mg/dL [facility] Blood, UA Negative Negative - 50 Murray/mcL [facility] Clarity, UA Clear Merged with [facility] re Color, UA Yellow [facility] Healthcar e Glucose, UA Negative Negative - 1999(110) ++++ mg/dL [facility] Interpretation and review of laboratory results Abnormal [facility] Ketones, UA Positive Negative - 160(16) ++++ mg/dL [facility] Leukocytes, UA Negative Negative - 500+++ Bharat/mcL [facility] Nitrite, UA Negative Negative - Positive [facility] pH, UA 6 5 - 9 [facility] e Protein, UA Negative Negative - 1999(20) ++++ mg/dL [facility] Spec Grav, UA 1.02 1 - 1.03 [facility] Urobilinogen, UA 1.0 0.2 - 12 mg/dL [facility] PREG QUANT HCGon 05-16- 025 HCG QUANTITATIVE 917 mIU/mL [facility] Comment on above: 5-50 0.2-1 WEEK 50-500 1-2 WEEKS 100-5,000 2-3 WEEKS 500-10,000 3-4 WEEKS 1,000-50,000 4-5 WEEKS 10,000-100,000 5-6 WEEKS 15,000-200,000 6-8 WEEKS 10,000-100,000 2-3 MONTHS [facility] e H PREG QUANT HCGon 05-14- 025 HCG QUANTITATIVE 507 mIU/mL [facility] Comment on above: 5-50 0.2-1 WEEK 50-500 1-2 WEEKS 100-5,000 2-3 WEEKS 500-10,000 3-4 WEEKS 1,000-50,000 4-5 WEEKS 10,000-100,000 5-6 WEEKS 15,000-200,000 6-8 WEEKS 10,000-100,000 2-3 MONTHS [facility] PREG QUANT HCGon 024 HCG QUANTITATIVE 9 mIU/mL [facility] Comment on above: 5-50 0.2-1 WEEK 50-500 1-2 WEEKS 100-5,000 2-3 WEEKS 500-10,000 3-4 WEEKS 1,000-50,000 4-5 WEEKS 10,000-100,000 5-6 WEEKS 15,000-200,000 6-8 WEEKS 10,000-100,000 2-3 MONTHS [facility] TBH PREG QUANT HCGon 024 HCG QUANTITATIVE 176 mIU/mL [facility] Comment on above: 5-50 0.2-1 WEEK 50-500 1-2 WEEKS 100-5,000 2-3 WEEKS 500-10,000 3-4 WEEKS 1,000-50,000 4-5 WEEKS 10,000-100,000 5-6 WEEKS 15,000-200,000 6-8 WEEKS 10,000-100,000 2-3 MONTHS [facility] Arnoldo 07-26-2024 L Specimen: [id number] Received: 07/26/24 Status: MORGAN Londono Num: [id number] Spec Type: Surgical Subm Dr: Sarah Choi DO Tissues: A Products of Conception - Spontaneous or Missed (POD) Procedures: HE/6, Gross/Micro L4 Age/ Patient Sex Location Account Attending Physician GriffinNatasha Rizzo 23/F LABELL [id number] Sarah Choi DO SPEC NUM: [id number] RECD: 07/26/24 STATUS: MORGAN LONDONO NUM: [id number] KIMBERLYN: 07/26/24- SUBM DR: Sarah Choi DO ENTERED: 07/26/24-[address]: [place],Lab SPEC TYPE: Surgical DEPT: HOA MCKEON ENTERED BY: [id number] RECV BY: [id number] ORDERED: HE/6, Gross/Micro L4 ORDERED: HE/6, Gross/Micro L4 Pathological Diagnosis Tissue labeled as [...] 0.5 cm Outer canthus 1.0 cm Specimen: [id number] Received: 07/26/24 Status: MORGAN Londono Num: [id number] Spec Type: Surgical Subm Dr: Sarah Lynch Marker DO Tissues: A Products of Conception - Spontaneous or Missed (POD) Procedures: /, Gross/Micro L4 Patient: Natasha Moya [id number] (Continued) Specimen: [id number] Received: 07/26/24 (Continued) Gross Description (Continued) Signed (signatur e on file) Kerline Stevens MD 07/29/24 1152 Specimen: [id number] Received: 07/26/24 Status: MORGAN Londono Num: [id number] Spec Type: Surgical Subm Dr: Sarah Choi DO Tissues: A Products of Conception - Spontaneous or Missed (POD) Procedures: /, Gross/Micro L4 Patient: Natasha Moya [id number] (Continued) Specimen: [id number] Received: 07/26/24 (Continued) Gross Description (Continued) Head circumference 4.1 cm Chest circumference 3.7 cm Abdomen circumference 4.0 cm Attached umbilical cord 3.5 cm in length with a diameter of 0.2 cm Right hand 0.3 cm Left hand 0.4 cm Right foot 0.4 cm Left foot 0.3 cm Julian to rump 5.5 cm Julian to heel 6.5 cm Received in the same container is a 65 g 11.0 x 8.0 x 1.5 cm ovoid placenta. The surface is pink-wade with underdeveloped vascular structures. The umbilical cord and insertion point is not identified. The membranes are wade-brown, thickened and inserted at the margin. The maternal surface is wade-pink with underdeveloped,varun ledons. Grooving Lathe Tender sections are as follows: A1 membranes A2-A5 full-thickness sections A6 hemorrhagic region DM Microscopic Description Microscopic examinations are performed supporting the above interpretation [facility] Codes [id number] Specimen: [id number] Received: 07/26/24 Status: MORGAN Londono Num: [id number] Spec Type: Surgical Subm Dr: Sarah Choi DO Tissues: A Products of Conception - Spontaneous or Missed (POD) Procedures: AFSANEH/Ofelia Gross/Micro L4 Patient: MoyaNatasha [id number] (Continued) Signed (signatur e on file) SalvatoreKamiBenson C (more content not included)... Normal [facility] Physician [facility] URINE CULTURE, ROUTINEon Bacteria identified Cx Nom (U) Urine Culture, Routine [facility] Bacteria identified Cx Nom (U) Mixed urogenital ivania [facility] Bacteria identified Cx Nom (U) 50,000-100,000 colony forming units per mL [facility] Bacteria identified Cx Nom (U) Performed at: [facility] Bacteria identified Cx Nom (U) [address] [place] [address] [id number] [facility] Bacteria identified Cx Nom (U) Membership Counselor: Junaid Bullard PhD, Phone: [phone] [facility] URINE PROFILEon 3 Bilirubin Ql (U) Negative Normal NEGATIVE [facility] Comment on above: Performed By: #### E YARELY UMICRO #### [facility] [address] [place] [address] Dr. Honorio Stevens Clarity (U) CLEAR Normal CLEAR [facility] Comment on above: Performed By: #### E RUSo, UMICRO #### [facility] [address] [place] [address] Dr. Honorio Stevens Color (U) DK. YELLOW Normal YELLOW [facility] Comment on above: Performed By: #### E RUR, UMICRO #### [facility] [address] [place] [address] Dr. Honorio Stevens ERUAHD A micrscopic examination will be performed if indicated. Normal [facility] Comment on above: Performed By: #### E RUR, UMICRO #### [facility] [address] [place] [address] Dr. Honorio Stevens Glucose Ql (U) Negative Normal NEGATIVE [facility] Comment on above: Performed By: #### E RUR, UMICRO #### [facility] [address] [place] [address] Dr. Honorio Stevens Hemoglobin Ql (U) SMALL Abnormal NEGATIVE [facility] Comment on above: Performed By: #### JADIEL BLANCORO #### [facility] [address] [place] [address] Dr. Honorio Stevens Ketones Ql (U) Negative Normal NEGATIVE [facility] Comment on above: Performed By: #### JADIEL BLANCORO #### [facility] [address] [place] [address] Dr. Honorio Stevens LEUKOCYTES Negative Normal NEGATIVE [facility] Comment on above: Performed By: #### JADIEL BLANCORO #### [facility] [address] [place] [address] Dr. Honorio Stevens Nitrite Ql (U) Negative Normal NEGATIVE [facility] Comment on above: Performed By: #### GILL BLANCO #### [facility] [address] [place] [address] Dr. Honorio Stevens pH (U) 6.5 [pH] Normal 5-9 [facility] Comment on above: Performed By: #### GILL BLANCO #### [facility] [address] [place] [address] Dr. Honorio Stevens SPEC GRAVITY 1.020 Normal 1.005-<=1.025 [facility] Comment on above: Performed By: #### JADIEL BLANCORO #### [facility] [address] [place] [address] Dr. Honorio Stevens UA PROTEIN Negative Normal NEGATIVE/ TRACE [facility] Comment on above: Performed By: #### JADIEL BLANCORO #### [facility] [address] [place] [address] Dr. Honorio Stevens UR MICRO IND INDICATED Normal [facility] Comment on above: Performed By: #### GILL BLANCO #### [facility] [address] [place] [address] Dr. Honorio Stevens Urobilinogen Qn (U) 0.2 {Jamaal'U}/dL Normal 0.2 - 1. 0 [facility] Comment on above: Performed By: #### E RUR UMICRO #### [facility] [address] [place] [address] Dr. Honorio Stevens URon 02-19-2023 , QUAL Negative Normal NEGATIVE [facility] Comment on above: Performed By: #### P REGU #### [facility] [address] [place] [address] Dr. Honorio Stevens URINE MICROSCOPIC ONLYon BACTERIA NONE SEEN Normal NONE SEEN [facility] Comment on above: Performed By: #### E RUR, UMICRO #### [facility] [address] [place] [address] Dr. Honorio Stevens Bacteria identified Cx Nom (U) NOT INDICATED Normal [facility] Comment on above: Performed By: #### E RUR, UMICRO #### [facility] [address] [place] [address] Dr. Honorio Stevens CAST SEEN Abnormal NONE SEEN [facility] Comment on above: Performed By: #### E RUR, UMICRO #### [facility] [address] [place] [address] Dr. Honorio Stevens Crystals LM Nom (Urine sed) NONE SEEN Normal NONE SEEN [facility] Comment on above: Performed By: #### E RUR, UMICRO #### [facility] [address] [place] [address] Dr. Honorio Stevens Epithelial cells LM Ql (Urine sed) FEW Abnormal NONE SEEN /RARE [facility] Comment on above: Performed By: #### E RUR, UMICRO #### [facility] [address] [place] [address] Dr. Honorio Stevens HYALINE CAST RARE Normal [facility] Comment on above: Performed By: #### E RUR, UMICRO #### [facility] [address] [place] [address] Dr. Honorio Stevens MUCOUS TRACE Abnormal NONE SEEN [facility] Comment on above: Performed By: #### E RUR, UMICRO #### [facility] [address] [address] [address] Honorio Stevens RBC 0-2 Normal 0-2 [facility] Comment on above: Performed By: #### GILL BLANCO #### [facility] [address] [address] [address] Honorio Stevens WBC NONE SEEN Normal NONE SEEN [facility] Comment on above: Performed By: #### GILL BLANCO #### [facility] [address] [address] [address] Honorio Stevens Urinalysis - AUTOMATEDon Appearance (U) clear [employer] Other Bilirubin Ql (U) Negative [employer] Other Color (U) orange [employer] Other Glucose Ql (U) Negative [employer] Other Hemoglobin Ql (U) Negative [employer] Other Ketones Ql (U) Negative [employer] Other Leukocyte esterase Test strip Ql (U) trace [employer] Other Nitrite Ql (U) Positive [employer] Other pH (U) 8.5 [pH] [employer] Other Protein Ql (U) Negative [employer] Other Specific gravity (U) [Rel density] 1.020 [employer] Other Urobilinogen (U) [Mass/Vol] 1.0 mg/dL [employer] Other Urinalysis - AUTOMATED [employer] Other Vital Signs Date Time Vital Sign Value Performing Clinician Facility 05-31-2025 14:46-0400 Body mass index (BMI) [Ratio] 25.7 kg/m2 [facility] 05-31-2025 14:46-0400 Body weight 61.69 kg Toan Ob [facility] 05-31-2025 14:46-0400 Diastolic blood pressure 70 mm[Hg] Toan Ob [facility] 05-31-2025 14:46-0400 Systolic blood pressure 110 mm[Hg] Toan Ob [facility] 01-29-2025 18:29-0400 Body mass index (BMI) [Ratio] 24.98 kg/m2 Elizabeth Stroud DIPPER OPERATOR Work Phone: [facility] 01-29-2025 18:29-0400 Body temperature 98.01 [degF] Elizabeth Stroud DIPPER OPERATOR Work Phone: [facility] 01-29-2025 18:29-0400 Body weight 59.97 kg Elizabeth Stroud DIPPER OPERATOR Work Phone: [facility] 01-29-2025 18:29-0400 Diastolic blood pressure 70 mm[Hg] Elizabeth Stroud DIPPER OPERATOR Work Phone: [facility] 01-29-2025 18:29-0400 Heart rate 86 /min Elizabeth Stroud DIPPER OPERATOR Work Phone: [facility] 01-29-2025 18:29-0400 SaO2% (BldA) [Mass fraction] 99 % Elizabeth Stroud DIPPER OPERATOR Work Phone: [facility] 01-29-2025 18:29-0400 Systolic blood pressure 112 mm[Hg] Elizabeth Stroud DIPPER OPERATOR Work Phone: [facility] 10-19-2024 19:18-0500 Body temperature 98.2 [degF] Ryan Truong DO Work Phone: [facility] 10-19-2024 19:18-0500 Diastolic blood pressure 80 mm[Hg] Ryan Truong DO Work Phone: [facility] 10-19-2024 19:18-0500 Heart rate 105 /min Ryan Truong DO Work Phone: [facility] 10-19-2024 19:18-0500 SaO2% (BldA) [Mass fraction] 95 % Ryan Truong DO Work Phone: [facility] 10-19-2024 19:18-0500 Systolic blood pressure 110 mm[Hg] Ryan Truong DO Work Phone: [facility] 07-31-2024 14:17-0400 Body height 154.9 cm Hamilton Motta MD Work Phone: [facility] 07-31-2024 14:17-0400 Body mass index (BMI) [Ratio] 24.94 kg/m2 Hamilton Motta MD Work Phone: [facility] 07-31-2024 14:17-0400 Body temperature 97.5 [degF] Hamilton Motta MD Work Phone: [facility] 07-31-2024 14:17-0400 Body weight 59.88 kg Hamilton Motta MD Work Phone: [facility] 07-31-2024 14:17-0400 Diastolic blood pressure 60 mm[Hg] Hamilton Motta MD Work Phone: [facility] 07-31-2024 14:17-0400 Heart rate 79 /min Hamilton Motta MD Work Phone: [facility] 07-31-2024 14:17-0400 Respiratory rate 20 /min Hamilton Motta MD Work Phone: [facility] 07-31-2024 14:17-0400 SaO2% (BldA) [Mass fraction] 99 % Hamilton Motta MD Work Phone: [facility] 07-31-2024 14:17-0400 Systolic blood pressure 100 mm[Hg] Hamilton Motta MD Work Phone: [facility] 07-26-2024 11:09-0400 Body height 154.9 cm Aide HODGES Work Phone: [facility] 07-26-2024 11:09-0400 Body mass index (BMI) [Ratio] 24.75 kg/m2 Aide HODGES Work Phone: [facility] 07-26-2024 11:09-0400 Body weight 59.42 kg Aide Isabel TRACIE Work Phone: [facility] 07-26-2024 11:09-0400 Diastolic blood pressure 72 mm[Hg] Aide HODGES Work Phone: [facility] 07-26-2024 11:09-0400 Systolic blood pressure 116 mm[Hg] Aide [place] PA Work Phone: [facility] 02-14-2023 12:50-0400 Body height 154.94 cm Natasha Ventura Other [employer] Other Encounters Encounter Date Encounter Type Care Provider Facility Start: 05-31-2025 End: 05-31-2025 Office outpatient visit 5 minutes Toan Nurse [facility] AVALOS Comment on above: GA: 6w4d Start: 05-31-2025 End: 05-31-2025 ambulatory ELIZABETH STROUD Not Available Start: 05-16-2025 End: 05-16-2025 [facility] Result Encounter Generic External Data Provider [facility] External Department Unsolicited Start: 05-16-2025 End: 05-16-2025 [facility] Result Encounter Generic External Data Provider [facility] External Department Unsolicited Start: 05-14-2025 End: 05-15-2025 [facility] Result Encounter Dimas Toan DO Work Phone: [facility] External [facility] Unsolicited Start: 05-14-2025 End: 05-15-2025 [facility] Result Encounter Dimas Toan DO Work Phone: [facility] External [facility] Unsolicited Start: 01-29-2025 End: 01-29-2025 ambulatory ELIZABETH STROUD Not Available Start: 01-29-2025 End: 01-29-2025 Office outpatient visit 25 minutes Elizabeth Stroud DIPPER OPERATOR Work Phone: [facility] Comment on above: Posterior left knee pain (Primary Dx); Tendinitis of left knee Start: 10-19-2024 End: 10-20-2024 ambulatory RYAN TRUONG Not Available Start: 10-19-2024 End: 10-20-2024 Office outpatient visit 25 minutes Ryan Truong DO Work Phone: [facility] Comment on above: Acute bronchitis, un specified organism (Primary Dx) Start: 08-22-2024 End: 08-22-2024 [facility] Result Encounter Generic External Data Provider [facility] External Department Unsolicited Start: 08-22-2024 End: 08-22-2024 [facility] Result Encounter Generic External Data Provider [facility] External Department Unsolicited Start: 07-31-2024 End: 07-31-2024 Office outpatient visit 15 minutes Hamilton Motta MD Work Phone: [facility] Comment on above: Miscarriage (Primary Dx); Encounter for female family planning counseling Start: 07-31-2024 End: 07-31-2024 ambulatory HAMILTON MOTTA Not Available Start: 07-31-2024 End: 07-31-2024 [facility] Result Encounter Generic External Data Provider [facility] External Department Unsolicited Start: 07-31-2024 End: 07-31-2024 [facility] Result Encounter Generic External Data Provider [facility] External Department Unsolicited Start: 07-26-2024 End: 07-26-2024 Office outpatient visit 15 minutes Aide HODGES Work Phone: [facility] Comment on above: Miscarriage Start: 07-26-2024 End: 07-26-2024 ambulatory AIDE ISABEL Not Available Start: 07-26-2024 End: 07-26-2024 ambulatory Sarah Lynch Marker [facility] Work Phone: Start: 07-26-2024 End: 07-26-2024 Departed Referred DO Sarah Choi Work Phone: [facility] Start: 07-24-2024 End: 07-25-2024 Clinisync Result Encounter Generic External Data Provider [facility] Unsolicited Start: 07-24-2024 End: 07-25-2024 Clinisync Result Encounter Generic External Data Provider [facility] External Department Unsolicited Start: 02-19-2023 End: 02-19-[address] KIZZY LAINEZ . Facility: Start: 02-18-2023 End: 02-18-2023 ambulatory Natasha Ventura Other [facility] Other Start: 02-18-2023 Telephone encounter Natasha Ventura [facility] [address] Start: 02-14-2023 Office outpatient vi sit 15 minutes Natasha Ventura [facility] Start: 02-14-2023 End: 02-14-2023 ambulatory MD Hamilton Motta Work Phone: [employer] Other Start: 02-14-2023 End: 02-14-2023 Departed Referred MD Hamilton Motta Work Phone: [facility] [place] Work Phone: Procedures Date Procedure Procedure Detail Performing Clinician Start: 05-31-2025 Urnls dip stick/tabl et rgnt non-auto w/o micrscp Dimas Toan DO Work Phone: Start: 05-16-2025 [facility] Core y Toan DO Work Phone: Start: 05-14-2025 [facility] Gene ana External Data Provider Start: 08-22-2024 [facility] Gene ana External Data Provider Start: 07-31-2024 [facility] Aide HODGES Work Phone: Start: 07-24-2024 Bacteria identified in Urine by Culture Generic External Data Provider Plan of Treatment Date Care Activity Detail Author Start: 07-02-2025 End: 07-02-2025 Patient encounter procedure 07/02/2025 2:20 PM EDT Routine [facility] [address] [place] [address] Dimas Joya DO [address] [place] [address] [facility] Start: 06-18-2025 Influenza vaccination [facility] Start: 05-31-2025 End: 05-31-2026 ABO/Rh ABO/Rh Lab Routine Missed menses , unspecified gestational age ([facility]) Expected: 05/31/2025 (Approximate), Expires: 05/31/2026 [facility] Comment on above: Expected: 05/31/2025 (Approximate), Expires: 05/31/2026 Start: 05-31-2025 End: 05-31-2025 ambulatory 05/31/2025 2:00 PM EDT Initial [facility] [address] [place] [address] [facility] [place] [facility] Start: 05-31-2025 End: 05-31-2026 Blood type and Indirect antibody screen panel - Blood Type and screen Lab Routine Missed menses , unspecified gestational age ([facility]) Expected: 05/31/2025 (Approximate), Expires: 05/31/2026 [facility] Comment on above: Expected: 05/31/2025 (Approximate), Expires: 05/31/2026 Start: 05-31-2025 End: 05-31-2026 Drugs of abuse panel - Urine by Screen method Rapid drug screen, urine Lab Routine , unspecified gestational age ([facility]) Encounter for supervision of normal first in first trimester ([facility]) Expected: 05/31/2025 (Approximate), Expires: 05/31/2026 [facility] Comment on above: Expected: 05/31/2025 (Approximate), Expires: 05/31/2026 Start: 05-31-2025 End: 05-31-2025 Professional / ancillary services management 05/31/2025 1:30 PM EDT Ancillary Procedure [facility] [place] [address] [place] [address] [facility] [place] [facility] Start: 05-23-2025 End: 08-23-2025 US Pelvis transvaginal US OB transvaginal Imaging Routine Missed menses Positive urine test ([facility]) Expected: 05/23/2025, Expires: 08/23/2025 [facility] Work Phone: Comment on above: Expected: 05/23/2025 , Expires: 08/23/2025 Start: 08-02-2024 End: 08-02-2024 Professional / ancillary services management 08/02/2024 2:30 PM EDT Ancillary Procedure [facility] [address] [place] [address] [facility] Start: 07-31-2024 End: 07-31-2024 Patient encounter procedure 07/31/2024 2:15 PM EDT [facility] [address] [place] [address] Hamilton Motta MD [address] [place] [address] [facility] Start: 07-26-2024 End: 07-26-2025 US for US PELVIS-TRANSVAG IF INDICATED Imaging Routine Miscarriage Expected: 07/26/2024 (Approximate), Expires: 07/26/2025 [facility] Work Phone: Comment on above: Expected: 07/26/2024 (Approximate), Expires: 07/26/2025 Start: 07-26-2024 End: 07-26-2024 Patient encounter procedure 07/26/2024 11:10 AM EDT Office Visit [facility] [address] [place] [id number] Aide Isabel PA [address] [place], [place] [id number] [facility] Start: 06-18-2024 Influenza vaccination Influenza Vacc ine (#1) [facility] Start: 02-14-2023 Bacteria identified in Urine by Culture Urine Culture [facility] Bacteria identified in Urine by Culture Urine culture Microbiology Routine Missed menses Ordered: 05/31/2025 [facility] Comment on above: Ordered: 05/31/2025 CBC W Auto Different ial panel - Blood CBC and differential Lab Routine Missed menses , unspecified gestational age ([facility]) Ordered: 05/31/2025 [facility] Comment on above: Ordered: 05/31/2025 Hemoglobin A1c/Hemoglobin.total in Blood Hemoglobin A1c Lab Routine Missed menses , unspecified gestational age ([facility]) Ordered: 05/31/2025 [facility] Comment on above: Ordered: 05/31/2025 Hepatitis B virus surface Ag [Presence] in Serum or Plasma by Immunoassay Hepatitis B surface antigen Lab Routine Missed menses , unspecified gestational age ([facility]) Ordered: 05/31/2025 [facility] Comment on above: Ordered: 05/31/2025 Hepatitis C virus Ab [Presence] in Serum or Plasma by Immunoassay Hepatitis C antibody Lab Routine Missed menses , unspecified gestational age ([facility]) Ordered: 05/31/2025 [facility] Comment on above: Ordered: 05/31/2025 HIV-1/HIV-2 antigen/antibody combination immunoassay HIV-1 and HIV-2 antibodies Lab Routine Missed menses , unspecified gestational age ([facility]) Ordered: 05/31/2025 [facility] Comment on above: Ordered: 05/31/2025 Reagin Ab [Presence] in Serum by RPR RPR Lab Routine Missed menses , unspecified gestational age ([facility]) Ordered: 05/31/2025 [facility] Comment on above: Ordered: 05/31/2025 Rubella antibody, IgG Rubella an tibody, IgG Lab Routine Missed menses , unspecified gestational age ([facility]) Ordered: 05/31/2025 [facility] Comment on above: Ordered: 05/31/2025 US Pelvis transvaginal US OB tra nsvaginal Imaging Routine Missed menses Positive urine test ([facility]) 05/31/2025 2:02 PM EDT [facility] Payers Date Payer Category Payer Self-pay [id number] 2020 Blue Cross Blue Shield [id number] 2020 Unknown BCBS BCBS [id number] 2020-[facility] [phone] [address] [place] [address] [id number] 2000 Unknown [id number] 2000 Unknown [id number] 2000 Unknown [id number] 2000 Unknown [id number] 2000 Unknown [id number] 2000 Unknown [id number] 2000 Unknown [id number] 2000 Unknown [id number] 1959 [facility] [id number] Medicaid [place] [employer] [id number] 101 [id number] Unknown [id number] Social History Date Type Detail Facility Unknown if ever smoked [facility] Other Start: 09-27-2023 End: 01-29-2025 Sex Assigned At [employer] Other Start: 2000 Sex Assigned At Female F [facility] Start: 04-30-2023 Tobacco smoking status NHIS Never smoked tobacco [facility] Start: 04-30-2023 Tobacco use and exposure Smokeless tobacco non-user [facility] Start: 09-27-2023 End: 05-31-2025 Alcoholic beverage intake Lifetime non-drinker (finding) [facility] Start: 09-27-2023 End: 01-29-2025 History of Social function [facility] Start: 2000 Sex assigned at Not on file [facility] Start: 04-30-2023 Tobacco smoking status NHIS Tobacco smoking consumption unknown [facility] Start: 04-29-2025 [facility] Clinical Notes 02-14-2023 to 05-31-2025 Doreen Hendricks NP - 05/31/2025 2:00 PM EDMarianela Hunter MA - 05/31/2025 2:00 PM EDAmber Stroud NP - 01/29/2025 6:20 PM Rajeev Truong DO - 10/19/2024 7:05 PM EST Note Date & Type Note Facility 05-31-2025 History of Presen t illness Narrative error Reason for Appointment: Patient ID: Natasha Brock is a 24 y.o. female who presents for Amenorrhea Patient presents today for a Nurse OB Intake appointment. Patient is 6w4d with a Estimated Date of Delivery: 01/20/26 OB History Para Term AB Living 2 1 SAB IAB Ectopic Multiple Live Births 1 # Outcome Date GA Lbr Vinicio/2nd Weight Sex Type Anes PTL Lv 2 Current 1 SAB 08/02/24 U Complete Current Medications: has a current medication list which includes the following prescription(s): progesterone and zafemy. Medical History: Active Ambulatory Problems Diagnosis Date Noted Miscarriage ([facility]) 07/31/2024 Encounter for female family planning counseling 07/31/2024 H/O one miscarriage 08/02/2024 Resolved Ambulatory Problems Diagnosis Date Noted No Resolved Ambulatory Problems No Additional Past Medical History No family history on file. Social History Tobacco Use Smoking status: Never Smokeless tobacco: Never Substance Use Topics Alcohol use: Never Drug use: Not on file History reviewed. No pertinent surgical history. No Known Allergies Vitals: Estimated body mass index is 24.98 kg/m as calculated from the following: Height as of 07/31/24: 5' 1 . Weight as of 01/29/25: 132 lb 3.2 oz. BP: Patient's last menstrual period was 03/26/2025. Assessment/Plan Diagnoses and all orders for this visit: Missed menses - US OB transvaginal; Future - Type and screen; Future - ABO/Rh; Future - CBC and differential - Hemoglobin A1c - RPR - Rubella antibody, IgG - Hepatitis B surface antigen - Hepatitis C antibody - HIV-1 and HIV-2 antibodies - Urine culture - POCT , urine manually resulted - POCT urinalysis dipstick manually resulted Positive urine test ([facility]) - US OB transvaginal; Future Amenorrhea - POCT , urine manually resulted - POCT urinalysis dipstick manually resulted 6 weeks gestation of ([facility]) , unspecified gestational age ([facility]) - Type and screen; Future - ABO/Rh; Future - CBC and differential - Hemoglobin A1c - RPR - Rubella antibody, IgG - Hepatitis B surface antigen - Hepatitis C antibody - HIV-1 and HIV-2 antibodies - Rapid drug screen, urine; Future Encounter for supervision of normal first in first trimester ([facility]) - Rapid drug screen, urine; Future Nurse Note: Patient desires Keatchie billion to one. Pt was advised to have both labs and Keatchie done at the same time @ 9 weeks gestation at [facility]. PVU. Pt has a h/o one miscarriage and is currently on progesterone suppositories until 12 weeks gestation. PVU to continue taking the suppositories. Follow Up: Patient is to have labs drawn at directed and return to office for initial OB appointment with provider. Patient may call office as needed with any concerns or questions. Nurse Visit Completed by: Mica Hunter MA documented in this encounter [facility] 01-29-2025 History of Presen t illness Narrative Images from the original note were not included. HPI: Historian of HPI: patient Natasha Brock is a 24 y.o. female who presents today to the Urgent Care with the following complaints and denials due left knee pain which has been present for 1 week(s). C/O Denies Symptom Comments [] [x] swelling [] [x] ecchymosis [] [x] erythema [] [x] tingling [] [x] numbness [x] [] Pain radiation upward [x] [] Weakness [x] [] Decreased ROM [] [x] Trauma Additional Comments: pt has taken Tylenol and knee brace OTC medication without relief Pt denies heat application to the affected area Pt denies cold application to the affected area Pain Scale: 3/10. Pt denies injury to left knee. ROS: A complete system ROS was performed and negative aside from the pertinent positives noted in the HPI and PE. Visit Vitals BP 112/70 (BP Location: Left arm, Patient Position: Sitting, BP Cuff Size: Small adult) Pulse 86 Temp 98 F (Temporal) Wt 132 lb 3.2 oz SpO2 99% BMI 24.98 kg/m OB Status Having periods Smoking Status Never BSA 1.61 m Physical Exam Vitals reviewed. Constitutional: General: She is not in acute distress. Appearance: Normal appearance. HENT: Head: Normocephalic and atraumatic. Nose: Nose normal. Mouth/Throat: Mouth: Mucous membranes are moist. Pharynx: Oropharynx is clear. Eyes: Extraocular Movements: Extraocular movements intact. Conjunctiva/sclera: Conjunctivae normal. Pupils: Pupils are equal, round, and reactive to light. Cardiovascular: Rate and Rhythm: Normal rate. Pulses: Normal pulses. Pulmonary: Effort: Pulmonary effort is normal. No respiratory distress. Breath sounds: No wheezing, rhonchi or rales. Musculoskeletal: Cervical back: Normal range of motion and neck supple. Right knee: No bony tenderness or crepitus. Tenderness present. Normal alignment and normal meniscus. Normal pulse. Left knee: Decreased range of motion. Tenderness present. Legs: Skin: General: Skin is warm and dry. Capillary Refill: Capillary refill takes less than 2 seconds. Findings: No rash. Neurological: General: No focal deficit present. Mental Status: She is alert and oriented to person, place, and time. Psychiatric: Mood and Affect: Mood normal. 1. Posterior left knee pain (Primary) Pt presents today for evaluation of posterior left knee pain. She denies any known injury or falls. She states, Used to be a runner . She declines x ray of knee today. States mother has history of tendinitis. She does not have any palpable masses/lumps to US. No erythema or ecchymosis noted. She denies recent travel. Will follow up with PCP if not improving. - methylPREDNISolone (Medrol Dospak) 4 MG tablets; Follow schedule on package instructions Dispense: 21 tablet; Refill: 0 2. Tendinitis of left knee Dx and tx discussed. RICE protocol. Follow up with PCP if no improvement. - methylPREDNISolone (Medrol Dospak) 4 MG tablets; Follow schedule on package instructions Dispense: 21 tablet; Refill: 0 documented in this encounter [facility] 10-19-2024 History of Presen t illness Narrative Images from the original note were not included. [address] , [address] [facility], [address] P: [phone] F: [phone] HPI Historian of HPI: patient Natasha Brock is a 24 y.o. female who presents today to the Urgent Care with the following complaints and denials which have been present for 6 day(s) C/O Denies Symptom Comments [] [x] Runny Nose [x] [] Difficulty Swallowing [x] [] Sore Throat [x] [] Cough Sometimes dry sometimes productive [x] [] Ear Pain [x] [] Fever subjective [x] [] Chills [] [x] Nasal Congestion [x] [] Myalgia [] [x] Sinus Pain [] [x] Sinus Pressure Additional Comments: pt has taken dayquil, nyquil, cough syrup OTC medication without relief Pt c/o chest discomfort from coughing. ROS A complete system ROS was performed and negative aside from the pertinent positives noted in the HPI and PE. IH Testing: PHYSICAL EXAM Physical Exam Constitutional: Appearance: Normal appearance. HENT: Head: Normocephalic. Right Ear: Tympanic membrane and ear canal normal. Left Ear: Tympanic membrane and ear canal normal. Nose: Congestion and rhinorrhea present. Mouth/Throat: Pharynx: Posterior oropharyngeal erythema present. No oropharyngeal exudate. Cardiovascular: Rate and Rhythm: Normal rate and regular rhythm. Pulmonary: Effort: Pulmonary effort is normal. Breath sounds: No rales. Comments: Coarseness to air entry, with significant cough paroxysms noted. Lymphadenopathy: Cervical: Cervical adenopathy present. Neurological: Mental Status: She is alert. Psychiatric: Mood and Affect: Mood normal. TREATMENT PLAN Diagnoses and all orders for this visit: Acute bronchitis, unspecified organism (Primary) - cefuroxime (Ceftin) 250 MG tablet; 1 po bid until all taken. Take medications as prescribed. Use a humidifier when possible. May use acetaminophen or ibuprofen for pain or fever. RTO if worsening. documented in this encounter [facility] 07-31-2024 History of Presen t illness Narrative Associated Problem(s): Encounter for female family planning counseling Start patches. Associated Problem(s): Miscarriage Recent miscarriage and labs improving. Follow with OB. Feels like handling well and monitor for depression. Images from the original note were not included. Subjective Patient ID: Natasha Moya is a 23 y.o. female who presents for Follow-up (Er f/u). ER follow up from 07/24 and 07/26 after a miscarriage. Patient was about 10 weeks and developed vaginal bleeding. To ER and HCG 4047. US performed and no cardiac activity compatible with demise. Given keflex and told follow with OB. Continued bleeding and very heavy. Returned to ER and HCG improved. Advised follow with OB and was scheduled later that day. Given lab order to monitor HCG and wants followed until <5. Bleeding slowing down and not having cramping. Mentally adjusting. Feels down but symptoms tolerable. Wants to wait until after sister's wedding in April to try getting again. Requests control. Problems remembering to take daily pill and requests patch. Review of Systems Respiratory: Negative for cough, shortness of breath and wheezing. Cardiovascular: Negative for chest pain and palpitations. Gastrointestinal: Negative for abdominal pain, diarrhea, nausea and vomiting. Genitourinary: Negative for dysuria. Objective Physical Exam Constitutional: General: She is not in acute distress. Appearance: Normal appearance. HENT: Head: Normocephalic. Right Ear: Tympanic membrane normal. Left Ear: Tympanic membrane normal. Eyes: Extraocular Movements: Extraocular movements intact. Pupils: Pupils are equal, round, and reactive to light. Cardiovascular: Rate and Rhythm: Normal rate and regular rhythm. Heart sounds: No murmur heard. No friction rub. No gallop. Pulmonary: Effort: Pulmonary effort is normal. Breath sounds: Normal breath sounds. No wheezing, rhonchi or rales. Abdominal: General: Bowel sounds are normal. There is no distension. Palpations: Abdomen is soft. Tenderness: There is no abdominal tenderness. There is no guarding or rebound. Musculoskeletal: Cervical back: Neck supple. Right lower leg: No edema. Left lower leg: No edema. Neurological: Mental Status: She is alert. Assessment/Plan Problem List Items Addressed This Visit Miscarriage - Primary Recent miscarriage and labs improving. Follow with OB. Feels like handling well and monitor for depression. Encounter for female family planning counseling Start patches. Relevant Medications norelgestromin-ethinyl estradiol (Xulane) 150-35 MCG/24HR documented in this encounter [facility] 07-26-2024 History of Presen t illness Narrative Reason for Appointment: Patient ID: Natasha Moya is a 23 y.o. female who presents [...] of: TRACIE Parry documented in this encounter [facility] 02-14-2023 Evaluation note Encounter Date Diagnosis Assessment [...] understanding and is agreeable to treatment plan. [facility] Other Evaluation noteNo assessment information available [facility] Work Phone: Evaluation [facility]No [facility] Other Evaluation note* Diagnosis Miscarriage Unspecified spontaneous without mention of complication [facility] Diagnosis Miscarriage- Primary Unspecified spontaneous without mention of complication Encounter for female family planning counseling [facility] Diagnosis Miscarriage- Primary Unspecified spontaneous without mention of complication Encounter for female family planning counseling Acute bronchitis, unspecified organism- Primary documented in this encounter [facility] Diagnosis Miscarriage- Primary Unspecified spontaneous without mention of complication Encounter for female family planning counseling Posterior left knee pain- Primary Tendinitis of left knee [facility] Diagnosis Miscarriage ([facility])- Primary Unspecified spontaneous without mention of complication Encounter for female family planning counseling Missed menses Positive urine test ([facility]) Amenorrhea Absence of menstruation 6 weeks gestation of ([facility]) , unspecified gestational age ([facility]) Encounter for supervision of normal first in first trimester ([facility]) documented in this encounter [facility] Advance Directives No Advanced Directives Records Found Advance Directive Response Recorded Date/ Time Advance Directives No November 04, 2020 9:01pm Summary Purpose Family History No Family History Records FoundNo Family History Records FoundNo Family History Records Found Additional Source Comments REASON FOR VISIT (unrecogniz ed section and content) Reason Comments Miscarriage Reason Comments Follow-up Er f/u Reason Comments Knee Pain Left Reason Comments Amenorrhea Care Teams (unrecognized sec tion and content) Team Status: Active Member Role Status Dates Hamilton Motta MD Primary Care Provider Active Team Status: Inactive Member Role Status Dates Hamilton Motta MD Primary Care Provider Active Natasha Ventura APRN Attending Provider Active [place] Relationship Specialty Start Date End Date Hamilton Motta MD [address] [place] [address] PCP - General Family Medicine 06/28/24 Team Status: Inactive Member Role Status Dates Sarahraúl Lynch DO Steph Attending Provider Active Start: July 26, 2024 End: July 26, 2024 [place] Relationship Specialty Start Date End Date Hamilton Motta MD [address] [place] [address] PCP - General Family Medicine 06/28/24 [place] [employer] Relationship Specialty Start Date End Date Hamilton Motta MD [address] [place] [address] PCP - General Family Medicine 06/28/24 [employer] Relationship Specialty Start Date End Date Hamilton Motta MD [address] [place] [address] PCP - General Family Medicine 06/28/24 [employer] Relationship Specialty Start Date End Date Hamilton Motta MD [address] [place] [address] PCP - General Family Medicine 10/19/24 Miguel Olivera DO [address] [place] [address] PCP - [facility] 06/18/23 Hamilton Motta MD [address] [place] [address] Family Medicine 10/19/24 [employer] Relationship Specialty Start Date End Date Hamilton Motta MD [address] [place] [address] PCP - General Family Medicine 10/19/24 Hamilton Motta MD [address] [place] [address] PCP - [facility] 09/17/24 Hamilton Motta MD [address] [place] [address] Family Medicine 10/19/24 [employer] Relationship Specialty Start Date End Date Hamilton Motta MD [address] [place] [address] PCP - General Family Medicine 10/19/24 Hamilton Motta MD [address] [place] [address] Family Medicine 10/19/24 [employer] Relationship Specialty Start Date End Date Hamilton Motta MD [address] [place] [address] PCP - General Family Medicine 10/19/24 Hamilton Motta MD [address] [place] [address] Family Medicine 10/19/24 [employer] Relationship Specialty Start Date End Date Hamilton Motta MD [address] [place] [address] PCP - General Family Medicine 10/19/24 Hamilton Motta MD [address] [place] [address] Family Medicine 10/19/24 Goals (unrecognized section and content) Goals may be documented in a n alternate section INFORMATION SOURCE (unrecogn ized section and content) DATE CREATED AUTHOR 02/25/2023 [facility] DATE CREATED AUTHOR AUTHOR'S ORGANIZ ATION 07/31/2024 [facility] DATE CREATED AUTHOR AUTHOR'S ORGANIZ ATION 06/06/2025 [facility] EPIC FOR RECORDS PERTAINING [...] BE BASED ON THE PRIMARY CLINICAL RECORDS. [facility] [employer] [facility]. provides no warranty or guarantee of the accuracy or completeness of information in this document.
[2025-06-27 17:45] LABS: Cannabinoid Screen Urine NEGATIVE (NEGATIVE); Methamphetamines Screen Urine NEGATIVE (NEGATIVE); Tricyclic Antidepressant Urine NEGATIVE (NEGATIVE)
[2025-06-29 12:08] LABS: Rubella Antibodies, IgG <0.90 index (Immune >0.99)
[2025-06-29 13:08] LABS: Rapid Plasma Reagin, Quant Non Reactive titer (NonRea<1:1)
== END 2025-06-27 16:19 | disposition home or self-care (01) ==
LOC: LAB 16:23
PROVIDERS: PCP Family Medicine; Visit Provider Obstetrics & Gynecology
DX: Z34.01 Encounter for supervision of normal first pregnancy, first trimester (principal); N92.6 Irregular menstruation, unspecified
CPT/HCPCS: 36415; 80307; 83036; 85025; 86592; 86762; 86803; 86850; 86900; 86901; 87086; 87340; 87389

== ENCOUNTER 2025-08-01 19:25 | Outpatient (REF) | payer BC, SELFPAY ==
--- OUTSIDE RECORDS SUMMARY | 2025-08-01 19:28 | XMS_ITS | CCD ---
Author Organization [facility] Care Team Providers Care Dimensional Engineer Name Role Phone Natasha Ventura Unavailable MD Hamilton Motta Primary Care Provider [phone] ANASTACIO Ventura Attending Provider PAY ., DR DURAND Admitting Unavailable PAY ., DR DURAND Consulting Unavailable PAY ., DR DURAND Attending Unavailable ÁNGELA, DR HAMILTON Nicholson Primary Care Unavailable KAYCE ., CED Consulting Unavailable Hamilton Motta MD Primary Care Provider [phone] DO Sarah Choi Attending Provider Sarah Choi Attending Unavailable Sarah Choi Admitting Unavailable Hamilton Motta MD Primary Care Provider [phone] Hamilton Motta MD Unavailable Miguel Olivera DO Unavailable [phone] Hamilton Motta MD Unavailable Hamilton Motta MD Primary Care Provider [phone] Hamilton Motta MD Unavailable ELIZABETH STROUD Attending Unavailable ERAN JOYA Attending Unavailable AIDE ISABEL Attending Unavailable HAMILTON [...] 02/21/2025 Active take 1 tablet by kannan th once daily Tri-Linyah 0.18/0.215/0.25 MG-35 MCG TAKE [...] 12 hrs for 5 days February, Active Vit-Fe Fumarate-FA ( 19) 29-1 MG chewable tablet (2 sources) Start: 07-02-2025 End: 08-01-2025 Vit-Fe Fumarate-FA ( 19) 29-1 MG chewable tablet Indications: 11 weeks gestation of ([facility]) , First trimester ([facility]) Chew 1 Units Daily 30 tablet 3 07/02/2025 08/01/2025 Active Progesterone 200 MG suppository (3 sources) Start: 05-14-2025 End: 06-13-2025 Progesterone 200 MG suppository Indications: History of miscarriage Insert 200 mg into the vagina at bedtime Insert suppository vaginally every night at bedtime until 12 weeks gestation 30 suppository 3 05/14/2025 06/13/2025 Active pyridoxine hydrochloride 25 mg oral tablet (2 sources) Start: 07-02-2025 End: 08-01-2025 take 1 tablet by mouth once daily pyridoxine (Vitamin B-6) 25 MG tablet Indications: 11 weeks gestation of ([facility]) , First trimester ([facility]) , Nausea and vomiting, unspecified vomiting type Take 1 tablet (25 mg) by mouth Daily 90 tablet 3 07/02/2025 08/01/2025 Active Completed/Discontinued Medications Medication Drug Class(es) Dates [...] Discontinued (Therapy completed) 168 hr ethinyl estradiol 0.10758 mg/hr / norelgestromin 0.89550 mg/hr transdermal system (8 sources) Progestin, Estrogen Start: 07-31-2024 End: 07-31-2025 apply 1 dose transdermal route every week norelgestromin-ethi nyl estradiol (Xulane) 150-35 MCG/24HR Indications: Encounter for female family planning counseling Apply 1 patch each week for 3 weeks, then remove for 1 week. 3 patch 12 07/31/2024 05/23/2025 Discontinued (Therapy completed) ondansetron 4 mg disintegrating oral tablet (2 sources) Serotonin-3 Receptor Antagonist Start: 07-02-2025 End: 07-02-2025 take 1 tablet by mouth every six hours for nausea ondansetron ODT (Zofran-ODT) 4 MG disintegrating tablet Indications: Nausea and vomiting, unspecified vomiting type Take 1 tablet (4 mg) by mouth every 6 (six) hours if needed for nausea or vomiting 30 tablet 2 07/02/2025 07/02/2025 Discontinued (Entered in error) Zafemy 150-35 MCG/24HR (11 sources) Start: 09-28-2024 End: 07-02-2025 Zafemy 150-35 MCG/24HR 09/28/2024 07/02/2025 Discontinued Start: 09-28-2024 Zafemy 150-35 MCG/24HR 09/28/2024 Active Start: 09-28-2024 Zafemy 150-35 MCG/24HR APPLY 1 patch EVERY WEEK FOR 3 WEEKS, then remove for 1 WEEK 09/28/2024 Active Problems Active Problems Problem Classification Problem Date Documented Date Episodic/Chronic Acute bronchitis (2 sources) Acute bronchitis; Translations: [Acute bronchitis, unspecified] 10-19-2024 Episodic Genitourinary symptoms and ill-defined conditions (8 sources) Dysuria; Translations: [Dysuria] Onset: 02-19-2023 Episodic Menstrual disorders (2 sources) Missed period; Translations: [Irregular menstruation, unspecified] 05-23-2025 Chronic Nausea and vomiting (2 sources) Nausea and vomiting; Translations: [Nausea with vomiting, unspecified] 07-02-2025 Episodic Other connective tissue disease (2 sources) Tendinitis of left knee; Translations: [Other specified enthesopathies of left lower limb, excluding foot] 01-29-2025 Episodic Other nervous system disorders (2 sources) Chronic pain; Translations: [Other chronic pain] Chronic Other non-traumatic joint disorders (2 sources) Pain in left knee; Translations: [Pain in joint, lower leg] 01-29-2025 Episodic Other and delivery including normal (5 sources) Urine test positive; Translations: [Encounter for test, result positive] 05-23-2025 Episodic Residual codes; unclassified (1 source) Gestation period, 6 weeks; Translations: [Less than 8 weeks gestation of ] 05-31-2025 Episodic Residual codes; unclassified (2 sources) Gestation period, 11 weeks; Translations: [11 weeks gestation of ] 07-02-2025 Episodic Urinary tract infections (1 source) Acute cystitis with hematuria Episodic Past or Other Problems Problem Classification Problem Date Documented Date Episodic/Chronic Contraceptive and procreative management (16 sources) Patient encounter status; Translations: [Encounter for other general counseling and advice on contraception] Onset: 07-31-2024 07-31-2024 Episodic Residual codes; unclassified (5 sources) H/O: miscarriage; Translations: [Personal history of other complications of , childbirth and the puerperium] Onset: 08-02-2024 05-23-2025 Episodic Spontaneous (18 sources) Miscarriage; Translations: [Complete or unspecified spontaneous without complication] Onset: 07-31-2024 07-26-2024 Episodic Results Test Name Value Interpretation Reference Range Facility Urinalysis macro (dipstick) panel (U)on 07-02-2025 Bilirubin, UA Negative Negative - 4(70) +++ mg/dL [facility] Blood, UA Negative Negative - 50 Murray/mcL [facility] Clarity, UA Clear [facility] re Color, UA Yellow [facility] e Glucose, UA Negative Negative - 1999(110) ++++ mg/dL [facility] Interpretation and review of laboratory results Abnormal [facility] Ketones, UA Positive Negative - 160(16) ++++ mg/dL [facility] Leukocytes, UA Negative Negative - 500+++ Bharat/mcL [facility] Nitrite, UA Negative Negative - Positive [facility] pH, UA 6 5 - 9 [facility] e Protein, UA Positive Negative - 1999(20) ++++ mg/dL [facility] Spec Grav, UA 1.025 1 - 1.03 [facility] Urobilinogen, UA 1.0 0.2 - 12 mg/dL [facility] ALL CBC WITH AUTO DIFFon BASOPHILS ABSOLUTE AUTO 0 [facility] Basophils/100 WBC (Bld) 0.5 % 0.2 - 2.0 % [facility] Eosinophils/100 WBC (Bld) 3.4 % 0.9 - 7.0 % [facility] Erythrocyte distribution width (RBC) [Ratio] 12.2 % 11.0 - 15.0 % [facility] Hematocrit (Bld) [Volume fraction] 36.9 % 36.0 - 48.0 % [facility] Hem[facility] (Bld) [Mass/Vol] 12.7 g/dL 12.0 - 16.0 g/dL [facility] IMMATURE GRANULOCYTES ABS AUTO 0 [facility] Immature granulocytes/100 WBC (Bld) 0 % 0.0 - 0.5 % [facility] Interpretation and review of laboratory results Abnormal [facility] LYMPHOCYTES ABSOLUTE AUTO 1.4 [facility] Lymphocytes/100 WBC (Bld) 24.7 % 20.5 - 60.0 % [facility] MCH (RBC) [Entitic mass] 31.4 pg 26.7 - 34.0 pg [facility] MCHC (RBC) [Mass/Vol] 34.4 g/dL 29.9 - 35.2 g/dL [facility] MCV (RBC) [Entitic vol] 91.1 fL 81.0 - 99.0 fL [facility] MONOCYTES ABSOLUTE AUTO 0.4 [facility] Monocytes/100 WBC (Bld) 6.7 % 1.7 - 12.0 % [facility] NEUTROPHILS ABSOLUTE AUTO 3.8 [facility] Neutrophils/100 WBC (Bld) 64.7 % 43.0 - 75.0 % [facility] Platelet mean volume (Bld) [Entitic vol] 11.1 fL 9.5 - 13.5 fL [facility] are TBH EO # 0.2 [facility] TB PLT 237 [facility] TB RBC 4.05 Low [facility] WBC 5.8 [facility] BOX TESTon 06-27-2025 BOX TEST SENT OUT [facility] [address] [facility] [address] 06/27/2025 [facility] HCG ( test) Ql (U)o n 05-31-2025 Interpretation and review of laboratory results Abnormal [facility] Preg Test, Ur Positive Negative [facility] e US OB TRANSVAGINALon 025 US [...] UA Negative Negative - 4(70) +++ mg/dL [facility] Blood, UA Negative Negative - 50 Murray/mcL [facility] Clarity, UA Clear [facility] re Color, UA Yellow [facility] [place] [facility] Glucose, UA Negative Negative - 1999(110) ++++ mg/dL [facility] Interpretation and review of laboratory results Abnormal [facility] Ketones, UA Positive Negative - 160(16) ++++ mg/dL [facility] Leukocytes, UA Negative Negative - 500+++ Bharat/mcL [facility] Nitrite, UA Negative Negative - Positive [facility] pH, UA 6 5 - 9 [facility] [place] Protein, UA Negative Negative - 1999(20) ++++ mg/dL [facility] Spec Grav, UA 1.02 1 - 1.03 [facility] Urobilinogen, UA 1.0 0.2 - 12 mg/dL [facility] e TBH PREG QUANT HCGon 05-16- 025 HCG QUANTITATIVE 917 mIU/mL [facility] Comment on above: 5-50 0.2-1 WEEK 50-500 1-2 WEEKS 100-5,000 2-3 WEEKS 500-10,000 3-4 WEEKS 1,000-50,000 4-5 WEEKS 10,000-100,000 5-6 WEEKS 15,000-200,000 6-8 WEEKS 10,000-100,000 2-3 MONTHS [facility] [place] [facility] TBH PREG QUANT HCGon 05-14- 025 HCG QUANTITATIVE 507 mIU/mL [facility] Comment on above: 5-50 0.2-1 WEEK 50-500 1-2 WEEKS 100-5,000 2-3 WEEKS 500-10,000 3-4 WEEKS 1,000-50,000 4-5 WEEKS 10,000-100,000 5-6 WEEKS 15,000-200,000 6-8 WEEKS 10,000-100,000 2-3 MONTHS [facility] TBH PREG QUANT HCGon 024 HCG QUANTITATIVE 9 mIU/mL [facility] Comment on above: 5-50 0.2-1 WEEK 50-500 1-2 WEEKS 100-5,000 2-3 WEEKS 500-10,000 3-4 WEEKS 1,000-50,000 4-5 WEEKS 10,000-100,000 5-6 WEEKS 15,000-200,000 6-8 WEEKS 10,000-100,000 2-3 MONTHS [facility] PREG QUANT HCGon 024 HCG QUANTITATIVE 176 mIU/mL [facility] Comment on above: 5-50 0.2-1 WEEK 50-500 1-2 WEEKS 100-5,000 2-3 WEEKS 500-10,000 3-4 WEEKS 1,000-50,000 4-5 WEEKS 10,000-100,000 5-6 WEEKS 15,000-200,000 6-8 WEEKS 10,000-100,000 2-3 [facility] Arnoldo 07-26-2024 L Specimen: [id number] Received: 07/26/24 Status: MORGAN Londono Num: [id number] Spec Type: Surgical Subm Dr: Sarah Choi DO Tissues: A Products of Conception - Spontaneous or Missed (POD) Procedures: HE/6, Gross/Micro L4 Age/ Patient Sex Location Account Attending Physician Natasha Moya 23/F LABELL [id number] Sarah Choi DO SPEC NUM: [id number] RECD: 07/26/24 STATUS: MORGAN LONDONO NUM: [id number] KIMBERLYN: 07/26/24- SUBM DR: Sarah Choi DO ENTERED: 07/26/[address]: Austin,Lab SPEC TYPE: Surgical DEPT: HOA MCKEON ENTERED BY: [id number] RECV BY: [id number] ORDERED: HE/6, Gross/Micro L4 ORDERED: HE/6, Gross/Micro [...] 0.5 cm Outer canthus 1.0 cm Specimen: [id number] Received: 07/26/24 Status: MORGAN Londono Num: [id number] Spec Type: Surgical Subm Dr: Sarah Choi DO Tissues: A Products of Conception - Spontaneous or Missed (POD) Procedures: /, Gross/Micro L4 Patient: Natasha Moya So [id number] (Continued) Specimen: [id number] Received: 07/26/24 (Continued) Gross Description (Continued) Signed (signatur e on file) Kerline Stevens MD 07/29/24 1152 Specimen: [id number] Received: 07/26/24 Status: MROGAN Londono Num: [id number] Spec Type: Surgical Subm Dr: Sarah Choi DO Tissues: A Products of Conception - Spontaneous or Missed (POD) Procedures: Jose Guadalupe ZEPEDA/Juan L4 Patient: GriffinNatasha [id number] (Continued) Specimen: [id number] Received: 07/26/24 (Continued) Gross Description (Continued) Head circumference 4.1 cm Chest circumference 3.7 cm Abdomen circumference 4.0 cm Attached umbilical cord 3.5 cm in length with a diameter of 0.2 cm Right hand 0.3 cm Left hand 0.4 cm Right foot 0.4 cm Left foot 0.3 cm Cavalero to rump 5.5 cm Cavalero to heel 6.5 cm Received in the same container is a 65 g 11.0 x 8.0 x 1.5 cm ovoid placenta. The surface is pink-wade with underdeveloped vascular structures. The umbilical cord and insertion point is not identified. The membranes are wade-brown, thickened and inserted at the margin. The maternal surface is wade-pink with underdeveloped,varun ledons. Trial Management Associate sections are as follows: A1 membranes A2-A5 full-thickness sections A6 hemorrhagic region DM Microscopic Description Microscopic examinations are performed supporting the above interpretation CPT Codes 28417 72434 Specimen: [id number] Received: 07/26/24 Status: MORGAN Londono Num: [id number] Spec Type: Surgical Subm Dr: Sarah Choi DO Tissues: A Products of Conception - Spontaneous or Missed (POD) Procedures: HE/6, Gross/Micro L4 Patient: Natasha Moya [id number] (Continued) Signed (signatur e on file) Kerline Paula (more content not included)... Normal [facility] URINE CULTURE, ROUTINEon Bacteria identified Cx Nom (U) Urine Culture, Routine [facility] Bacteria identified Cx Nom (U) Mixed urogenital ivania [facility] Bacteria identified Cx Nom (U) 50,000-100,000 colony forming units per mL [facility] Bacteria identified Cx Nom (U) Performed at: [facility] Bacteria identified Cx Nom (U) [address], [place] [id number] [facility] Bacteria identified Cx Nom (U) Aircraft Manager: Junaid Bullard PhD, Phone: [phone] [facility] e ER URINE PROFILEon 3 Bilirubin Ql (U) Negative Normal NEGATIVE [facility] Comment on above: Performed By: #### GILL BLANCO #### [facility] [address] [address] [address] Honorio Stevens Clarity (U) CLEAR Normal CLEAR [facility] Comment on above: Performed By: #### GILL BLANCO #### [facility] [address] [place] [address] Dr. Honorio Stevens Color (U) DK. YELLOW Normal YELLOW [facility] Comment on above: Performed By: #### ERIC BLANCOICRO #### [facility] [address] [place] [address] Dr. Honorio MCKEON A micrscopic examination will be performed if indicated. Normal [facility] Comment on above: Performed By: #### Yevgeniy PRITCHETT UMICRO #### [facility] [address] [place] [address] Dr. Honorio Stevens Glucose Ql (U) Negative Normal NEGATIVE [facility] Comment on above: Performed By: #### Yevgeniy PRITCHETT UMICRO #### [facility] [address] [place] [address] Dr. Honorio Stevens Hemoglobin Ql (U) SMALL Abnormal NEGATIVE [facility] Comment on above: Performed By: #### Yevgeniy PRITCHETT UMICRO #### [facility] [address] [place] [address] Dr. Honorio Stevnes Ketones Ql (U) Negative Normal NEGATIVE [facility] Comment on above: Performed By: #### Yevgeniy PRITCHETT UMICRO #### [facility] [address] [place] [address] Dr. Honorio Stevens LEUKOCYTES Negative Normal NEGATIVE [facility] Comment on above: Performed By: #### Yevgeniy PRITCHETT UMICRO #### [facility] [address] [place] [address] Dr. Honorio Stevens Nitrite Ql (U) Negative Normal NEGATIVE [facility] Comment on above: Performed By: #### Yevgeniy PRITCHETT UMICRO #### [facility] [address] [place] [address] Dr. Honorio Stevens pH (U) 6.5 [pH] Normal 5-9 [facility] Comment on above: Performed By: #### Yevgeniy PRITCHETT UMICRO #### [facility] [address] [place] [address] Dr. Honorio Stevens SPEC GRAVITY 1.020 Normal 1.005-<=1.025 [facility] Comment on above: Performed By: #### E RUR, UMICRO #### [facility] [address] [address] [address] Honorio Stevens UA PROTEIN Negative Normal NEGATIVE/ TRACE [facility] Comment on above: Performed By: #### E RUR, UMICRO #### [facility] [address] [address] [address] Honorio Stevens UR MICRO IND INDICATED Normal [facility] Comment on above: Performed By: #### E RUR, UMICRO #### [facility] [address] [address] [address] Honorio Stevens Urobilinogen Qn (U) 0.2 {Jamaal'U}/dL Normal 0.2 - 1. 0 [facility] Comment on above: Performed By: #### E RUR, UMICRO #### [facility] [address] [place] [address] Dr. Honorio Stevens URon 02-19-2023 , QUAL Negative Normal NEGATIVE [facility] Comment on above: Performed By: #### P REGU #### [facility] [address] [place] [address] Dr. Honorio Stevens URINE MICROSCOPIC ONLYon BACTERIA NONE SEEN Normal NONE SEEN [facility] Comment on above: Performed By: #### E RUR, UMICRO #### [facility] [address] [address] [address] Honorio Stevens Bacteria identified Cx Nom (U) NOT INDICATED Normal [facility] Comment on above: Performed By: #### E RUR, UMICRO #### [facility] [address] [address] [address] Honorio Stevens CAST SEEN Abnormal NONE SEEN [facility] Comment on above: Performed By: #### E RUR, UMICRO #### [facility] [address] [address] [address] Honorio Stevens Crystals LM Nom (Urine sed) NONE SEEN Normal NONE SEEN [facility] Comment on above: Performed By: #### E RUR, UMICRO #### [facility] [address] [address] [address] Honorio Stevens Epithelial cells LM Ql (Urine sed) FEW Abnormal NONE SEEN /RARE [facility] Comment on above: Performed By: #### E RUR, UMICRO #### [facility] [address] [address] [address] Honorio Stevens HYALINE CAST RARE Normal [facility] Comment on above: Performed By: #### E RUR, UMICRO #### [facility] [address] [address] [address] Honorio Stevens MUCOUS TRACE Abnormal NONE SEEN [facility] Comment on above: Performed By: #### E RUR, UMICRO #### [facility] [address] [address] [address] Honorio Stevens RBC 0-2 Normal 0-2 [facility] Comment on above: Performed By: #### E RUR, UMICRO #### [facility] [address] [place] [address] Dr. Honorio Stevens WBC NONE SEEN Normal NONE SEEN [facility] Comment on above: Performed By: #### E RUR, UMICRO #### [facility] [address] [address] [address] Honorio Stevens Urinalysis - AUTOMATEDon Appearance (U) clear [employer] Other Bilirubin Ql (U) Negative [employer] Other Color (U) orange [employer] Other Glucose Ql (U) Negative [employer] Other Hemoglobin Ql (U) Negative [employer] Other Ketones Ql (U) Negative [employer] Other Leukocyte esterase Test strip Ql (U) trace [employer] Other Nitrite Ql (U) Positive [employer] Other pH (U) 8.5 [pH] [employer] Other Protein Ql (U) Negative [employer] Other Specific gravity (U) [Rel density] 1.020 [employer] Other Urobilinogen (U) [Mass/Vol] 1.0 mg/dL [employer] Other Urinalysis - AUTOMATED [employer] Other Vital Signs Date Time Vital Sign Value Performing Clinician Facility 07-02-2025 14:23-0400 Body mass index (BMI) [Ratio] 26.23 kg/m2 Eran Toan DO Work Phone: [facility] 07-02-2025 14:23-0400 Body weight 62.96 kg Eran Toan DO Work Phone: [facility] 07-02-2025 14:23-0400 Diastolic blood pressure 62 mm[Hg] Eran Toan DO Work Phone: [facility] 07-02-2025 14:23-0400 Systolic blood pressure 100 mm[Hg] Eran Toan DO Work Phone: [facility] 05-31-2025 14:46-0400 Body mass index (BMI) [Ratio] 25.7 kg/m2 Toan Ob [facility] 05-31-2025 14:46-0400 Body weight 61.69 kg Toan Ob [facility] 05-31-2025 14:46-0400 Diastolic blood pressure 70 mm[Hg] Toan Ob [facility] 05-31-2025 14:46-0400 Systolic blood pressure 110 mm[Hg] Toan Ob [facility] 01-29-2025 18:29-0400 Body mass index (BMI) [Ratio] 24.98 kg/m2 Elizabeth Stroud PUBLIC HEALTH POLICY ANALYST Work Phone: [facility] 01-29-2025 18:29-0400 Body temperature 98.01 [degF] Elizabeth Stroud PUBLIC HEALTH POLICY ANALYST Work Phone: [facility] 01-29-2025 18:29-0400 Body weight 59.97 kg Elizabeth Stroud PUBLIC HEALTH POLICY ANALYST Work Phone: [facility] 01-29-2025 18:29-0400 Diastolic blood pressure 70 mm[Hg] Elizabeth Stroud PUBLIC HEALTH POLICY ANALYST Work Phone: [facility] 01-29-2025 18:29-0400 Heart rate 86 /min Elizabeth Stroud PUBLIC HEALTH POLICY ANALYST Work Phone: [facility] 01-29-2025 18:29-0400 SaO2% (BldA) [Mass fraction] 99 % Elizabeth Stroud PUBLIC HEALTH POLICY ANALYST Work Phone: [facility] 01-29-2025 18:29-0400 Systolic blood pressure 112 mm[Hg] Elizabeth Stroud PUBLIC HEALTH POLICY ANALYST Work Phone: [facility] 10-19-2024 19:18-0500 Body temperature 98.2 [degF] Ryan Patricia DO Work Phone: [facility] 10-19-2024 19:18-0500 Diastolic blood pressure 80 mm[Hg] Ryan Truong DO Work Phone: [facility] 10-19-2024 19:18-0500 Heart rate 105 /min Ryan Patricia DO Work Phone: [facility] 10-19-2024 19:18-0500 SaO2% (BldA) [Mass fraction] 95 % Ryan Truong DO Work Phone: [facility] 10-19-2024 19:18-0500 Systolic blood pressure 110 mm[Hg] Ryan Truong DO Work Phone: [facility] 07-31-2024 14:17-0400 Body height 154.9 cm Hamilton Motta MD Work Phone: [facility] 07-31-2024 14:17-0400 Body mass index (BMI) [Ratio] 24.94 kg/m2 Hamilton Motta MD Work Phone: [facility] 07-31-2024 14:17-0400 Body temperature 97.5 [degF] Hamilton Motta MD Work Phone: [facility] 07-31-2024 14:17-0400 Body weight 59.88 kg Hamilton Motta MD Work Phone: [facility] 07-31-2024 14:17-0400 Diastolic blood pressure 60 mm[Hg] Hamilton Motta MD Work Phone: [facility] 07-31-2024 14:17-0400 Heart rate 79 /min Hamilton Motta MD Work Phone: [facility] 07-31-2024 14:17-0400 Respiratory rate 20 /min Hamilton Motta MD Work Phone: [facility] 07-31-2024 14:17-0400 SaO2% (BldA) [Mass fraction] 99 % Hamilton Motta MD Work Phone: [facility] 07-31-2024 14:17-0400 Systolic blood pressure 100 mm[Hg] Hamilton Motta MD Work Phone: [facility] 07-26-2024 11:09-0400 Body height 154.9 cm Aide HODGES Work Phone: [facility] 07-26-2024 11:09-0400 Body mass index (BMI) [Ratio] 24.75 kg/m2 Aide Yoan PA Work Phone: [facility] 07-26-2024 11:09-0400 Body weight 59.42 kg Aide Isabel PA Work Phone: [facility] 07-26-2024 11:09-0400 Diastolic blood pressure 72 mm[Hg] Aide Isabel PA Work Phone: [facility] 07-26-2024 11:09-0400 Systolic blood pressure 116 mm[Hg] Aide Isabel PA Work Phone: [facility] 02-14-2023 12:50-0400 Body height 154.94 cm Natasha Ventura Other [employer] Other Encounters Encounter Date Encounter Type Care Provider Facility Start: 07-02-2025 End: 07-02-2025 flow sheet Eran Toan DO Work Phone: [facility] Comment on above: 11 weeks gestation o f ([facility]); First trimester ([facility]); Nausea and vomiting, unspecified vomiting type Start: 07-02-2025 End: 07-02-2025 ambulatory ERAN TOAN Not Available Start: 07-02-2025 End: 07-02-2025 Bamboo flowsheet Eran Toan DO Work Phone: [facility] Start: 07-02-2025 End: 07-02-2025 Bamboo flowsheet Eran Toan DO Work Phone: [facility] Start: 06-27-2025 End: 06-28-2025 Clinisync Result Encounter Doreen Hendricks NP Work Phone: [facility] Unsolicited Start: 06-27-2025 End: 06-28-2025 Clinisync Result Encounter Doreen Hendricks PUBLIC HEALTH POLICY ANALYST Work Phone: [facility] Unsolicited Start: 05-31-2025 End: 05-31-2025 Office outpatient visit 5 minutes Toan Nurse [facility] Comment on above: GA: 6w4d Start: 05-31-2025 End: 05-31-2025 ambulatory ELIZABETH STROUD Not Available Start: 05-16-2025 End: 05-16-2025 Clinisync Result Encounter Generic External Data Provider [facility]solicited Start: 05-16-2025 End: 05-16-2025 Clinisync Result Encounter Generic External Data Provider [facility] Unsolicited Start: 05-14-2025 End: 05-15-2025 Clinisync Result Encounter Eran Toan DO Work Phone: [facility] Unsolicited Start: 05-14-2025 End: 05-15-2025 Clinisync Result Encounter Eran Toan DO Work Phone: [facility] Unsolicited Start: 01-29-2025 End: 01-29-2025 ambulatory ELIZABETH STROUD Not Available Start: 01-29-2025 End: 01-29-2025 Office outpatient visit 25 minutes Elizabeth Stroud PUBLIC HEALTH POLICY ANALYST Work Phone: [facility] Comment on above: Posterior left knee pain [...] Start: 07-26-2024 End: 07-26-2024 ambulatory Sarah Choi [facility] Work Phone: Start: 07-26-2024 End: 07-26-2024 Departed Referred DO Sarah Choi Work Phone: [facility] Start: 07-24-2024 End: 07-25-2024 Clinisync Result Encounter Generic External Data Provider [facility] Unsolicited Start: 07-24-2024 End: 07-25-2024 Clinisync Result Encounter Generic External Data Provider [facility] Unsolicited Start: 02-19-2023 End: 02-19-[address] KIZZY LAINEZ . Facility: Start: 02-18-2023 End: 02-18-2023 ambulatory Natasha Ventura Other [employer] Other Start: 02-18-2023 Telephone encounter Natasha Ventura [facility] [address] Start: 02-14-2023 Office outpatient vi sit 15 minutes Natasha Ventura [facility] Start: 02-14-2023 End: 02-14-2023 ambulatory MD Hamilton Motta Work Phone: [employer] Other Start: 02-14-2023 End: 02-14-2023 Departed Referred MD Hamilton Motta Work Phone: [facility] [place] Work Phone: Procedures Date Procedure Procedure Detail Performing Clinician Start: 07-02-2025 Urnls dip stick/tabl et rgnt non-auto w/o micrscp Eran Toan DO Work Phone: Start: 06-27-2025 ALL CBC WITH AUTO DIFF Eran Toan DO Work Phone: Start: 06-27-2025 BOX TEST Doreen hong PUBLIC HEALTH POLICY ANALYST Work Phone: Start: 05-31-2025 Urnls dip stick/tabl et rgnt non-auto w/o micrscp Eran Toan DO Work Phone: Start: 05-16-2025 [facility] PREG QUANT HCG Core y Toan DO Work Phone: Start: 05-14-2025 [facility] PREG QUANT HCG Gene ana External Data Provider Start: 08-22-2024 [facility] PREG QUANT HCG Gene ana External Data Provider Start: 07-31-2024 [facility] PREG QUANT HCG Aide HODGES Work Phone: Start: 07-24-2024 Bacteria identified in Urine by Culture Generic External Data Provider Plan of Treatment Date Care Activity Detail Author Start: 08-01-2025 End: 08-01-2025 Patient encounter procedure 08/01/2025 2:20 PM EDT Routine [facility] [address] [place] [id number] Aide Isabel PA [address] [place], [place] [id number] [facility] Start: 07-02-2025 End: 07-02-2025 Patient encounter procedure [facility] Comment on above: Arrived Start: 06-18-2025 Influenza vaccination [facility] Start: 05-31-2025 End: 05-31-2026 ABO/Rh ABO/Rh Lab Routine Missed menses , unspecified gestational age ([facility]) Expected: 05/31/2025 (Approximate), Expires: 05/31/2026 [facility] Comment on above: Expected: 05/31/2025 (Approximate), Expires: 05/31/2026 Start: 05-31-2025 End: 05-31-2025 ambulatory 05/31/2025 2:00 PM EDT Initial [facility] [address] [place] [phone] [facility] Start: 05-31-2025 End: 05-31-2026 Blood type and Indirect antibody screen panel - Blood Type and screen Lab Routine Missed menses , unspecified gestational age ([facility]) Expected: 05/31/2025 (Approximate), Expires: 05/31/2026 [facility] Comment on above: Expected: 05/31/2025 (Approximate), Expires: 05/31/2026 Start: 05-31-2025 End: 05-31-2026 Drugs of abuse panel - Urine by Screen method Rapid drug screen, urine Lab Routine , unspecified gestational age ([facility]) Encounter for supervision of normal first in first trimester ([facility]) Expected: 05/31/2025 (Approximate), Expires: 05/31/2026 [facility] Comment on above: Expected: 05/31/2025 (Approximate), Expires: 05/31/2026 Start: 05-31-2025 End: 05-31-2025 Professional / ancillary services management 05/31/2025 1:30 PM EDT Ancillary Procedure [facility] [address] [place] [address] [facility] Start: 05-23-2025 End: 08-23-2025 US Pelvis transvaginal US OB transvaginal Imaging Routine Missed menses Positive urine test ([facility]) Expected: 05/23/2025, Expires: 08/23/2025 [facility] Work Phone: Comment on above: Expected: 05/23/2025 , Expires: 08/23/2025 Start: 08-02-2024 End: 08-02-2024 Professional / ancillary services management 08/02/2024 2:30 PM EDT Ancillary Procedure [facility] [address] [place] [address] [facility] Start: 07-31-2024 End: 07-31-2024 Patient encounter procedure 07/31/2024 2:15 PM EDT Office Visit [facility] [address] [place] [address] Hamilton Motta MD [address] [place] [id number] [facility] Start: 07-26-2024 End: 07-26-2025 US for US PELVIS-TRANSVAG IF INDICATED Imaging Routine Miscarriage Expected: 07/26/2024 (Approximate), Expires: 07/26/2025 [facility] Work Phone: Comment on above: Expected: 07/26/2024 (Approximate), Expires: 07/26/2025 Start: 07-26-2024 End: 07-26-2024 Patient encounter procedure 07/26/2024 11:10 AM EDT Office Visit [facility] [address] [place] [address] Aide Isabel PA [address] [place], [place] [id number] [facility] Start: 06-18-2024 Influenza vaccination Influenza Vacc ine (#1) [facility] Start: 02-14-2023 Bacteria identified in Urine by Culture Urine Culture [facility] Bacteria identified in Urine by Culture Urine culture Microbiology Routine Missed menses Ordered: 05/31/2025 [facility] Comment on above: Ordered: 05/31/2025 CBC W Auto Different ial panel - Blood CBC and differential Lab Routine Missed menses , unspecified gestational age ([facility]) Ordered: 05/31/2025 [facility] Comment on above: Ordered: 05/31/2025 Hemoglobin A1c/Hemoglobin.total in Blood Hemoglobin A1c Lab Routine Missed menses , unspecified gestational age ([facility]) Ordered: 05/31/2025 [facility] Comment on above: Ordered: 05/31/2025 Hepatitis B virus surface Ag [Presence] in Serum or Plasma by Immunoassay Hepatitis B surface antigen Lab Routine Missed menses , unspecified gestational age ([facility]) Ordered: 05/31/2025 [facility] Comment on above: Ordered: 05/31/2025 Hepatitis C virus Ab [Presence] in Serum or Plasma by Immunoassay Hepatitis C antibody Lab Routine Missed menses , unspecified gestational age ([facility]) Ordered: 05/31/2025 [facility] Comment on above: Ordered: 05/31/2025 HIV-1/HIV-2 antigen/antibody combination immunoassay HIV-1 and HIV-2 antibodies Lab Routine Missed menses , unspecified gestational age ([facility]) Ordered: 05/31/2025 [facility] Comment on above: Ordered: 05/31/2025 Reagin Ab [Presence] in Serum by RPR RPR Lab Routine Missed menses , unspecified gestational age ([facility]) Ordered: 05/31/2025 [facility] Comment on above: Ordered: 05/31/2025 Rubella antibody, IgG Rubella an tibody, IgG Lab Routine Missed menses , unspecified gestational age ([facility]) Ordered: 05/31/2025 [facility] Comment on above: Ordered: 05/31/2025 US Pelvis transvaginal US OB tra nsvaginal Imaging Routine Missed menses Positive urine test ([facility]) 05/31/2025 2:02 PM EDT [facility] Payers Date Payer Category Payer Self-pay [id number] 2020 Blue Cross Blue Shield [id number] 2020 Unknown BCBS BCBS xxxxxx [id number] 2020-Present [phone] [address] [place] [address] [id number] 2000 Unknown [id number] 2000 Unknown [id number] 2000 Unknown [id number] 2000 Unknown [id number] 2000 Unknown [id number] 2000 Unknown [id number] 2000 Unknown [id number] 2000 Unknown [id number] 2000 Unknown [id number] 1959 [facility] [id number] Medicaid [employer] [id number] 101 [id number] Unknown [id number] Social History Date Type Detail Facility Unknown if ever smoked [employer] Other Start: 09-27-2023 End: 01-29-2025 Sex Assigned At [employer] Other Start: 2000 Sex Assigned At Female [facility] Start: 04-30-2023 Tobacco smoking status CAIS Never smoked tobacco [facility] Start: 04-30-2023 Tobacco use and exposure Smokeless tobacco non-user [facility] Start: 09-27-2023 End: 07-02-2025 Alcoholic beverage intake Lifetime non-drinker (finding) [facility] Start: 09-27-2023 End: 01-29-2025 History of Social function [facility] Start: 2000 Sex assigned at Not on file [facility] Start: 04-30-2023 Tobacco smoking status CAIS Tobacco smoking consumption unknown [facility] Start: 04-29-2025 [facility] Clinical Notes 02-14-2023 to 07-02-2025 Geneva Rodríguez LPN - 07/02/2025 2:20 PM Alen Hendricks NP - 05/31/2025 2:00 PM EDMarianela Hunter MA - 05/31/2025 2:00 PM EDAmber Stroud NP - 01/29/2025 6:20 PM EDT Note Date & Type Note Facility 07-02-2025 History of Presen t illness Narrative Reason for Appointment: Patient ID: Natasha Brock is a 24 y.o. female who presents for No chief complaint on file. Patient presents today for Return OB appointment. MEDICATIONS Current Outpatient Medications Medication Instructions Vit-Fe Fumarate-FA ( 19) 29-1 MG chewable tablet 1 Units, Oral, Daily pyridoxine (VITAMIN B-6) 25 mg, Oral, Daily ALLERGIES No Known Allergies PROBLEMS Active Ambulatory Problems Diagnosis Date Noted Miscarriage ([facility]) 07/31/2024 Encounter for female family planning counseling 07/31/2024 H/O one miscarriage 08/02/2024 Resolved Ambulatory Problems Diagnosis Date Noted No Resolved Ambulatory Problems No Additional Past Medical History HISTORY PAST MEDICAL HISTORY SOCIAL HISTORY Past Medical History: Diagnosis Date H/O one miscarriage 08/02/2024 Social History Tobacco Use Smoking status: Never [...] Exam Constitutional: Appearance: Normal appearance. She is well-developed. Cardiovascular: Rate and Rhythm: Normal rate and regular rhythm. Pulmonary: Effort: Pulmonary effort is normal. Breath sounds: Normal breath sounds. Abdominal: General: Bowel sounds are normal. There is no distension. Palpations: Abdomen is soft. Tenderness: There is no abdominal tenderness. There is no guarding or rebound. Musculoskeletal: General: No swelling. Normal range of motion. Right lower leg: No edema. Left lower leg: No edema. Neurological: Mental Status: She is alert and oriented to person, place, and time. Skin: General: Skin is warm and dry. Psychiatric: Mood and Affect: Mood normal. Behavior: Behavior normal. Vitals and nursing note reviewed. Exam conducted with a airport operations supervisor present. Vitals: Estimated body mass index is 26.23 kg/m as calculated from the following: Height as of 07/31/24: 5' 1 . Weight as of this encounter: 138 lb 12.8 oz. BP: 100/62 Patient's last menstrual period was 03/26/2025. ASSESSMENT & PLAN ICD-10-CM 1. 11 weeks gestation of ([facility]) Z3A.11 POCT urinalysis dipstick manually resulted Vit-Fe Fumarate-FA ( 19) 29-1 MG chewable tablet pyridoxine (Vitamin B-6) 25 MG tablet 2. First trimester ([facility]) Z34.91 POCT urinalysis dipstick manually resulted Vit-Fe Fumarate-FA ( 19) 29-1 MG chewable tablet pyridoxine (Vitamin B-6) 25 MG tablet 3. Nausea and vomiting, unspecified vomiting type R11.2 pyridoxine (Vitamin B-6) 25 MG tablet DISCONTINUED: ondansetron ODT (Zofran-ODT) 4 MG disintegrating tablet New OB: Patient presents today for 1st time obstetrics appointment with provider. Patient is currently 11w1d . Patients history has been reviewed in great detail including any potential risks. Patient stated she currently has no complaints. Expectations throughout regarding labs, ultrasounds, and appointments have been discussed with the patient in detail. It was reiterated that the patient is to drink 6-8 glasses of water a day, eat 6 small meals a day, do not consume raw or undercooked meat, and [facility]. Patient has been consulted regarding any further do's and don'ts of . Patient voiced understanding and all questions and concerns were answered. Patient complaints of nausea in the the morning & will use Vitamin B6 daily verses nausea medication at this time. Cancelled order for Zofran that was sent to pharmacy. Orders Placed This Encounter Procedures POCT urinalysis dipstick manually resulted Follow Up: Patient is to return in 4 weeks for routine OB appointment. Documented by Geneva Rodríguez LPN on behalf of: Eran Joya DO documented in this encounter [facility] 05-31-2025 History of Presen t illness Narrative [...] Active Ambulatory Problems Diagnosis Date Noted Miscarriage ([facility]) 07/31/2024 Encounter for female family [...] urinalysis dipstick manually resulted Positive urine test ([facility]) - US OB transvaginal; Future Amenorrhea - POCT , urine manually resulted - POCT urinalysis dipstick manually resulted 6 weeks gestation of ([facility]) , unspecified gestational age ([facility]) - Type and screen; Future - ABO/Rh; Future - CBC and differential - Hemoglobin A1c - RPR - Rubella antibody, IgG - Hepatitis B surface antigen - Hepatitis C antibody - HIV-1 and HIV-2 antibodies - Rapid drug screen, urine; Future Encounter for supervision of normal first in first trimester ([facility]) - Rapid drug screen, urine; Future Nurse Note: Patient desires Bellbrook billion to one. Pt was advised to have both labs and [place] done at the same time @ 9 weeks gestation at [facility]. PVU. Pt has a h/o one miscarriage [...] Mica Hunter MA documented in this encounter [facility] 01-29-2025 History of Presen t illness [...] tablet; Refill: 0 documented in this encounter [facility] 10-19-2024 History of Presen t illness Narrative Images from the original note were not included. [address] , [address] [facility], [address] P: [phone] F: [phone] HPI Historian of HPI: patient Natasha Brock [...] RTO if worsening. documented in this encounter [facility] 07-31-2024 History of Presen t illness [...] (Xulane) 150-35 MCG/24HR documented in this encounter [facility] 07-26-2024 History of Presen t illness [...] of: TRACIE Parry documented in this encounter [facility] 02-14-2023 Evaluation note Encounter Date Diagnosis [...] understanding and is agreeable to treatment plan. [facility] [employer] Other Evaluation noteNo assessment information available [facility] Work Phone: [email or web address] noteNo InformationNortTor[facility] [employer] Other Evaluation note* Diagnosis Miscarriage Unspecified spontaneous without mention of complication documented in this encounter [facility] Healthcare[facility] note* Diagnosis Miscarriage- Primary Unspecified spontaneous without mention of complication Encounter for female family planning counseling [facility] Diagnosis Miscarriage- Primary Unspecified spontaneous without mention of complication Encounter for female family planning counseling Acute bronchitis, unspecified organism- Primary documented in this encounter [facility] Healthcare[facility] note* Diagnosis Miscarriage- Primary Unspecified spontaneous without mention of complication Encounter for female family planning counseling Posterior left knee pain- Primary Tendinitis of left knee [facility] Diagnosis Miscarriage ([facility])- Primary Unspecified spontaneous without mention of complication Encounter for female family planning counseling Missed menses Positive urine test ([facility]) Amenorrhea Absence of menstruation 6 weeks gestation of ([facility]) , unspecified gestational age ([facility]) Encounter for supervision of normal first in first trimester ([facility]) [facility] Diagnosis Miscarriage ([facility])- Primary Unspecified spontaneous without mention of complication Encounter for female family planning counseling 11 weeks gestation of ([facility]) First trimester ([facility]) state, incidental Nausea and vomiting, unspecified vomiting type documented in this encounter [facility] Advance [...] Active Natasha Ventura APRN Attending Provider Active Dimensional Engineer Relationship Specialty Start Date End Date Hamilton Motta MD [address] [place] [address] PCP - General Family Medicine 06/28/24 Team Status: Inactive Member Role Status Dates Sarah Choi DO Attending Provider Active Start: July 26, 2024 End: July 26, 2024 Dimensional Engineer Relationship Specialty Start Date End Date Hamilton Motta MD [address] [place] [address] PCP - General Family Medicine 06/28/24 Dimensional Engineer Relationship Specialty Start Date End Date Hamilton Motta MD [address] [place] [address] PCP - General Family Medicine 06/28/24 Dimensional Engineer Relationship Specialty Start Date End Date Hamilton Motta MD [address] [place] [address] PCP - General Family Medicine 06/28/24 Dimensional Engineer Relationship Specialty Start Date End Date Hamilton Motta MD [address] [place] [address] PCP - General Family Medicine 10/19/24 Miguel Olivera DO [address] [facility] [address] [place] [address] PCP - [employer] 06/18/23 Hamilton Motta MD [address] [place] [address] Family Medicine 10/19/24 Dimensional Engineer Relationship Specialty Start Date End Date Hamilton Motta MD [address] [place] [address] PCP - General Family Medicine 10/19/24 Hamilton Motta MD [address] [place] [address] PCP - [employer] 09/17/24 Hamilton Motta MD [address] [place] [address] Family Medicine 10/19/24 Dimensional Engineer Relationship Specialty Start Date End Date Hamilton Motta MD [address] [place] [address] PCP - General Family Medicine 10/19/24 Hamilton Motta MD [address] [place] [address] Family Medicine 10/19/24 Dimensional Engineer Relationship Specialty Start Date End Date Hamilton Motta MD [address] [place] [address] PCP - General Family Medicine 10/19/24 Hamilton Motta MD [address] [place] [address] Family Medicine 10/19/24 Dimensional Engineer Relationship Specialty Start Date End Date Hamilton Motta MD [address] [place] [address] PCP - General Family Medicine 10/19/24 Hamilton Motta MD [address] [place] [address] Family Medicine 10/19/24 Dimensional Engineer Relationship Specialty Start Date End Date Hamilton Motta MD PCP - General Family Medicine 10/19/24 Hamilton Motta MD Family Medicine 10/19/24 Dimensional Engineer Relationship Specialty Start Date End Date Hamilton Motta MD PCP - General Family Medicine 10/19/24 Hamilton Motta MD Family Medicine 10/19/24 Dimensional Engineer Relationship Specialty Start Date End Date Hamilton Motta MD PCP - General Family Medicine 10/19/24 Hamilton Motta MD Family Medicine 10/19/24 Goals (unrecognized section and content) Goals may be documented in a n alternate section INFORMATION SOURCE (unrecogn ized section and content) DATE CREATED AUTHOR 02/25/2023 [facility] DATE CREATED AUTHOR AUTHOR'S ORGANIZ ATION 07/31/2024 [facility] DATE CREATED AUTHOR AUTHOR'S ORGANIZ ATION 07/03/2025 [facility] FOR RECORDS PERTAINING TO PATIENTS WHO ARE [...] BE BASED ON THE PRIMARY CLINICAL RECORDS. [facility] provides no warranty or guarantee of the accuracy or completeness of information in this document.
[2025-08-07 14:09] LABS: Age Gdln ACOG Testing Note (.); IGP, rfx Aptima HPV ASCU Note (.)
== END 2025-08-01 19:26 | disposition home or self-care (01) ==
LOC: LAB 19:25
PROVIDERS: PCP Family Medicine; Visit Provider Physician Assistant
DX: Z34.92 Encounter for supervision of normal pregnancy, unspecified, second trimester (principal)
CPT/HCPCS: 88175

== ENCOUNTER 2025-10-17 06:31 | Outpatient (OUT) | payer BC, SELFPAY ==
--- OUTSIDE RECORDS SUMMARY | 2025-10-03 11:20 | XMS_ITS | Encounter Summary ---
Author Organization [facility] Address [address] [place] [address] Care Team Providers Care Range Mounter Name Role Phone Hamilton Monaco MD Primary Care Provider [phone] Hamilton Monaco MD Unavailable Reason for Visit * ReasonCommentsRoutine Visit Encounter Details DateTypeDepartmentCare Team (Latest Contact Info)Oytrksarhuh98/17/2025 11:20 AM ESTRoutine [facility] [address] [place] [address] Dimas Joya DO [address] [place], [place] [phone] Second trimester ([facility]); 24 weeks gestation of ([facility]); Diabetes mellitus screening Social History Tobacco UseTypesPacks/DayYears UsedDateSmoking Tobacco: NeverSmokeless Tobacco: NeverAlcohol UseStandard Drinks/WeekCommentsNever0 (1 standard drink = 0.6 oz pure alcohol)Estimated Date of ShungjkbRwujbnudTvu18/05/2026ased on UltrasoundSex and Gender InformationValueDate RecordedSex Assigned at BirthNot on fileLegal VoaZdbvxm27/14/2023 6:17 PM EDTGender IdentityNot on fileSexual OrientationNot on filedocumented as of this encounter Last Filed Vital Signs Vital SignReadingTime TakenCommentsBlood Dpnqnuqj933/6410/03/2025 11:40 AM EST Pulse--Temperature--Respiratory Rate--Oxygen Saturation--Inhaled Oxygen Concentration--Czqxzw70.1 kg (150 lb 1.9 oz)10/03/2025 11:40 AM ESTHeight--Body Mass Index28.361 2:17 PM EDTdocumented in this encounter Progress Notes * Makenzie Beth, FLOOR FINISHER HELPER - 10/03/2025 11:20 AM EST Reason for Appointment: Patient ID: Natasha Brock is a 25 y.o. female who presents for Routine Visit Patient presents today for Return OB appointment. MEDICATIONS No current outpatient medications ALLERGIES No Known Allergies PROBLEMS Active Ambulatory Problems Diagnosis Date Noted Miscarriage ([facility]) 07/31/2024 Encounter for female family planning counseling [...] No family history on file. SURGICAL HISTORY No past surgical history on file. REVIEW OF SYSTEMS Review of Systems: Review [...] nursing note reviewed. Exam conducted with a crop roller present. Vitals: Estimated body mass index is 28.36 kg/m?? as calculated from the following: Height as of 07/31/24: 5' 1 . Weight as of this encounter: 150 lb 1.9 oz. BP: 108/64 Patient's last menstrual period was 03/26/2025. Assessment/Plan ICD-10-CM 1. Second trimester ([facility]) Z34.92 2. 24 weeks gestation of ([facility]) Z3A.24 3. Diabetes mellitus screening Z13.1 POCT urinalysis dipstick manually resulted CBC Glucose tolerance, 1 hour CBC Glucose tolerance, 1 hour Assessment/Plan Patient presents today for a routine obstetrics appointment. Patient is currently 24w3d with a Estimated Date of Delivery: 01/20/26. Pt given glucola order with instructions. labor precautions given. Pt to return in 4 weeks for scheduled Ob appt. Documented by Makenzie Beth LPN on behalf of: Dimas Joya DO documented in this encounter Plan of Treatment DateTypeDepartmentCare Team (Latest Contact Info)Iaefzqglpoi96/14/2026 1:30 PM ESTRoutine [facility] [address] [place] [address] Doreen Hendricks, TOSHIA [address] [place] [address] NameTypePriorityAssociated DiagnosesOrder ScheduleCBCLabRoutine Diabetes mellitus screening Expected: 10/03/2025 (Approximate), Expires: 10/03/2026Glucose tolerance, 1 hour LabRoutine Diabetes mellitus screening Expected: 10/03/2025 (Approximate), Expires: 10/03/2026documented as of this encounter Procedures Procedure NamePriorityDate/TimeAssociated DiagnosisCommentsPOCT URINALYSIS DPVSTEKGIqlamnd97/17/2025 11:41 AM EST Diabetes mellitus screening documented in this encounter Results * POCT urinalysis dipstick manually resulted (10/03/2025 11:41 AM EST)Component ValueRef RangeTest MethodAnalysis TimePerformed AtPathologist SignatureColor, UAYellowClarity, UAClearGlucose, UAPositiveNegative - 1999(110) ++++ mg/dL Bilirubin, UANegativeNegative - 4(70) +++ mg/dLKetones, UANegativeNegative - 160(16) ++++ mg/dLSpec Grav, UA1.0201 - 1.03Blood, UANegativeNegative - 50 Murray/mcLpH, UA6.05 - 9Protein, UANegativeNegative - 2000(20) ++++ mg/dL Urobilinogen, UA1.00.2 - 12 mg/dLLeukocytes, UAPositiveNegative - 500+++ Bharat/mcLNitrite, UANegativeNegative - PositiveSpecimen (Source)Anatomical Location / LateralityCollection Method / VolumeCollection TimeReceived Time Urine10/03/2025 11:41 AM EST Narrative Authorizing ProviderResult TypeResult StatusCorey Toan DOPOINT OF CARE TEST ENTER/EDIT ORDERABLESFinal Result documented in this encounter Visit Diagnoses Diagnosis Second trimester ([facility]) state, incidental 24 weeks gestation of ([facility]) Diabetes mellitus screening Screening for diabetes mellitus documented in this encounter Care Teams Team MemberRelationshipSpecialtyStart DateEnd Date Hamilton Monaco MD [address] [place] [phone] PCP - GeneralFamily Medicine10/19/24 Hamilton Monaco MD [address] [place] [phone] Family Medicine10/19/24documented as of this encounter
--- OUTSIDE RECORDS SUMMARY | 2025-10-17 06:34 | XMS_ITS | Clinical Summary ---
Author Organization [facility] Address [address] [place] [address] Care Team Providers Care Brake Machine Operator Name Role Phone Hamilton Monaco MD Primary Care Provider [phone] Hamilton Monaco MD Unavailable Allergies No known active allergies Medications No known medications Active Problems ProblemNoted DateDiagnosed DateH/O one tafjqqkwmcs02/16/2024Miscarriage ([facility])07/31/2024 Assessment & Plan (07/31/2024 3:13 PM EDT): Recent miscarriage and labs improving. Follow with OB. Feels like handling well and monitor for depression. Encounter for female family planning gvwftcywxm59/14/2024 Assessment & Plan (07/31/2024 3:13 PM EDT): Start patches. Estimated Date of KweuqaglGxhfkpazUdd75/05/2026Based on Ultrasound Encounters DateTypeDepartmentCare VoskJkzvjmfjoxa62/17/2025 11:20 AM ESTRoutine [facility] [address] [place] [address] Dimas Joya DO Second trimester ([facility]); 24 weeks gestation of ([facility]); Diabetes mellitus pudamphda11/17/2025Bamboo flowsheet [facility] [address] [address] Dimas Joya, DO 09/12/2025bstract [facility] [address] [place] [address] Dimas Joya, 09/05/2025 2:50 PM ESTRoutine [facility] [address] [place] [address] Dimas Joya, DO Second trimester ([facility]); 20 weeks gestation of ([facility])09/05/2025 11:00 AM ESTAncillary Procedure [facility] [address] [place] [address] Screening, , for anatomic survey ([facility])08/28/2025Telephone [facility] [address] [place] [address] Micaela Orellana MA 08/20/2025Telephone [facility] [address] [place] [address] Dimas Joya, 08/13/2025Orders Only [facility] [address] [place] [address] Mica Hunter MA 08/03/2025Telephone [facility] [address] [place] [address] Aide Milton PA 08/01/2025 2:20 PM EDTRoutine [facility] [address] [place] [phone] Aide Milton PA Second trimester ([facility]); Well woman exam with routine gynecological exam08/01/2025External Result Encounter [facility] Unsolicited Aide Milton PA 08/01/2025amboo flowsheet [facility] [address] [place] [address] Aide Milton PA from Last 3 Months Social History Tobacco UseTypesPacks/DayYears UsedDateSmoking Tobacco: NeverSmokeless Tobacco: Never Tobacco Cessation:Counseling Given: Not Answered Alcohol UseStandard Drinks/WeekCommentsNever0 (1 standard drink = 0.6 oz pure alcohol)Estimated Date of XqutjxqoBktnzylpSme83/05/2026ased on UltrasoundSex and Gender InformationValueDate RecordedSex Assigned at BirthNot on fileLegal TphLbolpl87/14/2023 6:17 PM EDTGender IdentityNot on fileSexual OrientationNot on file Last Filed Vital Signs Vital SignReadingTime TakenCommentsBlood Tgjmcagw822/6410/03/2025 11:40 AM EST Zyunu537501/29/2025 6:29 PM CLRNhsqpgyctkl29.7 ??C (98 ??F)01/29/2025 6:29 PM EDT Respiratory Ruzg5859 2:17 PM EDTOxygen Nvujpesjla43%01/29/2025 6:29 PM EDTInhaled Oxygen Concentration--Vnfpfv34.1 kg (150 lb 1.9 oz)10/03/2025 11:40 AM RHTAihdym401.9 cm (5' 1 )07/31/2024 2:17 PM EDTBody Mass Index28.361 2:17 PM EDT Plan of Treatment DateTypeDepartmentCare Team (Latest Contact Info)Dckewjevxpt33/14/2026 1:30 PM ESTRoutine [facility] [address] [place] [address] Doreen Hendricks, TOSHIA [address] [place] [address] Procedures Procedure NamePriorityDate/TimeAssociated DiagnosisCommentsPOCT URINALYSIS AZDWKBAGZbcfhrz34/17/2025 11:41 AM EST Diabetes mellitus screening POCT URINALYSIS VESHBLLSBuuftot51/19/2025 2:58 PM EST 20 weeks gestation of ([facility]) US OB 14+ WEEKS ANATOMY JWQVXtbxfjh50/19/2025 12:11 PM EST Screening, , for anatomic survey ([facility]) RECURRENT VAGINITIS (HTRX)Wjrihff4308/01/2025 4:21 PM EDT POCT URINALYSIS VPAGQEDHEjeobbg29/15/2025 2:46 PM EDT Well woman exam with routine gynecological exam PAP TEST, RXBVQUTFKmufwih31/15/2025 12:00 AM EDTfrom Last 3 Months Results * POCT urinalysis dipstick manually resulted (10/03/2025 11:41 AM EST) Only the most recent of3 resultswithin the time period is included. ComponentValueRef RangeTest MethodAnalysis TimePerformed AtPathologist Signature Color, UAYellowClarity, UAClearGlucose, UAPositiveNegative - 2000(110) ++++ mg/dLBilirubin, UANegativeNegative - 4(70) +++ mg/dLKetones, UANegativeNegative - 160(16) ++++ mg/dLSpec Grav, UA1.0201 - 1.03Blood, UANegativeNegative - 50 Murray/mcLpH, UA6.05 - 9Protein, UANegativeNegative - 2000(20) ++++ mg/dL Urobilinogen, UA1.00.2 - 12 mg/dLLeukocytes, UAPositiveNegative - 500+++ Bharat/mcL Nitrite, UANegativeNegative - PositiveSpecimen (Source)Anatomical Location / LateralityCollection Method / VolumeCollection TimeReceived HimaMmhjb57/17/2025 11:41 AM EST Narrative Authorizing ProviderResult TypeResult StatusCorey Toan DOPOINT OF CARE TEST ENTER/EDIT ORDERABLESFinal Result * US OB 14+ weeks anatomy scan (09/05/2025 12:11 PM EST)Anatomical Region LateralityModalityBodyUltrasoundSpecimen (Source)Anatomical Location / LateralityCollection Method / VolumeCollection TimeReceived Time09/05/2025 2:29 PM EST Addenda Addendum by Stephon Somers MD on 09/12/2025 8:18 AM EST ADDENDUM #1 On the original report, the cervical length was incorrectly entered. ??The cervical length is 4.1 cm. TRANSCRIBED BY: ? ELECTRONICALLY SIGNED BY: Stephon Somers MD Impressions 09/05/2025 3:09 PM EST Single, live intrauterine , current sonographic age of 20 weeks and 4 days, with an estimated date of delivery of January 19, 2026. * ??Estimated Weight (g) by Percentile is based upon an accurate estimated age based onlast menstrual period. ?? TRANSCRIBED BY: ? ELECTRONICALLY SIGNED BY: Stephon Somers MD Narrative 09/05/2025 3:09 PM EST FINDINGS: A single, live intrauterine is present with normal cardiac rate of ??136 beats per minute. Normal activity and amniotic fluid volume. Morphology is grossly normal. ?The placenta is anterior, Grade 1, inferior aspect 5.7 cm from the closed internal cervical os, cervical length 1.4 cm. The current sonographic age is 20 weeks and 4 days, based on the following measurements: BPD ? 4.9 cm (20 weeks, 6 days) Head Circumference ?18.0cm (20 weeks, 3 days) Abdominal Circumference ?15.4cm (20 weeks, 4 days) Femur Length ? 3.4cm (20 weeks, 4 days) Presentation ? Cephalic ? Placenta ? Anterior, Grade 1 Weight (g) by Percentile ??53.7 % * These measurements result in an estimated date of delivery of January 19, 2026. ?? The current estimated weight is 363 ?? grams ( ??pound, ??13 ounces). ?? Procedure Note Stephon Somers MD - 09/05/2025 FINDINGS: A single, live intrauterine is present with normal cardiacrate of 136 beats per minute. Normal activity and amniotic fluidvolume. Morphology is grossly normal. The placenta is anterior, Grade1, inferior aspect 5.7 cm from the closed internal cervical os, cervicallength 1.4 cm. The current sonographic age is 20 weeks and 4 days, basedon the following measurements: BPD 4.9 cm (20 weeks, 6 days) Head Circumference 18.0cm (20 weeks, 3 days) Abdominal Circumference 15.4cm (20 weeks, 4 days) Femur Length 3.4cm (20 weeks, 4 days) Presentation Cephalic Placenta Anterior, Grade 1 Weight (g) by Percentile 53.7 % * These measurements result in an estimated date of delivery of January. The current estimated weight is 363 grams ( pound, 13ounces). IMPRESSION: Single, live intrauterine , current sonographic age of 20 weeksand 4 days, with an estimated date of delivery of January 19, 2026. * Estimated Weight (g) by Percentile is based upon an accurateestimated age based on last menstrual period. TRANSCRIBED BY: ELECTRONICALLY SIGNED BY: Stephon Somers MD Authorizing ProviderResult TypeResult StatusCorey Toan DOIMG OB US PROCEDURES Edited Result - Final * (ABNORMAL) RECURRENT VAGINITIS (HTRX) (08/01/2025 4:21 PM EDT)ComponentValue Ref RangeTest MethodAnalysis TimePerformed AtPathologist SignatureATOPOBIUM YDNLUFF93.016(A)19.961 - 24.689 ppm08/03/2025 7:20 AM EDTHealthTrackRx at [facility] HospitalATOPOBI VAGINAEDetected(A)19.961 - 24.689 ppm08/03/2025 7:20 AM EDT [facility] HospitalBVAB 2,3 (BACTERIAL VAGINOSIS ASSOCIATED BACTERIA 2, 3); MOBILUNCUS JCQ788.961 - 24.689 ppm08/03/2025 7:20 AM EDTHealthTrackRx at [facility] HospitalBVAB 2,3 (BACTERIAL VAGINOSIS ASSOCIATED BACTERIA 2, 3); MOBILUNCUS SPP Not Tdlvyfbh67.961 - 24.689 ppm08/03/2025 7:20 AM EDTHealthTrackRx at [facility] ZOFIA ALBICANS, PARAPSILOSIS, TONBUKMWAK41.602(A)23.000 - 30.347 ppm 08/03/2025 7:20 AM EDTHealthTrackRx at LabPortCANDIDA ALBICANS, PARAPSILOSIS, TROPICALISDetected(A)23.000 - 30.347 ppm08/03/2025 7:20 AM EDTHealthTrackRx at [facility] HospitalCANDIDA SXMVAEDV238.000 - 31.618 ppm08/03/2025 7:20 AM EDTHealthTrackRx at [facility] HospitalCANDIDA GLABRATANot Zqneqbqt74.000 - 31.618 ppm08/03/2025 7:20 AM EDTHealthTrackRx at [facility] HospitalCANDIDA MISVRN771.000 - 30.873 ppm08/03/2025 7:20 AM EDTHealthTrackRx at [facility] HospitalCANDIDA KRUSEINot Pqxuvsva38.000 - 30.873 ppm 08/03/2025 7:20 AM EDTHealthTrackRx at [facility] HospitalCHLAMYDIA SIBQLTIXAPI077.000 - 31.586 ppm08/03/2025 7:20 AM EDTHealthTrackRx at [facility] HospitalCHLAMYDIA TRACHOMATIS Not Bevuoiit77.000 - 31.586 ppm08/03/2025 7:20 AM EDT[facility] GARDNERELLA FMVXPZHWO95.042(A)19.961 - 24.689 ppm08/03/2025 7:20 AM EDT [facility] HospitalGARDNERELLA VAGINALISDetected(A)19.961 - 24.689 ppm 08/03/2025 7:20 AM EDTHealthTrackRx at [facility] HospitalMEGASPHAERA (TYPES 1, 2)019.961 - 24.689 ppm08/03/2025 7:20 AM EDTHealthTrackRx at [facility] HospitalMEGASPHAERA (TYPES 1, 2)Not Azmbxvwj87.961 - 24.689 ppm08/03/2025 7:20 AM EDTHealthTrackRx at [facility] HospitalNEISSERIA YGQVQSFYVAB300.000 - 32.587 ppm08/03/2025 7:20 AM EDT [facility] HospitalNEISSERIA GONORRHOEAENot Mjdlezzm33.000 - 32.587 ppm 08/03/2025 7:20 AM EDTHealthTrackRx at [facility] HospitalTRICHOMONAS LWAZJHDTS555.000 - 31.995 ppm08/03/2025 7:20 AM EDTHealthTrackRx at [facility] HospitalTRICHOMONAS VAGINALIS Not Qxnrcyhx65.000 - 31.995 ppm08/03/2025 7:20 AM EDT[facility] MYCOPLASMA IBJAVEXHRS273.961 - 24.689 ppm08/03/2025 7:20 AM EDTHealthTrackRx at [facility] HospitalMYCOPLASMA GENITALIUMNot Abmpauyo80.961 - 24.689 ppm08/03/2025 7:20 AM EDT[facility] at [facility], ; MEFA17.871(A)23.000 - 27.500 ppm 08/03/2025 7:20 AM EDT[facility] at [facility], ; MEFADetected(A)23.000 - 27.500 ppm08/03/2025 7:20 AM EDTHealthTrackRx at [facility] HospitalSpecimen (Source) Anatomical Location / LateralityCollection Method / VolumeCollection Time Received ZcuqOcowtf27/15/2025 4:21 PM EDT1 2:19 AM EDT Narrative Authorizing ProviderResult TypeResult StatusAmy Yoan PALAB BLOOD ORDERABLES Final ResultPerforming OrganizationAddressCity/State/ZIP CodePhone Number [facility] [place] [phone] [address] [address] * PAP TEST, EXTERNAL (08/01/2025 12:00 AM EDT) Narrative Authorizing ProviderResult TypeResult StatusAmy Mccausland PALAB CYTOLOGY ORDERABLES Final ResultPerforming OrganizationAddressCity/State/ZIP CodePhone Number EXTERNAL LAB from Last 3 Months Insurance Care Teams Team MemberRelationshipSpecialtyStart DateEnd Date Hamilton Monaco MD [address] [place] [phone] PCP - GeneralFamily Medicine10/19/24 Hamilton Monaco MD [address] [place] [phone] Family Medicine10/19/24
--- OUTSIDE RECORDS SUMMARY | 2025-10-17 06:34 | XMS_ITS ---
Author Organization [facility] Source Produ ction (ClinicalSummary Clone) Address Unknown Care Team Providers Care Entry Level Administrative Assistant Name Role Phone Unavailable Primary Care Physician Unavailab le Results * [UNITY] ANEUPLOIDY NIPT Performed by: [facility] Component Value Range Date Fraction 7.5% 07/04/2025 12:31 am UTCRh(D) NIPTRhD XWUMWDFT89/17/2025 12:31 am UTCSex Chromosome AneuploidyNOT WBUSWJAY96/17/2025 12:31 am UTCMonosomy XLOW RISK <1 in , 12:31 am UTCTrisomy 13LOW RISK <1 in , 12:31 am UTCTrisomy 18LOW RISK <1 in , 12:31 am UTCTrisomy 21LOW RISK <1 in , 12:31 am UTCFetal OszHMXJ8407/04/2025 12:31 am UTCPregnancy RflocjvvyWAWXCBLFC75/17/2025 12:31 am UTCFor detailed report, see PDFSee PDF 07/04/2025 12:31 am UTC07/04/2025 12:31 am UTC Social History Observation Value Start Date End Date
--- OUTSIDE RECORDS SUMMARY | 2025-10-17 06:34 | XMS_ITS | CCD ---
Author Organization [facility] Care Team Providers Care Tool Straightener Name Role Phone Lorenzo Natasha Unavailable MD Hamilton Monaco Primary Care Provider ANASTACIO Ventura Attending Provider [phone] PAY ., DR DURAND Admitting Unavailable PAY ., DR DURAND Consulting Unavailable PAY ., DR DURAND Attending Unavailable ÁNGELA, DR HAMILTON Nicholson Primary Care Unavailable KAYCE ., CED Consulting Unavailable Hamilton Monaco MD Primary Care Provider Steph, DO Sarah Lynch Attending Provider Sarah Choi Attending Unavailable Sarah Choi Admitting Unavailable Hamilton Monaco MD Primary Care Provider Hamilton Monaco MD Unavailable Miguel Olivera DO Unavailable [phone] Hamilton Monaco MD Unavailable Hamilton Monaco MD Primary Care Provider Hamilton Monaco MD Unavailable ELIZABETH STROUD Attending Unavailable RYAN TRUONG Attending Unavailable ERAN JOYA Attending Unavailable AIDE ISABEL Attending Unavailable Hamilton Monaco MD Primary Care Provider Miguel Olivera DO Unavailable [phone] Hamilton Monaco MD Unavailable Medications Current Medications MedicationDrug Class(es)DatesSig (Normalized)Sig (Original)azithromycin 250 mg oral tablet (3 sources)Macrolide AntimicrobialStart: 09-29-2023 End: 84-38-9187evowdrlloqwj (Zithromax Z-Dayton) 250 MG tablet Indications: Dysuria Take 2 tablets (500 mg) on Day 1,followed by 1 tablet (250 mg) once daily on Days 2 through 5. 6 tablet 09/29/2023 07/26/2024 DiscontinuedEthinyl Estradiol / norgestimate (5 sources)Progestin, EstrogenStart: 02-22-2024 End: 53-07-0098usbq 1 tablet by mouth once dailynorgestimate-ethinyl estradiol (Tri-Linyah) 0.18/0.215/0.25 MG-35 MCG tablet Indications: Family planning Take 1 tablet by mouth Daily 28 tablet 5 02/22/2024 07/26/2024 DiscontinuedStart: 02-22-2024 End: 62-65-5464lzot 1 tablet by mouth once dailynorgestimate-ethinyl estradiol (Tri-Linyah) 0.18/0.215/0.25 MG-35 MCG tablet Indications: Family planning Take 1 tablet by mouth Daily 28 tablet 5 02/22/2024 02/21/2025 Activetake 1 tablet by mouth once dailyTri-Linyah 0.18/0.215/0.25 MG-35 MCG TAKE 1 TABLET BY MOUTH DAILY Oral for 28 Days ActivemethylPREDNISolone (2 sources)CorticosteroidStart: 01-29-2025 End: 77-96-1842tetnisKSOYBXAyavur (Medrol Dospak) 4 MG tablets Indications: Posterior left knee pain , Tendinitis of left knee Follow schedule on package instructions 21 tablet 01/29/2025 02/05/2025 Activenitrofurantoin, macrocrystals 25 mg / nitrofurantoin, monohydrate 75 mg oral capsule (3 sources)Nitrofuran AntibacterialStart: 80-32-1297ndja 1 capsule by mouth every twelve hoursMacrobid 100 MG 1 capsule with food Orally every 12 hrs for 5 days February, ActivePrenatal Vit-Fe Fumarate-FA ( 19) 29-1 MG chewable tablet (5 sources)Start: 07-02-2025 End: 96-40-7559Dbufnrfc Vit-Fe Fumarate-FA ( 19) 29-1 MG chewable tablet Indications: 11 weeks gestation of ([facility]) , First trimester ([facility]) Chew 1 Units Daily 30 tablet 3 07/02/2025 08/01/2025 Active Progesterone 200 MG suppository (3 sources)Start: 05-14-2025 End: 33-81-3902Mnlmvroqboru 200 MG suppository Indications: History of miscarriage Insert 200 mg into the vagina at bedtime Insert suppository vaginally every night at bedtime until 12 weeks gestation 30 suppository 3 05/14/2025 06/13/2025 Activepyridoxine hydrochloride 25 mg oral tablet (5 sources)Start: 07-02-2025 End: 92-61-5924bbyv 1 tablet by mouth once dailypyridoxine (Vitamin B-6) 25 MG tablet Indications: 11 weeks gestation of ([facility]) , First trimester ([facility]) , Nausea and vomiting, unspecified vomiting type Take 1 tablet (25 mg) by mouth Daily 90 tablet 3 07/02/2025 08/01/2025 Active Completed/Discontinued Medications MedicationDrug Class(es)DatesSig (Normalized)Sig (Original)cefuroxime 250 mg oral tablet (7 sources)Cephalosporin AntibacterialStart: 10-19-2024 End: 17-14-8932orpg 1 tablet by mouth twice dailycefuroxime (Ceftin) 250 MG tablet Indications: Acute bronchitis, unspecified organism 1 po bid until all taken. 14 tablet 10/19/2024 05/31/2025 Discontinued (Therapy completed) cephalexin 500 mg oral capsule (11 sources)Cephalosporin AntibacterialStart: 07-24-2024 End: 64-21-5145kuzm 1 capsule by mouth every eight hourscephalexin (Keflex) 500 MG capsule Take 500 mg by mouth every 8 (eight) hours 07/24/2024 05/31/2025 Discontinued (Therapy completed)168 hr ethinyl estradiol 0.14147 mg/hr / norelgestromin 0.27462 mg/hr transdermal system (8 sources)Progestin, EstrogenStart: 07-31-2024 End: 23-06-9896vkwip 1 dose transdermal route every weeknorelgestromin-ethinyl estradiol (Xulane) 150-35 MCG/24HR Indications: Encounter for female family p rachell counseling Apply 1 patch each week for 3 weeks, then remove for 1 week. 3 patch 12 07/31/2024 05/23/2025 Discontinued (Therapy completed)ondansetron 4 mg disintegrating oral tablet (2 sources)Serotonin-3 Receptor AntagonistStart: 07-02-2025 End: 62-80-6205oigw 1 tablet by mouth every six hours for nauseaondansetron ODT (Zofran-ODT) 4 MG disintegrating tablet Indications: Nausea and vomiting, unspecified vomiting type Take 1 tablet (4 mg) by mouth every 6 (six) hours if needed for nausea or vomiting 30 tablet 2 07/02/2025 07/02/2025 Discontinued (Entered in error)Zafemy 150-35 MCG/24HR (11 sources)Start: 09-28-2024 End: 88-07-8725Plqvag 150-35 MCG/24HR 09/28/2024 07/02/2025 DiscontinuedStart: 47-82-1856Svzxep 150-35 MCG/24HR 09/28/2024 ActiveStart: 07-34-0101Dvbefl 150-35 MCG/24HR APPLY 1 patch EVERY WEEK FOR 3 WEEKS, then remove for 1 WEEK 09/28/2024 Active Problems Active Problems Problem ClassificationProblemDateDocumented DateEpisodic/ChronicAcute bronchitis (2 sources)Acute bronchitis; Translations: [Acute bronchitis, unspecified] 21-05-6837ImfbuudvLjlpbmzmrpcip symptoms and ill-defined conditions (8 sources)Dysuria; Translations: [Dysuria]Onset: 61-18-2240GkwjtacpXgnxvgkwl disorders (2 sources)Missed period; Translations: [Irregular menstruation, unspecified] 37-53-5523VjihflaUrcxqa and vomiting (2 sources)Nausea and vomiting; Translations: [Nausea with vomiting, unspecified]48-02-7377EijcwoirKsoib connective tissue disease (2 sources)Tendinitis of left knee; Translations: [Other specified enthesopathies of left lower limb, excluding foot]10-33-5510OvvsmuzuDpvmb nervous system disorders (2 sources)Chronic pain; Translations: [Other chronic pain]ChronicOther non- traumatic joint disorders (2 sources)Pain in left knee; Translations: [Pain in joint, lower leg]01-29-2025 EpisodicOther and delivery including normal (7 sources)Urine test positive; Translations: [Encounter for test, result positive]70-36-9510XjtdlyfqJjowjexo codes; unclassified (1 source)Gestation period, 6 weeks; Translations: [Less than 8 weeks gestation of ]68-78-5183LakgiasrIezvzogy codes; unclassified (2 sources)Gestation period, 11 weeks; Translations: [11 weeks gestation of ]01-31-5722BrbwzhgfJcfuaen tract infections (1 source)Acute cystitis with hematuriaEpisodic Past or Other Problems Problem ClassificationProblemDateDocumented DateEpisodic/ChronicContraceptive and procreative management (20 sources)Patient encounter status; Translations: [Encounter for other general counseling and advice on contraception]Onset: 746438-52-2843Lwkyxefe Residual codes; unclassified (10 sources)H/O: miscarriage; Translations: [Personal history of other complications of , childbirth and the puerperium]Onset: 08-02-2024 85-59-0735EntdyhqiHfyhjbaumjo (20 sources)Miscarriage; Translations: [Complete or unspecified spontaneous without complication]Onset: 062403-01-1567Bgphtepy Results Test NameValueInterpretationReference RangeFacilityRECURRENT VAGINITIS (HTRX)on 85-19-7464TNWACLTKE FYUWCQB58.016AbnormalNOMS HealthcareATOPOBIUM VAGINAE DetectedAbnormalNOMS HealthcareBVAB 2,3 (BACTERIAL VAGINOSIS ASSOCIATED BACTERIA 2, 3); MOBILUNCUS GRV1JTWF HealthcareBVAB 2,3 (BACTERIAL VAGINOSIS ASSOCIATED BACTERIA 2, 3); MOBILUNCUS SPPNot detectedNOMS HealthcareCANDIDA ALBICANS, PARAPSILOSIS, KCAWMJKRHD57.602AbnormalNOMS HealthcareCANDIDA ALBICANS, PARAPSILOSIS, TROPICALISDetectedAbnormalNOMS HealthcareCANDIDA RBSXEAOL7TSRZ HealthcareCANDIDA GLABRATANot detectedNOMS HealthcareCANDIDA XQUPLB7SQJG HealthcareCANDIDA KRUSEINot detectedNOMS HealthcareCHLAMYDIA MLSWPMLDXGF2TIDA HealthcareCHLAMYDIA TRACHOMATISNot detectedNOMS HealthcareERMB, C; MEFA17.871 AbnormalNOMS HealthcareERMB, C; MEFADetectedAbnormalNOMS HealthcareGARDNERELLA EOHPXZEEM06.042AbnormalNOMS HealthcareGARDNERELLA VAGINALISDetectedAbnormalNOMS HealthcareInterpretation and review of laboratory resultsAbnormalNOMS Healthcare MEGASPHAERA (TYPES 1, 2)0NOMS HealthcareMEGASPHAERA (TYPES 1, 2)Not detectedNOMS HealthcareMYCOPLASMA VQHZOBPBMW6KJXH HealthcareMYCOPLASMA GENITALIUMNot detected NOMS HealthcareNEISSERIA GCINPEVWXJA4KPQM HealthcareNEISSERIA GONORRHOEAENot detectedNOMS HealthcareTRICHOMONAS UONJEPNYO3GHPB HealthcareTRICHOMONAS VAGINALISNot detectedNOMS HealthcareNOMS HealthcareUrinalysis macro (dipstick) panel (U)on 39-96-9872Otypuuspb, UANegativeNegative - 4(70) +++ mg/dLNOMS HealthcareBlood, UANegativeNegative - 50 Murray/mcLNOMS HealthcareClarity, UAClear NOMS HealthcareColor, UAYellowNOMS HealthcareGlucose, UANegativeNegative - 1999(110) ++++ mg/dLNOMS HealthcareInterpretation and review of laboratory resultsAbnormalNONM HealthcareKetones, UAPositiveNegative - 160(16) ++++ mg/dL NOMS HealthcareLeukocytes, UA1+Negative - 500+++ Bharat/mcLNOMS HealthcareNitrite, UANegativeNegative - PositiveNOMS HealthcarepH, UA6.55 - 9NOMS Healthcare Protein, UATraceNegative - 2000(20) ++++ mg/dLNOMS HealthcareSpec Grav, UA1.0101 - 1.03NOMS HealthcareUrobilinogen, UA1.00.2 - 12 mg/dLNOMS HealthcareNOMS HealthcareUrinalysis macro (dipstick) panel (U)on 68-57-1004Ljrfvtsee, UA NegativeNegative - 4(70) +++ mg/dLNOMS HealthcareBlood, UANegativeNegative - 50 Murray/mcLNOMS HealthcareClarity, UAClearNOMS HealthcareColor, UAYellowNOMS HealthcareGlucose, UANegativeNegative - 1999(110) ++++ mg/dLNOMS Healthcare Interpretation and review of laboratory resultsAbnormalNOMS HealthcareKetones, UAPositiveNegative - 160(16) ++++ mg/dLExcelsior Springs Medical CenterLeukocytes, UANegative Negative - 500+++ Bharat/mcLNOCox MonettNitrite, UANegativeNegative - Positive NOMS HealthcarepH, UA65 - 9NONM HealthcareProtein, UAPositiveNegative - 2000(20) ++++ mg/dLExcelsior Springs Medical CenterSpec Grav, UA1.0251 - 1.03NONM HealthcareUrobilinogen, UA1.00.2 - 12 mg/dLFreeman Heart Institute HealthcareALL CBC WITH AUTO DIFFon 61-82-3261EVSYTSPNV ABSOLUTE RHSU5OMKMExcelsior Springs Medical CenterBasophils/100 WBC (Bld)0.5 %0.2 - 2.0 %[facility] CenterEosinophils/100 WBC (Bld)3.4 %0.9 - 7.0 %[facility] Erythrocyte distribution width (RBC) [Ratio]12.2 %11.0 - 15.0 %[facility] Hematocrit (Bld) [Volume fraction]36.9 %36.0 - 48.0 %[facility] CenterHemoglobin (Bld) [Mass/Vol]12.7 g/dL12.0 - 16.0 g/dLExcelsior Springs Medical CenterIMMATURE GRANULOCYTES ABS CDCY2KZXYExcelsior Springs Medical CenterImmature granulocytes/100 WBC (Bld)0 %0.0 - 0.5 %[facility] CenterInterpretation and review of laboratory resultsAbSelect Specialty [facility] LYMPHOCYTES ABSOLUTE AUTO1.4Excelsior Springs Medical CenterLymphocytes/100 WBC (Bld)24.7 %20.5 - 60.0 %[facility] HospitalH (RBC) [Entitic mass]31.4 pg26.7 - 34.0 pgSt. Lukes Des Peres HospitalHC (RBC) [Mass/Vol]34.4 g/dL29.9 - 35.2 g/dLSt. Lukes Des Peres HospitalV (RBC) [Entitic vol]91.1 fL81.0 - 99.0 fLExcelsior Springs Medical CenterMONOCYTES ABSOLUTE AUTO0.4NOCox MonettMonocytes/100 WBC (Bld)6.7 %1.7 - 12.0 %[facility] CenterNEUTROPHILS ABSOLUTE AUTO3.8NOCox MonettNeutrophils/100 WBC (Bld)64.7 %43.0 - 75.0 %NOMS HealthcarePlatelet mean volume (Bld) [Entitic vol]11.1 fL9.5 - 13.5 fLNONM HealthcareTBH EO #0.2NOMS HealthcareTBH EGE537WHOI HealthcareTB RBC4.05LowNOMS HealthcareTBH WBC5.8NOMS HealthcareCLINISYNCNROGER MILLS [facility] HealthcareBOX TESTon 06-27-2025 BOX TEST SENT OUTUNITYNONM SciqxgwkotXUC1WXRBZJBRX ZeqkesghtqFRJ046/10/2025NONM HealthcareCLINISYNCNROGER MILLS [facility] HealthcareHCG ( test) Ql (U)on 05-31-2025 Interpretation and review of laboratory resultsAbnormalNOCox MonettPreg Test, UrPositiveNegativeNOSaint John's [facility] HealthcareUS OB TRANSVAGINALon 05-31-2025 US OB TRANSVAGINALFINDINGS: A single intrauterine gestational sac is present. [...] current sonographic age of 6 weeks and 4days resulting in an estimated date of delivery of January 20, 2026. 2. Probable intramural, fundal fibroid. TRANSCRIBED BY: ELECTRONICALLY SIGNED BY: Cordell LizNot AvailableComment on above:Order Comment: US OB TRANSVAGINAL No LMP recorded.Urinalysis macro (dipstick) panel (U)on 22-04-7835Zbipgfofb, UA NegativeNegative - 4(70) +++ mg/dLNOMS HealthcareBlood, UANegativeNegative - 50 Murray/mcLNOMS HealthcareClarity, UAClearNOMS HealthcareColor, UAYellowNOMS HealthcareGlucose, UANegativeNegative - 2000(110) ++++ mg/dLACADIA HEALTHCARE Healthcare Interpretation and review of laboratory resultsAbnormalNONM HealthcareKetones, UAPositiveNegative - 160(16) ++++ mg/dLNONM HealthcareLeukocytes, UANegative Negative - 500+++ Bharat/mcLNONM HealthcareNitrite, UANegativeNegative - Positive NOMS HealthcarepH, UA65 - 9NONM HealthcareProtein, UANegativeNegative - 1999(20) ++++ mg/dLNONM HealthcareSpec Grav, UA1.021 - 1.03NONM HealthcareUrobilinogen, UA1.00.2 - 12 mg/dLNOCox MonettNOCox MonettTB PREG QUANT HCGon 05-16-2025 HCG KPCRFJHPCXZB921oQD/mLNROGER MILLS [facility]OR[facility] HealthcareComment on above:5-50 0.2-1 WEEK 50-500 1-2 WEEKS 100-5,000 2-3 WEEKS 500-10,000 3-4 WEEKS 1,000-50,000 4-5 WEEKS 10,000-100,000 5-6 WEEKS 15,000-200,000 6-8 WEEKS 10,000-100,000 2-3 MON[facility] PREG QUANT HCGon 67-24-6351IME OLIKGYNFLAIY008nMP/mL [facility] HealthcareComment on above:5-50 0.2-1 WEEK 50-500 1-2 WEEKS 100-5,000 2-3 WEEKS 500-10,000 3-4 WEEKS 1,000-50,000 4-5 WEEKS 10,000-100,000 5-6 WEEKS 15,000-200,000 6-8 WEEKS 10,000-100,000 2-3 MONTHS CLINISYBlount Memorial HospitalTB PREG QUANT HCGon 41-23-8787HQO WBLNNBACZODG8wJA/mL [facility] HealthcareComment on above:5-50 0.2-1 WEEK 50-500 1-2 WEEKS 100-5,000 2-3 WEEKS 500-10,000 3-4 WEEKS 1,000-50,000 4-5 WEEKS 10,000-100,000 5-6 WEEKS 15,000-200,000 6-8 WEEKS 10,000-100,000 2-3 MONTHS CLINISYALNONM HealthcareUS PELVIS TRANSVAGINALon 63-33-8289[address] [address] Ultrasound Report Signed Patient: NATASHA SANCHEZ MR#: [id number] : 2000 Acct:[id number] Age/Sex: 23 / F ADM Date: 08/02/24 Loc: [facility] Attending Dr: Aide Isabel Ordering Physician: Aide Isabel Date of Service: 08/02/24 Procedure(s): US pelvis transvaginal Accession Number(s): [id number] cc: Aide Isabel; Hamilton Monaco M.D. [place] [id number] Patient Name: NATASHA SANCHEZ MRN: [id number] date: 2000 Sex: F Assigned Patient Location: [facility] Current Patient Location: Accession/Order Number: [id number] Exam Date: 08/02/2024 14:36 Report Date: 08/04/2024 [...] M.D. Signed By: 08/04/2423 DD/ 0 TD/TT: Erp Business Analyst:TBHRadiology, Radiologist, - 08/04/2024 [place] [address] Ultrasound Report Signed Patient: NATASHA SANCHEZ MR#: [id number] : 2000 Acct:[id number] Age/Sex: 23 / F ADM Date: 08/02/24 Loc: [facility] Attending Dr: Aide Isabel Ordering Physician: Aide Isabel Date of Service: 08/02/24 Procedure(s): US pelvis transvaginal Accession Number(s): [id number] cc: Aide Isabel; Hamilton Monaco M.D. [address] [place] [address] Patient Name: NATASHA SANCHEZ MRN: [id number] date: 2000 Sex: F Assigned Patient Location: [facility] Current Patient Location: Accession/Order Number: [id number] Exam Date: 08/02/2024 14:36 Report Date: 08/04/2024 [...] Dictated By: Sakina Hernandez M.D. Signed By: 08/04/24722 DD/ 0 TD/TT: Erp Business Analyst: KULDEEP HealthcareRadiology Study observation (narrative)NOMS HealthcareUS PELVIS TRANSVAGINALOrdered By: Radiologist Radiology on 17-91-6421IOJF Healthcare Work Phone: [facility] PREG QUANT HCGon 26-39-3222CUZ PBSQSBXEEIOM465 mIU/mLNOMS HealthcareComment on above:5-50 0.2-1 WEEK 50-500 1-2 WEEKS 100-5,000 2-3 WEEKS 500-10,000 3-4 WEEKS 1,000-50,000 4-5 WEEKS 10,000-100,000 5-6 WEEKS 15,000-200,000 6-8 WEEKS 10,000-100,000 2-3 MONTHS CLINISYNCNONM HealthcareLon 88-51-4600BCmmppyzu: [id number] Received: 07/26/241318 Status: MORGAN Londono Num: [id number] Spec Type: Surgical Subm Dr: Sarah Choi DO Tissues: A Products of Conception - Spontaneous or Missed (POD) Procedures: HE/6, Gross/Micro L4 Age/ Patient Sex Location Account Attending Physician Natasha Sanchez 23/F LABELL [id number] Sarah Choi DO SPEC NUM: [id number] RECD: 07/26/24 STATUS: MORGAN LONDONO NUM: [id number] KIMBERLYN: 07/26/24- SUBM DR: Sarah Choi DO ENTERED: 07/26/[address] [facility] [address]: Ja Avila SPEC TYPE: Surgical DEPT: HOA MCKEON ENTERED BY: [id number] RECV BY: [id number] ORDERED: HE/6, Gross/Micro L4 ORDERED: HE/6, Gross/Micro [...] 0.5 cm Outer canthus 1.0 cm Specimen: [id number] Received: 07/26/24 Status: BELENRamiro Londono Num: [id number] Spec Type: Surgical Subm Dr: Sarah Choi DO Tissues: A Products of Conception - Spontaneous or Missed (POD) Procedures: HE/6, Gross/Micro L4 Patient: Natasha Sanchez [id number] (Continued) Specimen: [id number] Received: 07/26/24 (Continued) Gross Description (Continued) Signed (signature on file) Kerline Stevens MD 07/29/24 4225 Specimen: [id number] Received: 07/26/24 Status: MORGAN Londono Num: [id number] Spec Type: Surgical Subm Dr: Sarah Choi DO Tissues: A Products of Conception - Spontaneous or Missed (POD) Procedures: HE/6, Gross/Micro L4 Patient: Natasha Sanchez [id number] (Continued) Specimen: [id number] Received: 07/26/24 (Continued) Gross Description (Continued) Head circumference 4.1 cm Chest circumference 3.7 cm Abdomen circumference 4.0 cm Attached umbilical cord 3.5 cm in length with a diameter of 0.2 cm Right hand 0.3 cm Left hand 0.4 cm Right foot 0.4 cm Left foot 0.3 cm [place] to rump 5.5 cm [place] to heel 6.5 cm Received in the same container is a 65 g 11.0 x 8.0 x 1.5 cm ovoid placenta. The surface is pink-wade with underdeveloped vascular structures. The umbilical cord and insertion point is not identified. The membranes are wade-brown, thickened and inserted at the margin. The maternal surface is wade-pink with underdeveloped,cotyledons. Server Service Assistant sections are as follows: A1 membranes A2-A5 full-thickness sections A6 hemorrhagic region DM Microscopic Description Microscopic examinations are performed supporting the above interpretation [facility] Codes 88609 [id number] Specimen: [id number] Received: 07/26/24 Status: MORGAN Londono Num: [id number] Spec Type: Surgical Subm Dr: Sarah Lnych Marker DO Tissues: A Products of Conception - Spontaneous or Missed (POD) Procedures: /, Gross/Micro L4 Patient: Natasha Sanchez [id number] (Continued) Signed (signature on file) Kerline Paula (more content not included)...NormalPalmetto General Hospital Physician GroupURINE CULTURE, ROUTINEon 10-78-2122Mnghezju identified Cx Nom (U) Urine Culture, Routine NOMS HealthcareBacteria identified Cx Nom (U)Mixed urogenital floraNOMS HealthcareBacteria identified Cx Nom (U)50,000-100,000 colony forming units per mLNOMS HealthcareBacteria identified Cx Nom (U)[facility]formed at: [facility] NOMS HealthcareBacteria identified Cx Nom (U)[address] [place], [place] [id number] HealthcareBacteria identified Cx Nom (U)Counseling Specialist: Junaid Bullard PhD, Phone: [phone] HealthcareCLINISYNCNOMS HealthcareER URINE PROFILEon 45-94-1001Lvztprhdy Ql (U)NegativeNormalNEGATIVENewark Hospital Comment on above:Performed By: #### KATHI UMICRO #### [facility] [address] [place] [address] Dr. Honorio Umana (U)CLEARNormalCLEARNewark HospitalComment on above: Performed By: #### KATHI, UMICRO #### [facility] [address] [place] [address] Dr. Honorio Smith (U)DK. YELLOWNormalYELLOWNewark HospitalComment on above:Performed By: #### KATHI, UMICRO #### [facility] [address] [place] [address] [address] Honorio Dominguez micrscopic examination will be performed if indicated. NormalNewark HospitalComment on above:Performed By: #### ERUR, UMICRO #### [facility] [address] [place] [address] Dr. Honorio Dumontose Ql (U)NegativeNormalNEGATIVENewark HospitalComment on above:Performed By: #### KATHI, UMICRO #### [facility] [address] [place] [address] Dr. Honorio StevensHemoglobin Ql (U)SMALLAbnormalNEGATIVENewark Hospital Comment on above:Performed By: #### KATHI UMICRO #### [facility] [address] [place] [address] [address] Honorio StevensKetones Ql (U)NegativeNormalNEGATIVEThe Berger HospitalComment on above:Performed By: #### KATHI UMICRO #### [facility] [address] [place] [address] Dr. Honorio StevensLEUKOCYTESNegativeNormalNEGATIVENewark HospitalComment on above:Performed By: #### KATHI UMICRO #### [facility] [address] [place] [address] Dr. Honorio StevensNitrite Ql (U)NegativeNormalNEGATIVENewark HospitalComment on above:Performed By: #### KATHI UMICRO #### [facility] [address] [place] [address] Dr. Honorio StevenspH (U)6.5 [pH]Normal5-9Newark HospitalComment on above: Performed By: #### KATHI UMICRO #### [facility] [address] [place] [address] Dr. Honorio StevensSPEC GRAVITY1.691Qbmiod8.005-<=1.025The Berger HospitalComment on above:Performed By: #### KATHI UMICRO #### [facility] [address] [place] [address] Dr. Honorio Sharma PROTEINNegativeNormalNEGATIVE/ TRACEThe [facility] Comment on above:Performed By: #### KATHI UMICRO #### [facility] [address] [place] [address] Dr. Honorio Saez MICRO INDINDICATEDNormalThKettering Memorial HospitalComment on above: Performed By: #### KATHI UMICRO #### [facility] [address] [place] [address] Dr. Honorio Jha Qn (U)0.2 {Jamaal'U}/dLNormal0.2 - 1.0The [facility] on above:Performed By: #### KATHI UMICRO #### [facility] [address] [place] [address] Dr. Honorio QuinonesGNANCY URon 42-56-6888AWJISKHDH, QUALNegativeNormalNEGATIVEThe Berger HospitalComment on above:Performed By: #### PREGU #### [facility] [address] [place] [address] Dr. Honorio Nicholas MICROSCOPIC ONLYon 97-07-6849DKXQVLPTGIRP SEENNormalNONE SEENNewark HospitalComascension genesys hospital on above:Performed By: #### KATHI UMICRO #### [facility] [address] [place] [address] Dr. Honorio Ramachandran identified Cx Nom (U)NOT INDICATEDNormalThKettering Memorial HospitalComascension genesys hospital on above:Performed By: #### KATHI UMICRO #### [facility] [address] [place] [address] Dr. Honorio ShipleySEENAbnormalNONE SEENNewark HospitalComascension genesys hospital on above: Performed By: #### KATHI UMICRO #### [facility] [address] [place] [address] Dr. Honorio StevensCrystals LM Nom (Urine sed)NONE SEENNormalNONE SEENNewark HospitalComascension genesys hospital on above:Performed By: #### ERUSo UMICRO #### [facility] [address] [place] [address] Dr. Olmedo ChangEpithelial cells LM Ql (Urine sed)FEWAbnormalNONE SEEN /RAREThe [facility] HospitalComascension genesys hospital on above:Performed By: #### ERUR UMICRO #### [facility] [address] [place] [address] Dr. Honorio MauricioALINE CASTRARENormalNewark HospitalComment on above: Performed By: #### ERUSo UMICRO #### [facility] [address] [place] [address] [address] Honorio StonerUSTRACEAbnormalNONE SEENNewark HospitalComment on above:Performed By: #### GILL ARMENTA #### [facility] [address] [place] [address] [address] Honorio StevensLmuydDOQ4-1Usudxe0-6Tdw Berger HospitalComment on above:Performed By: #### GILL ARMENTA #### [facility] [address] [address] [address] Honorio StevensWBCNONE SEENNormalNONE SEENThe Berger HospitalComment on above: Performed By: #### GILL ARMENTA #### [facility] [address] [address] [address] Honorio StevensUrinalysis - AUTOMATEDon 29-81-0357Ckrpqoppwu (U)clearBent Pixels Other Bilirubin Ql (U)Negativedianboom Just[place] Other Color (U)orangedianboom [place] Other Glucose Ql (U)Negativedianboom [place] Other Hemoglobin Ql (U)Negativedianboom [place] Other Ketones Ql (U)Negativedianboom [place] Other Leukocyte esterase Test strip Ql (U)traceNodianboom [place] Other Nitrite Ql (U)Positivedianboom Just[place] Other pH (U)8.5 [pH][place] Other Protein Ql (U)Negativedianboom [place] Other Specific gravity (U) [Rel density]1.020Nocox branson Justyle Other Urobilinogen (U) [Mass/Vol]1.0 mg/dLdianboom Just[place] Other Urinalysis - AUTOMATEDNorth Justyle Other Vital Signs Date TimeVital SignValuePerforming KugharhdcNojkjewi78-47-6808 14:45-0400Body mass index (BMI) [Ratio]25.89 kg/m2Aide Yoan HODGES Work Phone: [facility] CenterDfwdqlqreb23-13-6327 14:45-0400Body .14 kgAide Yoan HODGES Work Phone: [phone] [place], [place] [address]Wvzhfhpyoi82-44-2640 14:45-0400Diastolic blood qmakqlva68 mm[Hg]Aide HODGES Work Phone: [phone] [place], [place] [address]Juwryfchdp11-12-1751 14:45-0400Systolic blood ghaapbgh19 mm[Hg]Aide Yoan HODGES Work Phone: [phone] [place], [place] [address]Invaddzfjx73-00-8350 14:23-0400Body mass index (BMI) [Ratio]26.23 kg/v3Szjdq Toan DO Work Phone: [phone] [place], [place] [address]Fmxdqxfwht46-85-3348 14:23-0400Body wljujv93.96 kgCorey Toan DO Work Phone: [phone] [place], [place] [address]Qfqtrtpweu88-36-6725 14:23-0400Diastolic blood jycscpbd28 mm[Hg]Eran Toan DO Work Phone: [phone] [place], [place] [address]Hbepobjfol38-95-8945 14:23-0400Systolic blood nyzbmvbh047 mm[Hg]Eran Toan DO Work Phone: [phone] [place], [place] [address]Oswuxakrmj88-00-6473 14:46-0400Body mass index (BMI) [Ratio]25.7 kg/m7ZduzvBethesda Hospital08-14-2025 14:46-0400Body weight 61.69 kgBethesda Hospital08-14-2025 14:46-0400Diastolic blood mm[Hg][facility]08-14-2025 14:46-0400Systolic blood eszgbfaw444 mm[Hg][facility]04-14-2025 18:29-0400Body mass index (BMI) [Ratio] 24.98 kg/v8CpoibzyElizabeth Stroud [employer] Work Phone: [facility] CenterCbxbqkozzw01-98-6299 18:29-0400Body temperature 98.01 [degF]Elizabeth Stroud [employer] Work Phone: NOCox MonettTbikimyvth07-70-3719 18:29-0400Body lyxemo46.97 kgElizabeth Stroud [employer] Work Phone: [facility] CenterBjhchincpa69-27-9255 18:29-0400Diastolic blood ioyhporf27 mm[Hg]Elizabeth Stroud [employer] Work Phone: [facility] CenterHetlenbpzd79-22-3914 18:29-0400Heart rate86 /min Elizabeth Stroud [employer] Work Phone: [facility] CenterQbrkvovlzj29-77-1306 18:29-3759XmS4% (BldA) [Mass fraction]99 %Elizabeth Stroud [employer] Work Phone: [facility] CenterKpnucynndx54-01-9112 18:29-0400Systolic blood mm[Hg]Elizabeth Stroud [employer] Work Phone: [facility] CenterGfydzgnuxx50-63-3285 19:18-0500Body temperature 98.2 [degF]Ryan Truong DO Work Phone: NOCox MonettQieepinrus37-52-1889 19:18-0500Diastolic blood lmprqvuf41 mm[Hg]Ryan Truong DO Work Phone: NOCox MonettNazjvodnch76-44-6951 19:18-0500Heart uura553 /min Ryan Truong DO Work Phone: NOCox MonettLmhwbsrymf13-04-0218 19:18-8761DsZ5% (BldA) [Mass fraction]95 %Ryan Truong DO Work Phone: NOCox MonettNfmfhafgfw02-12-4923 19:18-0500Systolic blood uzvgiyas346 mm[Hg]Ryan Truong DO Work Phone: NOCox MonettFywvayelyi59-84-7721 14:17-0400Body godgfx009.9 cmHamilton Monaco MD Work Phone: [facility] CenterCdtuvelgqb75-46-4765 14:17-0400Body mass index (BMI) [Ratio]24.94 kg/m2Hamilton Monaco MD Work Phone: [facility] CenterKwdtqatdqn11-99-1609 14:17-0400Body temperature 97.5 [degF]Hamilton Monaco MD Work Phone: [facility] CenterKrnzdxhxpi58-06-8349 14:17-0400Body yidgfj46.88 kgHamilton Monaco MD Work Phone: [facility] CenterHwnhtdpqpx13-55-3370 14:17-0400Diastolic blood vjymhqid28 mm[Hg]Hamilton Monaco MD Work Phone: [facility] CenterLlpvtnrvck29-55-2677 14:17-0400Heart rate79 /min Hamilton Monaco MD Work Phone: [facility] CenterTpehpmonwf00-36-9133 14:17-0400Respiratory rate20 /minHamilton Monaco MD Work Phone: [facility] CenterTvgryhtqft33-24-3982 14:17-0214AzP6% (BldA) [Mass fraction]99 %Hamilton Monaco MD Work Phone: [facility] CenterSdoscgofrv54-44-5429 14:17-0400Systolic blood kudqabfj959 mm[Hg]Hamilton Monaco MD Work Phone: [facility] CenterEnulouwxfx89-34-5999 11:09-0400Body fmcotz600.9 Randee HODGES Work Phone: [facility] CenterOtxqhtsxwe13-22-2610 11:09-0400Body mass index (BMI) [Ratio]24.75 kg/m2Aide HODGES Work Phone: NOCox MonettKrdqptvxid67-57-1369 11:09-0400Body zmcgan68.42 kgAide HODGES Work Phone: [address] [address]Dvuecigvdf98-24-7974 11:09-0400Diastolic blood ydrbhaip60 mm[Hg]Aide HODGES Work Phone: [facility] CenterJfdersmgcj58-19-1835 11:09-0400Systolic blood zpeycgbu181 mm[Hg]Aide Domingoannette HODGES Work Phone: NO Pslmkwesxh16-67-8716 12:50-0400Body iuahdw393.94 Ran Ventura Other [place] Other Encounters Encounter DateEncounter TypeCare ProviderFacilityStart: 08-01-2025 End: 05-88-6548Dsrqpdq encounter procedureAide Domingoannette HODGES Work Phone: NO HealthcareStart: 08-01-2025 End: 55-21-5009Lopcyefk flow sheetAide HODGES Work Phone: NO [place] [facility]BGYNComment on above:Second trimester ([facility]); Well woman exam with routine gynecological examStart: 08-01-2025 End: 15-78-9776qurwzuyfxdQFQ RAMEYNot AvailableStart: 08-01-2025 End: 69-86-1128Vpufue flowsheetAide Drury PA Work Phone: no [place] [facility]BGYNStart: 08-01-2025 End: 13-61-1185Qrzltv flowsheetAide Isabel TRACIE Work Phone: no [place] [facility]BGYNStart: 08-01-2025 End: 14-59-5547Uaagalqa Result EncounterAide Yoan HODGES Work Phone: NOPS External Department UnsolicitedStart: 07-02-2025 End: 83-60-4010Esohvmty flow sheetCorey Toan DO Work Phone: no [place] OBGYNComment on above:11 weeks gestation of ([facility]); First trimester ([facility]); Nausea and vomiting, unspecified vomiting typeStart: 07-02-2025 End: 12-67-3885qgrvechidbGHTBA FAZIONot AvailableStart: 07-02-2025 End: 31-64-8174Gtzzzh flowsheetCorey Toan DO Work Phone: NOUF [place] [facility]BGYNStart: 07-02-2025 End: 69-85-5181Ovktmk flowsheetCorey Toan DO Work Phone: noms [place] [facility]BGYNStart: 06-27-2025 End: 12-55-6326Gbswegvnm Result EncounterDoreen Ruthie [employer]ER [employer]ER Work Phone: noms External Department UnsolicitedStart: 06-27-2025 End: 53-59-0599Lqnwazyfc Result EncounterDoreen Westonerly [employer]ER Work Phone: noms External Department UnsolicitedStart: 05-31-2025 End: 27-06-8853Rbunlc outpatient visit 5 minutesFavikram Nurse [facility]oms Bcp ObKULDEEP Hollandue OBGYNComment on above:GA: 7v5vZfqqk: 05-31-2025 End: 65-78-6649uyyvogiirpKWXUMPO AUSTINNot AvailableStart: 05-16-2025 End: 46-45-4616Wdfpotehh Result EncounterGeneric External Data ProviderNOMS External Department UnsolicitedStart: 05-16-2025 End: 83-46-1530Tvmkxvcba Result EncounterGeneric External Data ProviderNOMS External Department UnsolicitedStart: 05-14-2025 End: 60-89-1377Cepmlstrr Result EncounterCorey Toan DO Work Phone: noms External Department UnsolicitedStart: 05-14-2025 End: 88-43-1097Rjxkmryyx Result EncounterCorey Toan DO Work Phone: noms External Department UnsolicitedStart: 01-29-2025 End: 27-18-1491vlsddwckfmKDUFUGE N AUSTINNot AvailableStart: 01-29-2025 End: 07-61-5754Bqyuwg outpatient visit 25 minutesLinmj Stroud [employer]OMATIC [employer]ER [employer]ER Work Phone: noms SWS UCComment on above:Posterior left knee pain (Primary Dx); Tendinitis of left kneeStart: 10-19-2024 End: 04-55-1801aumajbbsyrDRUN J BRUNERNot AvailableStart: 10-19-2024 End: 86-75-2113Nytano outpatient visit 25 minutesRyan Truong DO Work Phone: noms [facility] UCComment on above:Acute bronchitis, unspecified organism (Primary Dx)Start: 08-22-2024 End: 02-63-5800Idvpilkiv Result EncounterGeneric External Data ProviderNOMS External Department UnsolicitedStart: 08-22-2024 End: 17-73-2272Jlibbwcot Result EncounterGeneric External Data ProviderNOMS External Department UnsolicitedStart: 08-04-2024 End: 64-50-7616Vrdpljhvt Result EncounterGeneric External Data ProviderNOMS External Department UnsolicitedStart: 08-04-2024 End: 80-09-3528Jdfbpskeo Result EncounterGeneric External Data ProviderNOMS External Department UnsolicitedStart: 07-31-2024 End: 78-52-4544Fhraye outpatient visit 15 minutesHamilton Monaco MD Work Phone: noms CW FMComment on above:Miscarriage (Primary Dx); Encounter for female family planning counselingStart: 07-31-2024 End: 69-61-0991Bkermhwyb Result EncounterGeneric External Data ProviderNOMS External Department UnsolicitedStart: 07-31-2024 End: 56-08-6336Qjvaqjzja Result EncounterGeneric External Data ProviderNOMS External Department UnsolicitedStart: 07-26-2024 End: 85-85-9404Ykdwtq outpatient visit 15 minutesAide HODGES Work Phone: noms [facility] OBComment on above:MiscarriageStart: 07-26-2024 End: 52-46-5116gqyoacnmdcFnljahf Cris [facility]erC[facility] Work Phone: Start: 07-26-2024 End: 89-58-2884Axdggwyq ReferredDO Sarah Marker Work Phone: [facility] Path Spec [place] HospStart: 07-24-2024 End: 89-63-0735Dxbonbakd Result EncounterGeneric External Data ProviderNOMS External Department UnsolicitedStart: 07-24-2024 End: 81-22-4253Djhvoneyf Result EncounterGeneric External Data ProviderNOMS External Department UnsolicitedStart: 02-19-2023 End: 54-80-5713jurgkfvwtpJE KIZZY LAINEZ .Facility:O9Jmura: 02-18-2023 End: 57-55-1205blgirhaegbLwzta Keller Other Nocox branson Justyle Other Start: 06-44-9222Cryttdxur encounterAmber LorenzoFPG Urgent Care Eldridge RoadStart: 11-89-4051Jfyjwb outpatient visit 15 minutesAmber Leo Urgent Care ClydeStart: 02-14-2023 End: 72-18-1209lbsgsaykqyQJ Hamilton Murguiaso Work Phone: Nocox branson Just[place] Other Start: 02-14-2023 End: 42-36-4388Kxhzaxbs ReferredMD Hamilton Monaco Work Phone: [facility] [address] [place] Work Phone: Procedures DateProcedureProcedure DetailPerforming ClinicianStart: 64-82-7662VRYSAJOLO VAGINITIS (HTRX)Aide HODGES Work Phone: Start: 71-19-1671Xnfga dip stick/tablet rgnt non-auto w/o micrscpAmy Yoan HODGES Work Phone: Start: 01-86-4956Fmmmn dip stick/tablet rgnt non-auto w/o micrscpCorey Toan DO Work Phone: Start: 22-76-6191YUS CBC WITH AUTO DIFFCorey Toan DO Work Phone: Start: 92-37-2247UUW TESTDoreen Hendricks NP Work Phone: Start: 78-27-9148Qctua dip stick/tablet rgnt non-auto w/o micrscpCorey Toan DO Work Phone: Start: 31-80-9009TJH PREG QUANT HCGCorey Toan DO Work Phone: Start: 63-19-4946BGX PREG QUANT HCGGeneric External Data ProviderStart: 80-30-0297RPG PREG QUANT HCGGeneric External Data Provider Start: 91-50-4193BH PELVIS TRANSVAGINALGeneric External Data ProviderStart: 84-90-1211ETT PREG QUANT HCGAmy Yoan HODGES Work Phone: Start: 05-87-2765Jalfuygk identified in Urine by CultureGeneric External Data Provider Plan of Treatment DateCare ActivityDetailAuthorStart: 09-05-2025 End: 58-05-4290Uqfmnly encounter dhwvqaori94/19/2025 2:50 PM EST Routine [facility] [address] [place], [id number] Eran Joya DO [address] [place] [address] [facility] [place] [facility]BGYNStart: 08-01-2025 End: 66-40-1721Vlnndze encounter procedureNOMS [place] OBGYNComment on above: ArrivedStart: 08-01-2025 End: 01-36-9235Ybobx fetoprotein, maternalAlpha fetoprotein, maternal Lab Routine Second trimester ([facility]) Expected: 08/01/2025 (Approximate), Expires: 10/01/2025NOMS HealthcareComment on above:Expected: 08/01/2025 (Approximate), Expires: 10/01/2025Start: 07-02-2025 End: 85-43-8210Hvandfz encounter procedureNOMS [place] OBGYNComment on above: ArrivedStart: 84-59-9754Wzghwjlvy vaccinationNOMS HealthcareStart: 05-31-2025 End: 87-56-1787LXI/RhABO/Rh Lab Routine Missed menses , unspecified gestational age ([facility]) Expected: 05/31/2025 (Approximate), Expires: 05/31/2026NONM HealthcareComment on above:Expected: 05/31/2025 (Approximate), Expires: 05/31/2026Start: 05-31-2025 End: 25-91-1712dhluffeofm26/14/2025 2:00 PM EDT Initial [facility] [place], [id number] [facility] [place] [facility]BGYNStart: 05-31-2025 End: 19-91-8786Aoijl type and Indirect antibody screen panel - BloodType and screen Lab Routine Missed menses , unspecified gestational age ([facility]) Expected: 05/31/2025 (Approximate), Expires: 05/31/2026[facility] Comment on above:Expected: 05/31/2025 (Approximate), Expires: 05/31/2026Start: 05-31-2025 End: 69-03-7983Gfxkm of abuse panel - Urine by Screen methodRapid drug screen, urine Lab Routine , unspecified gestational age ([facility]) Encounter for supervision of normal first in first trimester ([facility]) Expected: 05/31/2025 (Approximate), Expires: 05/31/2026NONM HealthcareComment on above: Expected: 05/31/2025 (Approximate), Expires: 05/31/2026Start: 05-31-2025 End: 24-10-4948Sqmbdptykndb / ancillary services mspfysnxdj78/14/2025 1:30 PM EDT Ancillary Procedure [facility] [place] [address] [place] [id number] [facility] [place] [facility]BGYNStart: 05-23-2025 End: 79-67-3500YG Pelvis transvaginalUS OB transvaginal Imaging Routine Missed menses Positive urine test ([facility]) Expected: 05/23/2025, Expires: 08/23/2025[facility] Work Phone: comment on above:Expected: 05/23/2025, Expires: 08/23/2025Start: 08-02-2024 End: 61-36-7403Gimtbmzrqfka / ancillary services huhtcpawml11/16/2024 2:30 PM EDT Ancillary Procedure [facility] [address] [place] [address] [phone] BCP OBStart: 07-31-2024 End: 03-15-8077Lxbokdf encounter euibugwyh03/14/2024 2:15 PM EDT Office Visit [facility] [address] [place] [address] Hamilton Monaco MD [address] [place] [address] [facility] FMStart: 07-26-2024 End: 90-06-1242DA for pregnancyUS PELVIS-TRANSVAG IF INDICATED Imaging Routine Miscarriage Expected: 07/26/2024 (Approximate), Expires: 07/26/2025[facility] Work Phone: comment on above:Expected: 07/26/2024 (Approximate), Expires: 07/26/2025Start: 07-26-2024 End: 96-73-6803Jvpfdup encounter /09/2024 11:10 AM EDT Office Visit [facility] [address] [place] [phone] Aide Isabel PA [address] [place] [address] NOMS BCP OBStart: 72-09-4194Vvlgwtzfv vaccinationInfluenza Vaccine (#1)NOMS HealthcareStart: 46-40-9525Rtwmljma identified in Urine by CultureUrine CultureMercy Health St. Joseph Warren HospitalBacteria identified in Urine by CultureUrine culture Microbiology Routine Missed menses Ordered: 05/31/2025[facility] HealthcareComment on above:Ordered: 5CBC W Auto Differential panel - BloodCBC and differential Lab Routine Missed menses , unspecified gestational age ([facility]) Ordered: 05/31/2025[facility] HealthcareComment on above:Ordered: 05/31/2025HLAMYDIA TRACHOMATIS (GENITO/STI) CHLAMYDIA TRACHOMATIS (GENITO/STI) Lab Routine Second trimester ([facility]) Ordered: 08/01/2025[facility] HealthcareComment on above:Ordered: 08/01/2025 Cytology Cervical or vaginal smear or scraping studyPap Smear Pathology and Cytology Routine Second trimester ([facility]) Ordered: 08/01/2025[facility] HealthcareComment on above:Ordered: 08/01/2025Hemoglobin A1c/Hemoglobin.total in BloodHemoglobin A1c Lab Routine Missed menses , unspecified gestational age ([facility]) Ordered: 05/31/2025[facility] HealthcareComment on above: Ordered: 05/31/2025Hepatitis B virus surface Ag [Presence] in Serum or Plasma by ImmunoassayHepatitis B surface antigen Lab Routine Missed menses , unspecified gestational age ([facility]) Ordered: 05/31/2025[facility] HealthcareComment on above:Ordered: 05/31/2025Hepatitis C virus Ab [Presence] in Serum or Plasma by ImmunoassayHepatitis C antibody Lab Routine Missed menses , unspecified gestational age ([facility]) Ordered: 05/31/2025[facility] HealthcareComment on above:Ordered: 05/31/2025HIV-1/HIV-2 antigen/antibody combination immunoassay HIV-1 and HIV-2 antibodies Lab Routine Missed menses , unspecified gestational age ([facility]) Ordered: 05/31/2025[facility] HealthcareComment on above: Ordered: 05/31/2025Neisseria gonorrhoeae DNA [Presence] in Unspecified specimen by JEFFREY with probe detectionNeisseria gonorrhea DNA probe, direct Lab Routine Second trimester ([facility]) Ordered: 08/01/2025[facility] HealthcareComment on above:Ordered: 08/01/2025Reagin Ab [Presence] in Serum by RPRRPR Lab Routine Missed menses , unspecified gestational age ([facility]) Ordered: 05/31/2025[facility] HealthcareComment on above:Ordered: 05/31/2025Rubella antibody, IgGRubella antibody, IgG Lab Routine Missed menses , unspecified gestational age ([facility]) Ordered: 05/31/2025[facility] HealthcareComment on above: Ordered: 05/31/2025SURESWAB(R) ADVANCED VAGINITIS PLUS, TMASURESWAB(R) ADVANCED VAGINITIS PLUS, TMA Pathology and Cytology Routine Second trimester ( [facility]) Ordered: 08/01/2025[facility] [employer] Work Phone: comment on above:Ordered: 08/01/2025US Pelvis transvaginalUS OB transvaginal Imaging Routine Missed menses Positive urine test ([facility]) 52:02 PM EDTExcelsior Springs Medical Center Payers DatePayer CategoryPayerPolicy [id number]-dlc [id number] Cross Blue Shield [id number] BCBS [id number] 2020-[facility] [phone] [address] [place] [address] [id number] 2.16.840.1.168068.3.57[id number] 2.16.840.1.464586.3.57[id number] 2.16.840.1.047000.3.57[id number] 2.16.840.1.080107.3.57[id number] 2.16.840.1.995265.3.57[id number] 2.16.840.1.825045.3.57[id number] 2..840.1.823384.3.57[id number] 2..840.1.989702.3.579.2.214809-25-2943SbcfGallup Indian Medical [id number] 2..840.1.729619.19MedicaidParamlos gatos campus [id number] 2..840.1.048028.3.579.2.531 Social History DateTypeDetailFacilityUnknown if ever smokedRosebush Justyle Other Start: 09-27-2023 End: 36-46-1688Zga Assigned At [facility] Justyle Other Start: 35-01-6639Hwp [facility]igned At [facility] Hospitaltart: 35-50-9439Xoqnqbn smoking status NHISNever smoked tobaccoNOMS HealthcareStart: 84-51-0850Cmitcyg use and exposureSmokeless tobacco non-userNOMS HealthcareStart: 09-27-2023 End: 44-85-5795Wscdeyuxh beverage intakeLifetime non-drinker (finding)NOMS HealthcareStart: 09-27-2023 End: 49-13-7329Azzoqah of Social functionNOMS HealthcareStart: 67-59-7445Baa assigned at birthNot on fileNOMS HealthcareStart: 77-52-1535Emilwjs smoking status NHISTobacco smoking consumption unknownNOMS HealthcareStart: 04-29-2025 PregnancyNOMS HealthcareStart: 58-16-9528DjsEhiwhcMSYS Healthcare Clinical Notes 02-14-2023 to 08-01-2025 Note Date & XhvyLgvaCevamghf60-40-0253 History of Present illness Narrative* TRACIE Parry - 08/01/2025 2:20 PM EDT Reason for Appointment: Patient ID: Natasha Brock is a 24 y.o. female who presents for Routine Visit Patient presents today for Annual Exam. and Return OB appointment. MEDICATIONS Current Outpatient Medications Medication Instructions Vit-Fe Fumarate-FA ( 19) 29-1 MG chewable tablet 1 Units, Oral, Daily pyridoxine (VITAMIN B-6) 25 mg, Oral, Daily ALLERGIES Allergies[1] PROBLEMS Active Ambulatory Problems Diagnosis Date Noted Miscarriage ([facility]) 07/31/2024 Encounter for female family planning counseling 07/31/2024 H/O one miscarriage 08/02/2024 Resolved Ambulatory Problems Diagnosis Date Noted No Resolved Ambulatory Problems No Additional Past Medical History HISTORY PAST MEDICAL HISTORY SOCIAL HISTORY Medical History[2] Social History Tobacco Use Smoking status: Never Smokeless tobacco: Never Substance Use Topics Alcohol use: Never Drug use: Not on file FAMILY HISTORY Family History[3] SURGICAL HISTORY Surgical History[4] REVIEW OF SYSTEMS Review of Systems: Review of Systems Constitutional: Negative. HENT: Negative. Eyes: Negative. Respiratory: Negative. Cardiovascular: Negative. Gastrointestinal: Negative. Genitourinary: Negative. Musculoskeletal: Negative. Skin: Negative. Neurological: Negative. All other systems reviewed and are negative. Hematological: Negative. Endocrine: Negative. Allergic/Immunologic: Negative. OBJECTIVE Objective: Physical Exam Constitutional: Appearance: Normal appearance. Genitourinary: Right Adnexa: not tender and no mass present. Left Adnexa: not tender and no mass present. No cervical discharge. Breasts: Breasts are soft. Right: Normal. Left: Normal. HENT: Head: Normocephalic. Nose: Nose normal. Mouth/Throat: Mouth: Mucous membranes are moist. Cardiovascular: Rate and Rhythm: Normal rate. Pulmonary: Effort: Pulmonary effort is normal. Abdominal: General: Bowel sounds are normal. Palpations: Abdomen is soft. Musculoskeletal: General: Normal range of motion. Cervical back: Normal range of motion. Neurological: General: No focal deficit present. Mental Status: She is alert. Skin: General: Skin is warm and dry. Psychiatric: Mood and Affect: Mood normal. Vitals and nursing note reviewed. Exam conducted with a certified medical dosimetrist present. Vitals: Estimated body mass index is 25.89 kg/m as calculated from the following: Height as of 07/31/24: 5' 1 . Weight as of this encounter: 137 lb. BP: 92/52 Patient's last menstrual period was 03/26/2025. ASSESSMENT & PLAN ICD-10-CM 1. Second trimester ([facility]) Z34.92 SURESWAB(R) ADVANCED VAGINITIS PLUS, TMA CHLAMYDIA TRACHOMATIS (GENITO/STI) Neisseria gonorrhea DNA probe, direct Pap Smear Alpha fetoprotein, maternal Alpha fetoprotein, maternal 2. Well woman exam with routine gynecological exam Z01.419 POCT urinalysis dipstick manually resulted Return OB/Annual Exam: Patient presents today for a annual exam/routine obstetrics appointment. Patient is currently 19y8jzthmlzxv. Patient states she is doing well but has complaints of nausea in the morning. Pap and cultures was obtained without difficulty and patient was given orders for anatomy scan and msAFP to be obtained. Orders Placed This Encounter Procedures CHLAMYDIA TRACHOMATIS (GENITO/STI) Neisseria gonorrhea DNA probe, direct Alpha fetoprotein, maternal POCT urinalysis dipstick manually resulted Follow Up: Patient is to schedule annual exam for next year and return to office in 4 weeks for OB appointment. Documented by TRACIE Parry on behalf of: TRACIE Parry [1] No Known Allergies [2] Past Medical History: Diagnosis Date H/O one miscarriage 08/02/2024 [3] No family history on file. [4] History reviewed. No pertinent surgical history. documented in this encounterExcels[facility] [id number] History of Present illness Narrative* Geneva Rodríguez, SHAHBAZ - 07/02/2025 2:20 PM EDT Reason for Appointment: Patient ID: Natasha Brock [...] Active Ambulatory Problems Diagnosis Date Noted Miscarriage ([facility]) 07/31/2024 Encounter for female family planning counseling [...] nursing note reviewed. Exam conducted with a certified medical dosimetrist present. Vitals: Estimated body mass index is 26.23 kg/m as calculated from the following: Height as of 07/31/24: 5' 1 . Weight as of this encounter: 138 lb 12.8 oz. BP: 100/62 Patient's last menstrual period was 03/26/2025. ASSESSMENT & PLAN ICD-10-CM 1. 11 weeks gestation of ([facility]) Z3A.11 POCT urinalysis dipstick manually resulted Vit-Fe Fumarate-FA ( 19) 29-1 MG chewable tablet pyridoxine (Vitamin B-6) 25 MG tablet 2. First trimester ([facility]) Z34.91 POCT urinalysis dipstick manually resulted Vit-Fe [...] or undercooked meat, and stay away from [facility]. Patient has been consulted regarding any further do's and don'tsof . Patient voiced understanding and all questions [...] of: Eran Joya DO documented in this encounterExcelsior Springs Medical [id number] History of Present illness Narrative* Doreen Hendricks NP - 05/31/2025 2:00 PM EDT error * Mica Hunter MA - 05/31/2025 2:00 PM EDT Reason for Appointment: Patient ID: Natasha Brock [...] Active Ambulatory Problems Diagnosis Date Noted Miscarriage ([facility]) 07/31/2024 Encounter for female family planning counseling [...] urinalysis dipstick manually resulted Positive urine test ([facility]) - US OB transvaginal; Future Amenorrhea - POCT , urine manually resulted - POCT urinalysis dipstick manually resulted 6 weeks gestation of ([facility]) , unspecified gestational age ([facility]) - Type and screen; Future - ABO/Rh; Future - CBC and differential - Hemoglobin A1c - RPR - Rubella antibody, IgG - Hepatitis B surface antigen - Hepatitis C antibody - HIV-1 and HIV-2 antibodies - Rapid drug screen, urine; Future Encounter for supervision of normal first in first trimester ([facility]) - Rapid drug screen, urine; Future Nurse Note: Patient desires Mulv[place] billion to one. Pt was advised to have both labs and [place] done at the same time @ 9 weeks gestation at [facility]. PV[facility]. Pt has a h/o one [...] by: Mica Hunter MA documented in this encounterExcelsior Springs Medical [id number] History of Present illness Narrative* Elizabeth Stroud, TOSHIA - 01/29/2025 6:20 PM EDT Images from the original note were not [...] pain. She denies any known injury or falls.She states, Used to be a runner . [...] 21 tablet; Refill: 0 documented in this encounterExcelsior Springs Medical [id number] History of Present illness Narrative* Ryan Truong, - 10/19/2024 7:05 PM EST Images from the original note were not included. [address] , [address] [facility], [address] P: [phone] F: [phone] HPI Historian of HPI: patient Natasha Brock [...] fever. RTO if worsening. documented in this encounterExcelsior Springs Medical [id number] History of Present illness Narrative* Hamilton Monaco MD - 07/31/2024 3:13 PM EDTAssociated Problem(s): Encounter for female family planning counseling Start patches. * Hamilton Monaco MD - 07/31/2024 3:13 PM EDTAssociated Problem(s): Miscarriage Recent miscarriage and labs improving. Follow with OB. Feels like handling well and monitor for depression. * Hamilton Monaco MD - 07/31/2024 2:15 PM EDT Images from the original note were not included. Subjective Patient ID: Natasha Sanchez is a 23 y.o. female who presents for Follow-up (Er f/u). ER follow up from 07/24 and 07/26 after a miscarriage. Patient was about 10 weeks and developed vaginal bleeding. To ER and HCG 4047. US performed and no cardiac activity compatible with fetaldemise. Given keflex and told follow with OB. Continued bleeding and very heavy. Returned to ER andHCG improved. Advised follow with OB and was [...] estradiol (Xulane) 150-35 MCG/24HR documented in this encounterExcelsior Springs Medical [id number] History of Present illness Narrative* TRACIE Parry - 07/26/2024 11:10 AM EDT Reason for Appointment: Patient ID: Natasha Sanchez [...] miscarriage. I have discussed HCG lab levels andmiscarriage with patient in detail. Patient was given [...] behalf of: TRACIE Parry documented in this encounterExcelsior Springs Medical [id number] Evaluation note* Encounter Date Diagnosis Assessment Notes Treatment Notes Treatment Clinical Notes Jan, Dysuria (ICD-10 - R30.0) Jan,cute cystitis with hematuria (ICD-10 - N30.01) Discussed [...] understanding and is agreeable to treatment plan. [facility] [employer] Other Evaluation noteNo assessment information available [facility] Work Phone: Evaluation noteNo InformationNortSt. Mary Rehabilitation Hospital [employer] Other Evaluation note* Diagnosis Miscarriage Unspecified spontaneous [...] unspecified organism- Primary [facility] Diagnosis Miscarriage- Primary Unspecified spontaneous without mention of complication Encounter for female family planning counseling Posterior left knee pain- Primary Tendinitis of left knee documented [facility] this encounter [facility]* Diagnosis Miscarriage ([facility])- Primary Unspecified spontaneous without mention of complication Encounter for female family planning counseling Missed menses Positive urine test ([facility]) Amenorrhea Absence of menstruation 6 weeks gestation of ([facility]) , unspecified gestational age ([facility]) Encounter for supervision of normal first in first trimester ([facility]) documented [facility] this encounter [facility]* Diagnosis Miscarriage ([facility])- Primary Unspecified spontaneous without mention of complication Encounter for female family planning counseling 11 weeks gestation of ([facility]) First trimester ([facility]) state, incidental Nausea and vomiting, unspecified vomiting type documented [facility] this encounter [facility]* Diagnosis Miscarriage ([facility])- Primary Unspecified spontaneous without mention of complication Encounter for female family planning counseling Second trimester ([facility]) state, incidental Well woman exam with routine gynecological exam Routine gynecological examination documented in this encounter [facility] Advance Directives Advance Directive Response Recorded Date/ Time Advance Directives No November 04, 2020 9:01pm Summary Purpose Family History No Family History Records FoundNo Family History Records FoundNo Family History Records Found Additional Source Comments REASON FOR VISIT (unrecogniz ed section and content) ReasonCommentsMiscarriageReasonCommentsFollow-upEr f/uReasonCommentsKnee Pain LeftReasonCommentsAmenorrheaReasonCommentsRoutine Visit Care Teams (unrecognized sec tion and content) Team Status: Active Member Role Status Dates Hamilton Monaco MD Primary Care Provider Active Team Status: Inactive Member Role Status Dates Hamilton Monaco MD Primary Care Provider Active Lazaro Mendez ProviderActiveTeam MemberRelationshipSpecialty Start DateEnd Date Hamilton Monaco MD [address] [place] [address] PCP - GeneralFawaly Medicine06/28/24 Team Status: Inactive Member Role Status Dates Sarah Choi DO Attending Provider Active Start: July 26, 2024 End: July 26, 2024Team MemberRelationshipSpecialtyStart DateEnd Date Hamilton Monaco MD [address] [place] [address] PCP - GeneralFamily Medicine06/28/24Team MemberRelationshipSpecialtyStart DateEnd Date Hamilton Monaco MD [address] [place] [address] PCP - GeneralFamily Medicine06/28/24Team MemberRelationshipSpecialtyStart DateEnd Date Hamilton Monaco MD [address] [place] [address] PCP - GeneralFamily Medicine06/28/24Team MemberRelationshipSpecialtyStart DateEnd Date Hamilton Monaco MD [address] [place] [address] PCP - GeneralFamily Medicine10/19/24 Miguel Olivera DO [address] [facility] [address] [place] [address] PCP - [employer]06/18/23 Hamilton Monaco MD [address] [place] [address] Family Medicine10/19/24Team MemberRelationshipSpecialtyStart DateEnd Date Hamilton Monaco MD [address] [place] [address] PCP - GeneralFamily Medicine10/19/24 Hamilton Monaco MD [address] [place] [address] PCP - [facility] Ywuqjlbqgi00/1/24 Hamilton Monaco MD [address] [place] [address] [facility]10/19/24Team MemberRelationshipSpecialtyStart DateEnd Date Hamilton Monaco MD [address] [place] [address] PCP - [facility]10/19/24 Hamilton Monaco MD [address] [place] [address] [facility]10/19/24Team MemberRelationshipSpecialtyStart DateEnd Date Hamilton Monaco MD [address] [place] [address] PCP - [facility]10/19/24 Hamilton Monaco MD [address] [place] [address] [facility]10/19/24Team MemberRelationshipSpecialtyStart DateEnd Date Hamilton Monaco MD [address] [place] [address] PCP - [facility] Medicine10/19/24 Hamilton Monaco MD [address] [place] [address] Family Medicine10/19/24Team MemberRelationshipSpecialtyStart DateEnd Date Hamilton Monaco [facility]/24 Hamilton Monaco MD Family Medicine10/19/24Team MemberRelationshipSpecialtyStart DateEnd Date Hamilton Monaco MD PCP - [facility] Medicine10/19/24 Hamilton Monaco MD Family [facility]10/19/24Team MemberRelationshipSpecialtyStart DateEnd Date Hamilton Monaco MD PCP - [facility] Medicine10/19/24 Hamilton Monaco MD Family [facility]10/19/24Team MemberRelationshipSpecialtyStart DateEnd Date Hamilton Monaco MD PCP - [facility] Medicine10/19/24 Hamilton Monaco MD Family [facility]10/19/24Team MemberRelationshipSpecialtyStart DateEnd Date Hamilton Monaco [facility]/24 Hamilton Monaco MD Family Medicine10/19/24Team MemberRelationshipSpecialtyStart DateEnd Date Hamilton Monaco MD PCP - Generalmily Medicine10/19/24 Hamilton Monaco MD Family Medicine10/19/24Team MemberRelationshipSpecialtyStart DateEnd Date Hamilton Monaco MD PCP - Generalmily Medicine Hamilton Monaco MD [facility] - [facility]10/19/24 Miguel Olivera DO [address] [place] [address] PCP - [employer]06/18/2311 Hamilton Monaco MD [address] [place] [address] PCP - [facility] Wsmuqyrwtv84/1/244 Hamilton Monaco MD Family Medicine10/19/24 Goals (unrecognized section and content) Goals may be documented in a n alternate section INFORMATION SOURCE (unrecogn ized section and content) DATE CREATED AUTHOR 02/25/2023 [facility] DATE CREATED AUTHOR AUTHOR'S ORGANIZ ATION 07/31/2024 [facility] DATE CREATED AUTHOR AUTHOR'S ORGANIZ ATION 08/03/2025 [facility] EPIC FOR RECORDS PERTAINING TO PATIENTS [...] BE BASED ON THE PRIMARY CLINICAL RECORDS. [facility]. provides no warranty or guarantee of the accuracy or completeness of information in this document.
--- OUTSIDE RECORDS SUMMARY | 2025-10-17 06:34 | XMS_ITS | Encounter Summary ---
Author Organization [facility] Address [address] [place] [address] Care Team Providers Care Wire Transfer Clerk Name Role Phone Hamilton Monaco MD Primary Care Provider [phone] Hamilton Monaco MD Unavailable Encounter Details DateTypeDepartmentCare Team (Latest Contact Info)Xaqvjqvvqms69/17/2025amboo flowsheet [facility] [place] [facility] [address] [place] [address] Dimas Joya DO [address] [place] [address] Social History Tobacco UseTypesPacks/DayYears UsedDateSmoking Tobacco: NeverSmokeless Tobacco: NeverAlcohol UseStandard Drinks/WeekCommentsNever0 (1 standard drink = 0.6 oz pure alcohol)Estimated Date of YvgeozuvCuhdjedqPxq77/05/2026Based on UltrasoundSex and Gender InformationValueDate RecordedSex Assigned at BirthNot on fileLegal KagVkcdol05/14/2023 6:17 PM EDTGender IdentityNot on fileSexual OrientationNot on filedocumented as of this encounter Plan of Treatment DateTypeDepartmentCare Team (Latest Contact Info)Seylcvpfpir37/14/2026 1:30 PM ESTRoutine [facility] [place] [facility] [address] [place] [address] Doreen Hendricks, WORKFORCE ANALYST [address] [place] [address] documented as of this encounter Visit Diagnoses Not on filedocumented in this encounter Care Teams Team MemberRelationshipSpecialtyStart DateEnd Date Hamilton Monaco MD [address] [place] [address] PCP - Generalmi Medicine10/19/24 Hamilton Monaco MD [address] [place] [address] Family Medicine10/19/24documented as of this encounter
[2025-10-17 07:54] LABS: Hematocrit 30.4 % (36.0-48.0); Hemoglobin 10.0 g/dL (12.0-16.0); Immature Granulocytes Abs Auto 0.01 10^3/uL (0.00-0.03); Immature Granulocytes Pct Auto 0.2 % (0.0-0.5); Lymphocytes Absolute Auto 1.3 10^3/uL (1.2-3.8); Mean Corpuscular HGB Conc 32.9 g/dL (29.9-35.2); Mean Corpuscular Hemoglobin 31.3 pg (26.7-34.0); Mean Corpuscular Volume 95.3 fL (81.0-99.0); Platelet Count 230 10^3/uL (150-450); Red Blood Count 3.19 10^6/uL (4.20-5.40); White Blood Count 6.5 10^3/uL (4.0-11.0)
[2025-10-17 08:11] LABS: Glucose 1 Hour 89 mg/dL (<130)
== END 2025-10-17 06:32 | disposition home or self-care (01) ==
LOC: LAB 06:31
PROVIDERS: PCP Family Medicine; Visit Provider Obstetrics & Gynecology
DX: Z13.1 Encounter for screening for diabetes mellitus (principal)
CPT/HCPCS: 36415; 82950; 85025